=== PATIENT | male | born 1950 | race Caucasian/White ===

== ENCOUNTER 2019-09-10 15:58 | Inpatient (IN) | payer OTHER ==
[~2019-09-10] VITALS: Ht 188 cm; Wt 126.1 kg
[2019-09-10] VITALS (12 sets, daily range): BP systolic 86–145; BP diastolic 54–93
--- NOTE | ~2019-09-10 | EMS ---
[place] [address] EMS Patient Care Report Name: CAROLYN LOPEZ Room: [address] IN M.R.#: [id number] Admission: 09/10/19 Attend Phys: Dc Garber, Discharge: Date of : 54 Report #: [id number] THIS REPORT FOR: //name// Report Transmitted: 09/10/2019 18:15 EMS Care Summary [facility]ident [id number] @ 09/10/2019 14:48 Incident Location [address] [address] Patient CAROLYN LOPEZ Male, 68 Years 1950 Patient Address [address] [place] [address] Patient History Chronic Obstructive Pulmonary Disease (COPD),Atrial Fibrillation,Alcohol Abuse, Patient Allergies No known allergies, Patient Medications Furosemide, Gabapentin, Pantoprazole, Prednisone, Citalopram, Eliquis, Oxygen, Diltiazem, Albuterol, Chief Complaint Difficulty Breathing Disposition Transported No Lights/Dime Box, Upgraded Dispatch Reason Breathing Problem Transported To [facility] Narrative Dispatched: Med 2 was toned for a second out call; a male with difficulty breathing, moments of lost consciousness, and bleeding for days. [address] [address] EMS Patient Care Report Name: CAROLYN LOPEZ Room: [address] IN [facility]#: [id number] Admission: 09/10/19 Attend Phys: Dc Garber, Discharge: Date of : 54 Report #: [id number] Chief Complaint/Condition: The patient was found in a seated position on a scooter. A/Ox4, GCS 15 with visible difficulty breathing. The patient was talking a short sentences with Officer Jared of [facility] giving a history of the event. The patient later told EMS that he was withdrawing from alcohol and had these symptoms before. History of Present illness/Injury: The patient gave a very vague history to EMS. He stated that he was released from two weeks prior but was unclear about the circumstances around his admission. He stated that he has had multiple falls since his release with injuries to his arms that he had been self bandaging. The patient also reported difficulty breathing for multiple days. He stated that he has woke up in various places in his apartment due to losing consciousness. It wasn't until transport that the patient stated that he was trying to withdraw from alcohol and had gone from a half gallon of whiskey a day down to two shots. The patient called 911 after waking from a moment of lost consciousness. Assessment: The patient was a male in his 60's, initially A/Ox4, GCS 15 with reported moments of lost consciousness. Airway patent, breathing equal, regular, fast, and with wheezes. CMS present with weak, irregular pulses. Skin pink, warm, and diaphoretic. See section for further. Reason for Ambulance: The patient originally requested transport back to . reported high call volume. After explaining the high call volume designation, the patient requested that EMS contact his son for further guidance on transport. The son requested transport to [facility]. The patient agreed. (delayed scene time due to EMS discussing transport options with patient) While in transport, the patient's condition deteriorated rapidly. Transport to [facility] was chosen due to closest facility and the patient's worsening condition. Treatments: EKG/!2 lead showing AFIB RVR. Oxygen administered via ETCO2 cannula, nebulizer, and BVM. Waveform showing obstruction with tachypnea. Improvement in waveform noted post breathing treatment. Kerlix utilized to restrain patient's arms due to him becoming increasingly violent. Patient continued to fight EMS while applying soft restraint. Chemical sedation opted. See section for further information. Summary: Med 2 responded due to Med 1 being on another alarm. Sawyer Nozzle Tender Melinda assisted EMS on the call via on scene requested mutual aid. Med 2 arrived and made patient contact. Vitals obtained and treatment initiated. Report received from Officer Jared and the patient gave a brief history. Delayed scene time due to patient deciding on hospital choice. The patient had to be physically moved from his scooter onto the stretcher due to weakness. Hospital choice made after consulting [place] [address] EMS Patient Care Report Name: JESSICACAROLYN Room: [address] IN M.R.#: [id number] Admission: 09/10/19 Attend Phys: Dc Garber, Discharge: Date of : 54 Report #: [id number] secured in Med 2. Transport started towards [place]. The patient informed EMS that he was an alcoholic and that he had quit drinking with the exception of "2 shots of whiskey today." He said that he had detoxed from alcohol before with the same symptoms. While en route, the patient's mental status decreased. He began to pull his EKG off (multiple times) and fight against providers assisting him. Transport was upgraded to emergent due to his condition deteriorating. Versed was given due to his combative nature. Immediately following the medication push, the patient had a significant drop in GCS and he bit his tongue. Report called into [facility] and transport diverted to that facility due to patient presentation. Bleeding controlled by staff and BVM utilized when the patient's respiratory effort decreased. The patient was delivered into the ED at [facility] and placed in Trauma 1. Report given to staff and the patient was sheet transferred to bed. Signatures obtained and paperwork gathered. Med 2 cleared the hospital and returned. Initial Vitals @15:58R: 14,GCS: 6,EtCO2: 0,SpO2: 90, @15:53P: 116,R: 12,BP: 77/49,GCS: 6,EtCO2: 8,SpO2: 88,Revised Trauma: 9, @15:43R: 28,GCS: 10,EtCO2: 42, @15:38P: 148,R: 30,BP: 133/101,GCS: 13,EtCO2: 43,SpO2: 93,Revised Trauma: 11, @15:33P: 161,R: 20,GCS: 14,EtCO2: 29,SpO2: 92, @15:48P: 96,R: 26,GCS: 9,EtCO2: 35, @15:01R: 30,BP: 158/82,GCS: 15,Glucose: 218,Revised Trauma: 11, @15:19P: 127,R: 29,GCS: 15,EtCO2: 37,SpO2: 95, @15:13P: 130,R: 32,GCS: 15,EtCO2: 53,SpO2: 94, @15:28P: 133,R: 27,GCS: 15,EtCO2: 49,SpO2: 92, Assessments @14:55MENTAL:Person Oriented,Time Oriented,Event Oriented,Place Oriented,SKIN:Diaphoresis,HEENT:LUNG SOUNDS:ABDOMEN:PELVIS//GI:EXTREMITIES:Left Arm: Abnormal Pulse,Right Arm: Abnormal Pulse,Left Leg: Edema,Left Leg: Weakness,Right Leg: Edema,Right Leg: Weakness,PULSE:Radial: 1+ Thready,NEURO:Tremors,Abnormal Gait,@15:50MENTAL:Unresponsive,SKIN:Diaphoresis,Cold,Pale,HEENT:Neck/Airway: Compromised,LUNG SOUNDS:Left Upper: Distension,Left Lower: Distension,Right Upper: Distension,Right Lower: Distension,ABDOMEN:Left Upper: Distension,Left Lower: Distension,Right Upper: Distension,Right Lower: Distension,PELVIS//GI:EXTREMITIES:Right Arm: Abnormal Pulse,Left Leg: Edema,Right Leg: Edema,Left Arm: Abnormal Pulse,PULSE:Radial: 1+ Thready,NEURO:Other,Tremors, Impression Alcohol dependence with withdrawal Procedures @15:46Midazolam - 2.5 Milligrams (mg) - Intravenous (IV)Response: [place] [address] EMS Patient Care Report Name: CAROLYN LOPEZ Room: [address] IN M.R.#: [id number] Admission: 09/10/19 Attend Phys: Dc Garber, Discharge: Date of : 54 Report #: [id number] Worse@15:50Oxygen FlowRate: 25 Device: Bag Valve Mask (BVM) Response: ImprovedSucceeded@15:1912-Lead ECGResponse: UnchangedSucceeded@15:25Albuterol - 2.5 Milligrams (mg) - NebulizedResponse: Improved@15:25Atrovent - 0.5 Milligrams (mg) - NebulizedResponse: Improved@15:00Oxygen FlowRate: 6 Device: CO2 Nasal Cannula Response: ImprovedSucceeded@15:25Oxygen FlowRate: 8 Device: Nebulizer Response: ImprovedSucceeded@15:38Patient RestraintResponse: UnchangedFailed@14:55ALS AssessmentResponse: UnchangedSucceeded@15:20BandagingResponse: ImprovedSucceeded@15:24Lactated Ringers 500cc (18 ga) Site: Antecubital-LeftResponse: UnchangedSucceeded@15:52OPA Response: UnchangedFailed Timeline 14:48,Call Received 14:48,Dispatched 14:49,En Route 14:53,On Scene 14:55,At Patient 14:55,ALS Assessment,Response: UnchangedSucceeded, 15:00,Oxygen FlowRate: 6 Device: CO2 Nasal Cannula Response: ImprovedSucceeded, 15:01,BP: 158/82 M,PULSE: ,RR: 30 R,SPO2: Ox,ETCO2: ,B,PAIN: ,GCS: 15, 15:13,BP: / M,PULSE: 130,RR: 32 R,SPO2: 94 Ox,ETCO2: 53 ,BG: ,PAIN: ,GCS: 15, 15:19,12-Lead ECG,Response: UnchangedSucceeded, 15:19,BP: / M,PULSE: 127,RR: 29 R,SPO2: 95 Ox,ETCO2: 37 ,BG: ,PAIN: ,GCS: 15, 15:19,Depart Scene 15:20,Bandaging,Response: ImprovedSucceeded, 15:24,Lactated Ringers 500cc 18 ga Site: Antecubital-Left,Response: UnchangedSucceeded, 15:25,Oxygen FlowRate: 8 Device: Nebulizer Response: ImprovedSucceeded, 15:25,Albuterol - 2.5 Milligrams (mg) - Nebulized,Response: Improved 15:25,Atrovent - 0.5 Milligrams (mg) - Nebulized,Response: Improved 15:28,BP: / M,PULSE: 133,RR: 27 R,SPO2: 92 Ox,ETCO2: 49 ,BG: ,PAIN: ,GCS: 15, 15:33,BP: / M,PULSE: 161,RR: 20 R,SPO2: 92 Ox,ETCO2: 29 ,BG: ,PAIN: ,GCS: 14, 15:38,Patient Restraint,Response: UnchangedFailed, 15:38,BP: 133/101 M,PULSE: 148,RR: 30 R,SPO2: 93 Ox,ETCO2: 43 ,BG: ,PAIN: ,GCS: 13, 15:43,BP: / M,PULSE: ,RR: 28 R,SPO2: Ox,ETCO2: 42 ,BG: ,PAIN: ,GCS: 10, 15:46,Midazolam - 2.5 Milligrams (mg) - Intravenous (IV),Response: Worse 15:48,BP: / M,PULSE: 96,RR: 26 R,SPO2: Ox,ETCO2: 35 ,BG: ,PAIN: ,GCS: 9, 15:50,Oxygen FlowRate: 25 Device: Bag Valve Mask (BVM) Response: ImprovedSucceeded, 15:52,OPA Response: UnchangedFailed, 15:53,BP: 77/49 M,PULSE: 116,RR: 12 R,SPO2: 88 Ox,ETCO2: 8 ,BG: ,PAIN: ,GCS: 6, 15:55,At Destination 15:58,BP: / M,PULSE: ,RR: 14 R,SPO2: 90 Ox,ETCO2: 0 ,BG: ,PAIN: ,GCS: 6, 16:45,Call Closed [facility] [address] [place] [address] EMS Patient Care Report Name: CAROLYN LOPEZ Room: [address] ADM IN M.R.#: [id number] Admission: 09/10/19 Attend Phys: Dc Garber, Discharge: Date of : 54 Report #: [id number] Disclaimer v1.1 Copyright 2019 [employer] This EMS Care Summary contains data elements from the applicable legal record (which may be displayed differently). It is designed to provide pertinent information for the following purposes: continuity of care, clinical quality, and state data reporting. The complete legal record is available to ED staff and administrators of the receiving hospital in [employer]'s Patient Tracker. All data is provided "as is."
--- NOTE | ~2019-09-10 | CON ---
[address] [address] CONSULTATION Name: CAROLYN LOPEZ Room: [address] IN M.R.#: [id number] Admission: 09/10/19 Attend Phys: Dc Garber, Discharge: Date of : 54 Report #: [id number] THIS REPORT FOR: //name// CC: EDMUNDO ANNE Physician staff Dc Garber DATE OF SERVICE: 09/11/2019 REQUESTING PHYSICIAN: Dc Garber MD REASON FOR CONSULTATION: Acute kidney injury. HISTORY OF PRESENT ILLNESS: The patient is a 68-year-old white male with medical history significant for severe alcoholism, history of morbid obesity, and atrial fibrillation who was recently discharged from [facility]. He was found to be unresponsive, a bottle of whiskey was found next to him. He was brought to Emergency Room, had to be intubated and now he is in Intensive Care Unit. He was febrile, hypotensive and acute kidney injury. He was seen by Dr. Hackett, Control Systems Developer and diagnosis was acute respiratory failure superimposed on chronic respiratory failure. The patient has end-stage COPD, most likely also has sepsis due to aspiration pneumonia. PAST MEDICAL HISTORY: As I mentioned earlier. SOCIAL HISTORY: Positive for severe alcoholism and tobaccoism. FAMILY HISTORY: Noncontributory. MEDICATIONS: Prior to admission reviewed. He was on azithromycin, prednisone taper, albuterol, Eliquis, Symbicort, calcium carbonate, Celebrex, vitamin B12, Voltaren, diltiazem, folic acid, Lasix, gabapentin, Protonix and MiraLax. REVIEW OF SYSTEMS: Unobtainable due to him being intubated. PHYSICAL EXAMINATION: GENERAL: Intubated, obese. VITAL SIGNS: Blood pressure 84/51, it was as low as 70/40, heart rate is 96, temperature 39.1. HEENT: Pupils are round. NECK: Fatty. LUNGS: With very decreased air movements. CARDIOVASCULAR: Irregular rate. ABDOMEN: Obese. LOWER EXTREMITIES: [place] [address] CONSULTATION Name: CRAOLYN LOPEZ Room: [address] IN [facility]#: [id number] Admission: 09/10/19 Attend Phys: Dc Garber, Discharge: Date of : 54 Report #: [id number] LABORATORY DATA: Serum sodium 140, potassium 2.7, chloride 100, carbon dioxide 34, BUN was 10, creatinine 1.2 today. Creatinine yesterday was 1.5, calcium is 8.4. ASSESSMENT: 1. Acute kidney injury due to hypotension. 2. Hypokalemia, needs to be replaced. 3. Sepsis likely due to aspiration pneumonia, possible urosepsis. Workup is in progress. 4. End-stage chronic obstructive pulmonary disease. 5. Alcoholism. PLAN: 1. Continue with fluids. 2. Continue with antibiotics. 3. Replace his potassium. 4. Overall, prognosis is poor. By: [id number] corey Saavedra
[2019-09-10 16:30] LABS: HEMATOCRIT 34.7 % (42.0-52.0); HEMOGLOBIN 11.3 gm/dL (14.0-18.0); MCH 32.7 pg (26.0-34.0); MCHC 32.5 g/dL (28.0-37.0); MCV 100.5 fL (80.0-100.0); MPV 9.8 fl. (7.2-11.1); NUCLEATED RBCS 0 /100WBC; PLATELET COUNT* 305 thou/uL (150-400); RBC 3.46 mil/uL (4.50-6.00); RDW-CV 15.6 % (10.5-14.5); WBC 20.1 thou/uL (4.0-11.0)
[2019-09-10 16:33] LABS: URINE BILIRUBIN NEGATIVE (Negative); URINE BLOOD 2+ (Negative); URINE CLARITY CLEAR; URINE COLOR YELLOW; URINE GLUCOSE-RANDOM NEGATIVE (Negative); URINE KETONES NEGATIVE (Negative); URINE LEUKOCYTES NEGATIVE (Negative); URINE NITRITE NEGATIVE (Negative); URINE PROTEIN 2+ (Negative); URINE SPECIFIC GRAVITY >= 1.030 (1.005-1.030); URINE UROBILINOGEN 0.2 E.U./dl (0.2-1.0)
[2019-09-10 16:35] LABS: CALCIUM 9.1 mg/dL (8.5-10.1); CREATININE 1.5 mg/dL (0.6-1.3)
[2019-09-10 16:37] LABS: INR 1.2; PROTIME 11.9 Seconds (9.20-11.50)
[2019-09-10 16:41] LABS: BE 2.2 mmol/L (-2 to +3)
[2019-09-10 16:45] LABS: PCO2 66.8 mmHg (35.0-45.0); PO2 467.8 mmHg (75.0-100.0); pH 7.278 (7.340-7.450)
[2019-09-10 16:46] LABS: ALBUMIN 3.3 g/dL (3.4-5.0); PHOSPHORUS* 5.7 mg/dL (2.5-4.9); TOTAL BILIRUBIN 1.2 mg/dL (<0.1-1.0); TOTAL PROTEIN 7.9 g/dL (6.4-8.2)
[2019-09-10 16:47] LABS: AMP/METHAMP Negative (Negative); BARBITURATES Negative (Negative); BENZODIAZEPINES Negative (Negative); COCAINE Negative (Negative); METHADONE Negative (Negative); OPIATES Negative (Negative); PCP Negative (Negative); THC Negative (Negative)
[2019-09-10] MEDS ORDERED: ELIQUIS5 MG PO (16:47)
[2019-09-10] MEDS ORDERED: TRAMADOL 50 MG50 MG PO (16:47)
[2019-09-10] MEDS ORDERED: VENTOLIN HFA 1818 GM INH (16:48)
[2019-09-10] MEDS ORDERED: FUROSEMIDE 40 M40 MG PO ×2 (16:48→16:50)
[2019-09-10] MEDS ORDERED: CELEBREX 200 M200 MG PO (16:48)
[2019-09-10] MEDS ORDERED: CELEXA 10 MG TA10 M1 PO (16:49)
[2019-09-10] MEDS ORDERED: SYMBICORT160 MCG/4. INH (16:49)
[2019-09-10] MEDS ORDERED: PROTONIX40 M2 PO (16:49)
[2019-09-10 16:50] LABS: HYALINE CASTS >10 Many /LPF (None Seen); SQUAMOUS >10 Many /LPF (0-3)
[2019-09-10] MEDS ORDERED: DILTIAZEM ER180 M2 PO (16:50)
[2019-09-10 16:51] LABS: MUCUS None Seen strn/LPF (None Seen); URINE WBC 0-5 Rare /HPF (0-5)
[2019-09-10] MEDS ORDERED: VOLTAREN GEL 1100 G1 TOP (16:51)
[2019-09-10] MEDS ORDERED: VITAMIN B-121000 MC2 PO (16:51)
[2019-09-10 16:52] LABS: AMORPHOUS URATES Few /LPF (None Seen); BACTERIA 1-9 Few /HPF (None Seen)
[2019-09-10] MEDS ORDERED: KLOR-CON 10 ER10 MEQ PO (16:52)
[2019-09-10] MEDS ORDERED: SPIRIVA18 MCG INH (16:52)
[2019-09-10] MEDS ORDERED: NEURONTIN100 MG PO (16:52)
[2019-09-10] MEDS ORDERED: LEXAPRO 10 MG T10 M2 PO (16:54)
[2019-09-10] MEDS ORDERED: RAYOS5 MG PO (16:55)
[2019-09-10] MEDS ORDERED: FOLIC ACID1 MG PO (16:55)
[2019-09-10 16:57] LABS: ABSOLUTE LYMPHOCYTES 3.4 thou/uL (0.8-5.3); ABSOLUTE MONOCYTES 1.6 thou/uL (0.0-1.2); ABSOLUTE NEUTROPHILS 15.1 thou/uL (1.6-8.1)
[2019-09-10 16:59] LABS: PLATELET ESTIMATE ADEQUATE; POLYCHROMASIA Occasional
[2019-09-11] VITALS (41 sets, daily range): BP systolic 71–122; BP diastolic 39–86
[2019-09-11 05:04] LABS: HEMOGLOBIN 10.7 gm/dL (14.0-18.0); MCH 32.3 pg (26.0-34.0); MCHC 32.3 g/dL (28.0-37.0); MCV 100.2 fL (80.0-100.0); MPV 9.9 fl. (7.2-11.1); RBC 3.3 mil/uL (4.50-6.00); RDW-CV 15.9 % (10.5-14.5); WBC 14.7 thou/uL (4.0-11.0)
[2019-09-11 05:12] LABS: BE 4.5 mmol/L (-2 to +3); PCO2 42.1 mmHg (35.0-45.0); PO2 67.3 mmHg (75.0-100.0); pH 7.454 (7.340-7.450)
[2019-09-11 05:14] LABS: INR 1.2; PROTIME 12.4 Seconds (9.20-11.50)
[2019-09-11 05:20] LABS: ALBUMIN 2.6 g/dL (3.4-5.0); ALKALINE PHOSPHATASE 180 U/L (46-116); AMMONIA 16 umol/L (11-32); ANION GAP 6 mmol/L (7-16); BUN 10 mg/dL (7-18); CALCIUM 8.4 mg/dL (8.5-10.1); CHLORIDE 100 mmol/L (98-107); CO2 34 mmol/L (21-32); CREATININE 1.2 mg/dL (0.6-1.3); GLUCOSE 93 mg/dL (70-99); MAGNESIUM 1.9 mg/dL (1.8-2.4); SGOT 26 U/L (15-37); SGPT 44 U/L (30-65); SODIUM 140 mmol/L (136-145); TOTAL BILIRUBIN 1.6 mg/dL (<0.1-1.0); TOTAL PROTEIN 6.4 g/dL (6.4-8.2); TROPONIN-I LEVEL <0.06 ng/mL (<0.06)
[2019-09-11 05:22] LABS: POTASSIUM 2.7 mmol/L (3.5-5.1)
--- NOTE | 2019-09-11 07:30 | NUR ---
Pt's son, Alistair, reports multiple concerns with patient, including living alone, everyday ETOH user (1 gallon of whiskey approx. every 3 days), frequent falls, and multiple hospital admissions due to ETOH withdrawal and/or respiratory status. Reports pt has been intubated "many times." States he normally admits to , but son is satisfied with pt being at [facility]. Also reports pt had failed a swallow eval during his last admission at and placement of feeding tube was recommended, which he states pt refused. Pt sedated with propofol gtt, currently running at 10 mcg/kg/min. Pt also received lorazepam multiple times overnight for intermittent twitching and twice for what appeared to be seizures, each lasting no more than 15-20 seconds. Pt's arms were stiffened with hands clenched, and jaw clenched with flushing to face. Each episode occurred following repositioning/turning pt. Pt febrile this am, T-max 102.[address] temp probe. Dr[address] Jcarlos nguyễn, orders received. Pt's BP dropped to 70s/40s at 0600. Propofol gtt stopped and pt stimulated with oral care and ET suctioning. BP mana to only 80s/40s. Dr. Jcarlos nguyễn, orders received for norepinephrine gtt and central line placement. At 0650, pt became agitated, pulling with arms which are restrained, and moving legs; pt's eyes opened as well, though pt did not seem to follow instructions while RN attempted to calm pt. Propofol gtt resumed at 20 mcg/kg/min and then dose of lorazepam given. Unable to get accurate BP due to pt's arm movements. Pt soon became calm, appearing to be lightly sedated, and BP 90s/50s. Propofol reduced to 10 mcg and BP 80s-90s/50s with MAP 60-65. Received communication from anesthesia that central line will be delayed due to multiple urgent placement needs at this time. Pt remains calm and stable. Pt in Afib (chronic) per monitor, rate 90s-110s. Pt has multiple skin tears and bruises secondary to falls at home. Pt edematous, especially to extremities. RLE more swollen that LLE. Will continue to monitor.
--- NOTE | 2019-09-11 09:54 | NUR ---
TIME OUT CALLED AT 0940. PT ORDER AND CONSENT VERIFIED. PT UNABLE TO SIGN CONSENT. CONSENT DONE MEDICAL NECESSITY. DR TIRADO PLACED CENTRAL LINE TO LEFT SUBCLAVIAN. PT TOLERATED WELL
--- NOTE | 2019-09-11 10:34 | EKG ---
[place] [address] ELECTROCARDIOGRAM REPORT Name: CAROLYN LOPEZ Room: [address] ADM IN M.R.#: [id number] Admission: 09/10/19 Attend Phys: Dc Garber, Discharge: Date of : 54 Report #: [id number] THIS REPORT FOR: //name// [facility] ED Test Date: 2019-09-10 Test Time: 16:45:52 Pat Name: CAROLYN LOPEZ Department: Room: [facility] Gender: M Patient Portal Representative: : 1950 Requested By: Don Botello Order Number: [id number] MD: Lukasz Albarran Measurements Intervals Hilton Rate: 135 P: NM: QRS: 71 QRSD: 96 T: -28 QT: 323 QTc: 485 Interpretive Statements Atrial fibrillation Low voltage, extremity leads Borderline prolonged QT interval No previous ECG available for comparison Electronically Signed On 09-11-2019 10:34:39 BUNDLE TIER AND LABELER by Lukasz Albarran [email or web address] <ELECTRONICALLY SIGNED> By: Lukasz Albarran MD, [facility] 09/11/19 1034 [id number] [id number] Lukasz Albarran MD, FACC /EPI
[2019-09-11 11:10] LABS: MAGNESIUM 1.8 mg/dL (1.8-2.4); PHOSPHORUS* 2.7 mg/dL (2.5-4.9)
--- NOTE | 2019-09-11 11:13 | CON ---
[address] [address] CONSULTATION Name: CAROLYN LOPEZ Room: [address] ADM IN M.R.#: [id number] Admission: 09/10/19 Attend Phys: Dc Garber, Discharge: Date of : 54 Report #: [id number] THIS REPORT FOR: //name// CC: FAM unknown Dc Garber DATE OF SERVICE: 09/11/2019 REQUESTING PHYSICIAN: Dr. Garber. REASON FOR CONSULTATION: Respiratory failure, on ventilator. DISCUSSION: The patient is a 68-year-old male with a long history of tobacco and alcohol abuse. It appears he has had multiple hospitalizations at [facility] and was just discharged several weeks ago. Their notes indicate he had acute on chronic respiratory failure due to end-stage COPD. I do not believe he was intubated at that time, but based on the records, he has been intubated previously. EMS transported into [facility] [place]. He was being bagged. They found a bottle of whiskey by him and was intubated by the Emergency Room physician. Subsequently, he was transferred over to the Intensive Care Unit. He has continued to require sedation. He has been on propofol with p.r.n. Ativan. When they have tried to decrease the propofol, he has gotten much more agitated. He has not been at [place] previously. We do have some records now from [facility]. Those notes indicate he has severe COPD. Also, has atrial fibrillation. He has had frequent falls and seizures. Has a history of heart failure with preserved EF. Some type of arthritis. They have notes indicated that with one of his prior hospitalizations, they did rule out rheumatoid arthritis. He has been on steroids, though it is not clear if this has been for his arthritis, COPD or combination of both. He has had hallucinations and issues with depression. Psychiatry has seen him at previously. It is not clear how compliant he has been with his medical regimen at home. Discharge medications from indicated he was supposed to taking azithromycin 250 mg on Monday, Monday, Monday; Lexapro; prednisone taper; p.r.n. acetaminophen; albuterol inhaler to use p.r.n. ; Eliquis 5 mg b.i.d. ; Symbicort 160/4.5 two puffs b.i.d. calcium carbonate; Celebrex vitamin B12 injections; Voltaren topical gel; diltiazem; folic acid; Lasix; gabapentin; Protonix; Senokot-S; MiraLax; thiamine; Spiriva; p.r.n. tramadol. SOCIAL HISTORY: Smoker, difficult to ascertain how much he was smoking recently. Old notes at indicate 1-2 packs of cigarettes per day. History [place] [address] CONSULTATION Name: CAROLYN LOPEZ Room: [address] IN [facility].#: [id number] Admission: 09/10/19 Attend Phys: Dc Garber, Discharge: Date of : 54 Report #: [id number] FAMILY HISTORY: Unable to obtain from the patient. Old notes indicate it is positive for strokes and coronary artery disease. REVIEW OF SYSTEMS: Unable to obtain from the patient. PHYSICAL EXAMINATION: GENERAL APPEARANCE: Large man. He is intubated, is on the ventilator. Currently sedated with propofol. Not responding to me. The patient is making some kind of jerky movements. Not following any commands. Systolic pressures in the 90s, heart rates in the 90s as well. He is a large man, orally intubated, has an gastric tube in place draining fluid. HEENT: Sclerae nonicteric. Mucous membranes are moist. He has a large thick neck. HEART: Tones little distant and partially overscored by overlying lung sounds. It is irregularly irregular. No S3 is appreciated. LUNGS: Show breath sounds to be diminished. He has scattered expiratory wheezes heard. Peak airway pressures are in the high 20s. No subcutaneous emphysema is noted. ABDOMEN: Obese and large. No definite hepatosplenomegaly is noted. EXTREMITIES: He has 1-2+ edema noted to the lower extremities. He has multiple ecchymotic areas noted in his legs and his arms. Has some open sores on his feet as well. LABORATORY AND X-RAY FINDINGS: Endotracheal tube. On admission, chest x-ray done yesterday, prominence of interstitial markings. Somewhat improved on this morning's film. Endotracheal tube in position. A CT head was done yesterday, no acute findings were noted. Arterial blood gases done initially He had a pH of 7.28, pCO2 of 67, a pO2 of 468 and that was just after intubation. This morning, he has a pH of 7.45, pCO2 of 42, pO2 of 67, bicarbonate of 29 with a saturation of 92%. On his chemistry; potassium is down to 2.7. Lactic acid was 2.9, now down to 1.5, BUN of 10, creatinine of 1.2, alkaline phosphatase 180. Transaminases are normal. Total bilirubin is 1.6. Calcium 8.4 with phosphorus of 5.7. ProBNP of 4822. TSH was normal. Alcohol level was less than 10. Drug screen was negative, otherwise. White blood cell count 14,700, hemoglobin 10.7, hematocrit 33, MCV 100, platelets were 242,000. Blood cultures have been sent. IMPRESSION: 1. Acute respiratory failure superimposed on chronic respiratory failure. Per notes from [facility], he has end-stage COPD, most likely that is severe. It appears he is O2 and possibly also steroid dependent. 2. Ongoing tobacco abuse. 3. Altered level of consciousness. Alcohol level of 0 with a history of ETOH abuse, may very well be having alcohol withdrawal. 4. Medical noncompliance. 5. History of arthritis, suspect may be an inflammatory type. 6. Anemia, suspect it is related [place] [address] CONSULTATION Name: CAROLYN LOPEZ Room: [address] IN ..#: [id number] Admission: 09/10/19 Attend Phys: Dc Garber, Discharge: Date of : 54 Report #: [id number] 7. Obesity. 8. Atrial fibrillation. Appears to be a poor candidate for chronic anticoagulation therapy. 9. Ongoing fall risk. By history, he has had significant number of falls and has continued to fall. Poor candidate for long-term anticoagulation therapy. RECOMMENDATIONS: 1. I will maintain with propofol p.r.n. and Ativan at this time. 2. Continue bronchodilator therapy. IV steroids, and aggressive bronchodilator therapy. 3. Not clear when mental status will allow us to proceed with working on extubation. 4. Long-term, we will need to address goals of care. Questions and ability to continue to care for himself at home with information we have at this time. <ELECTRONICALLY SIGNED> By: Tania Frances MD 09/11/19 1113 [id number] Frances MD /nt
[2019-09-11 12:13] LABS: BE 6.5 mmol/L (-2 to +3); PCO2 46.7 mmHg (35.0-45.0); PO2 74.5 mmHg (75.0-100.0); pH 7.447 (7.340-7.450)
--- NOTE | 2019-09-11 12:49 | NUR ---
ICU rounds: Pt on vent and intubated. Central line placed. Severe ETOH abuse. Frequent falls at home. On propofol, plan to start Levo gtt. CM spoke at length with Pt's son. Pt resides at home alone. Independent to a degree, but has a walker, cane and scooter at home. Per son, Pt started drinking heavily post his dying 10 years ago. Son moved Pt out of his home about 2 years ago, d/t black mold. At that time, Pt went to live with his son and DIL, Pt stopped drinking and lost weight, was doing well until he moved back to the [facility] into his own apartment. Pt has episodes of hallucinations. Has home o2, but is not compliant with it. Son admits that family provides Pt with the ETOH, so that he doesn't drive. Pt has 2 sisters that live near that assist with meals as needed. Per son, Pt has been hospitalized at least 3-4 times over the past 2 months, Pt has been at [facility], [facility] and . Son arranged for Pt's meds and groceries to be delievered to his home. Pt is current with but son is unsure of agency name. SOn would liek for Pt to go to an LONG TERM. [place], therapies will need to see once Pt off vent. Following Alistair (son) [phone]
--- NOTE | 2019-09-11 13:26 | NUR ---
WOUND CARE NOTE: CONSULT RECEIVED FOR MULTIPLE SKIN TEARS WITH EDEMA. PATIENT IS VENTED IN THE ICU. PER PATIENT'S CHART REVIEW, PATIENT HAS HAD MULTIPLE FALLS. MULTIPLE AREAS OF SKIN TEARS, SCABS AND BRUISING. BILATERAL LOWER LEGS AND FEET WITH EDEMA 3-4+ PITTING. ABLE TO DOPPLE PATIENT'S PEDAL PULSES. CLEANSED OPENED AREAS AND APPLIED OPTIFOAM AG TO AREAS THAT ARE NOT SCABBED OVER, LEFT LATERAL LEG AND LEFT FOREARM. PATIENT ALSO HAS A PUSTULE TO THE LEFT HEEL. RECOMMEND COMPRESSION THERAPY TO BILATERA LEGS-SPOKE WITH PHYSICIAN THIS IS OK IF VENOUS DOPPLER OK. KEEP HEELS ELEVATED OPTIFOAM AG TO LEFT LATERAL LEG SKIN TEARS AND LEFT FOREARM SKIN TEARS THAT ARE OPEN. CHANGE Q3 DAYS AND PRN ENCOURAGE GOOD NUTRTION/HYDRATION ONCE PATIENT ABLE TO EAT. LIMIT HOB <30 DEGREES IF PATIENT CAN TOLERATE OBED MATTRESS-ALREADY IN PLACE
--- NOTE | 2019-09-11 13:59 | 2DMMODE ---
[place] [address] 2 D/M-MODE ECHOCARDIOGRAM Name: CAROLYN LOPEZ Room: [address] IN [facility]#: [id number] Admission: 09/10/19 Attend Phys: Dc Knight Discharge: Date of : 54 Date of Service: 09/11/19 1359 Report #: [id number] THIS REPORT FOR: //name// APPROVED REPORT Study performed: 09/11/2019 10:25:47 EXAM: Comprehensive 2D, Doppler, and color-flow Echocardiogram Patient Location: In-Patient Room #: [facility] Status: routine BSA: 2.48 HR: 102 bpm BP: 84/51 mmHg Rhythm: Atrial Fibrillation Other Information Study Quality: Good Indications Congestive Heart Failure Atrial Fibrillation 2D Dimensions IVSd: 11.63 (7-11mm) LVOT Diam: 21.58 (18-24mm) LVDd: 45.43 mm PWd: 12.46 (7-11mm) Ascending Ao: 34.88 (22-36mm) LVDs: 27.97 (25-40mm) Aortic Root: 39.63 mm Volumes Left Atrial Volume (Systole) LA ESV Index: 36.90 mL/m2 Aortic Valve AoV Peak Eren.: 1.49 m/s AO Peak Gr.: 8.89 mmHg LVOT Max P.55 mmHg AO Mean Gr.: 5.00 mmHg LVOT Mean P.51 mmHg LVOT Max V: 1.07 m/s AO V2 VTI: 19.80 cm LVOT Mean V: 0.72 m/s ANDRIA (VTI): 2.56 cm2 LVOT V1 VTI: 13.89 cm TDI Lateral E' Eren.: 0.16 m/[place] [address] 2 D/M-MODE ECHOCARDIOGRAM Name: CAROLYN LOPEZ Room: [address] IN .R.#: [id number] Admission: 09/10/19 Attend Phys: Dc Knight Discharge: Date of : 54 Date of Service: 09/11/19 1359 Report #: [id number] Pulmonary Valve PV Peak Eren.: 1.07 m/s PV Peak Gr.: 4.57 mmHg Left Ventricle The left ventricle is normal size. There is normal LV segmental wall motion. There is normal left ventricular wall thickness. Left ventricular systolic function is normal. The left ventricular ejection fraction is within the normal range. LVEF is 65%. This study is not technically sufficient to allow evaluation of the LV diastolic function due to atrial fibrillation. Right Ventricle The right ventricle is normal size. The right ventricular systolic function is normal. Atria Left atrium is mildly dilated. The right atrium size is normal. Aortic Valve Mild aortic valve sclerosis. No aortic regurgitation is present. There is no aortic valvular stenosis. Mitral Valve Mild mitral annular calcification. There is no mitral valve regurgitation noted. No evidence of mitral valve stenosis. Tricuspid Valve The tricuspid valve is normal in structure. Unable to assess PA pressure. Trace tricuspid regurgitation. Pulmonic Valve The pulmonary valve is normal in structure. There is no pulmonic valvular regurgitation. Great Vessels The aortic root is normal in size. IVC is normal in size and collapses >50% with inspiration. Pericardium There is no pericardial effusion. <Conclusion> The left ventricle is normal size. There is normal left ventricular wall thickness. Left ventricular [place] [address] 2 D/M-MODE ECHOCARDIOGRAM Name: CAROLYN LOPEZ Room: [address] IN [facility].#: [id number] Admission: 09/10/19 Attend Phys: Dc Knight Discharge: Date of : 54 Date of Service: 09/11/19 1359 Report #: [id number] The left ventricular ejection fraction is within the normal range. LVEF is 65%. This study is not technically sufficient to allow evaluation of the LV diastolic function due to atrial fibrillation. The right ventricle is normal size. Left atrium is mildly dilated. Mild aortic valve sclerosis. No aortic regurgitation is present. There is no aortic valvular stenosis. Mild mitral annular calcification. There is no mitral valve regurgitation noted. No evidence of mitral valve stenosis. The tricuspid valve is normal in structure. IVC is normal in size and collapses >50% with inspiration. There is no pericardial effusion. There is normal LV segmental wall motion. <ELECTRONICALLY SIGNED> By: Lukasz Albarran MD, FACC 09/11/19 1359 1359 1359 Lukasz Albarran MD, FACC /INF
[2019-09-11 16:27] LABS: INFLUENZA A ANTIGEN Negative (Negative); INFLUENZA B ANTIGEN Negative (Negative)
[2019-09-12] VITALS (33 sets, daily range): BP systolic 94–129; BP diastolic 59–83
[2019-09-12 04:46] LABS: ABSOLUTE BASOPHILS 0.1 thou/uL (0.0-0.2); ABSOLUTE LYMPHOCYTES 0.6 thou/uL (0.8-5.3); ABSOLUTE MONOCYTES 0.6 thou/uL (0.0-1.2); ABSOLUTE NEUTROPHILS 21.9 thou/uL (1.6-8.1); BASOPHILS 0.3 %; HEMATOCRIT 31.9 % (42.0-52.0); HEMOGLOBIN 10.5 gm/dL (14.0-18.0); LYMPHOCYTES 2.7 %; MCH 32.5 pg (26.0-34.0); MCHC 32.8 g/dL (28.0-37.0); MCV 99.2 fL (80.0-100.0); MONOCYTES 2.5 %; MPV 9.9 fl. (7.2-11.1); NUCLEATED RBCS 0 /100WBC; PLATELET COUNT* 224 thou/uL (150-400); POLYS 94.5 %; RBC 3.22 mil/uL (4.50-6.00); RDW-CV 15.7 % (10.5-14.5); WBC 23.2 thou/uL (4.0-11.0)
[2019-09-12 05:09] LABS: ALBUMIN 2.1 g/dL (3.4-5.0); CREATININE 1.1 mg/dL (0.6-1.3); POTASSIUM 3.3 mmol/L (3.5-5.1); TOTAL BILIRUBIN 1.2 mg/dL (<0.1-1.0); TOTAL PROTEIN 5.4 g/dL (6.4-8.2)
[2019-09-12 05:10] LABS: ANION GAP 5 mmol/L (7-16); BUN 14 mg/dL (7-18); CHLORIDE 104 mmol/L (98-107); CO2 30 mmol/L (21-32); CREATININE 1.1 mg/dL (0.6-1.3); GLUCOSE 185 mg/dL (70-99); MAGNESIUM 1.9 mg/dL (1.8-2.4); PHOSPHORUS* 2.2 mg/dL (2.5-4.9); POTASSIUM 3.2 mmol/L (3.5-5.1); SODIUM 139 mmol/L (136-145); TROPONIN-I LEVEL <0.06 ng/mL (<0.06)
[2019-09-12 05:46] LABS: BE 0.6 mmol/L (-2 to +3); PCO2 40.7 mmHg (35.0-45.0); pH 7.411 (7.340-7.450)
[2019-09-12 05:51] LABS: PO2 57.5 mmHg (75.0-100.0)
--- NOTE | 2019-09-12 11:20 | NUR ---
ICU rounds: EEG today. Propofol at 40. Afib, on Eliquis. Wound care following. Replacing K. On Merapenium and Vanc IV. Intubated, pulm planning a trial for tomorrow.
--- NOTE | 2019-09-12 13:21 | CON ---
[address] [address] CONSULTATION Name: CAROLYN LOPEZ Room: [address] ADM IN M.R.#: [id number] Admission: 09/10/19 Attend Phys: Dc Garber, Discharge: Date of : 54 Report #: [id number] THIS REPORT FOR: //name// CC: EDMUNDO ANNE Physician staff Dc Garber DATE OF SERVICE: 09/11/2019 ATTENDING PHYSICIAN: Dc Garber MD. REASON FOR EVALUATION: Febrile illness in a patient with respiratory arrest, likely has a degree of aspiration pneumonitis as well. HISTORY OF PRESENT ILLNESS: Chart reviewed, patient examined. This is a 68-year-old gentleman with known COPD, rheumatoid arthritis, apparently has a longstanding ethanol abuse, who was found minimally responsive and notably has had multiple falls attributed to the alcoholism, in addition he was complaining of dyspnea en route to the Emergency Room, required some benzodiazepine, became unresponsive with a rapid atrial fibrillation, did require intervention with respiratory support. He was intubated. Initial x-ray showed cardiomegaly, diffuse infiltrates. He was quite diaphoretic as well. He is still sedated on the vent at this point. Does have a known history of ethanol withdrawal. His multiple injuries appear to be superficial including the bilateral feet, did not show any acute fractures, although there was evidence of previous surgery on the right first MTP with the screw plate fixation apparatus. Left foot shows multiple superficial injuries as well. Just empirically started on broad-spectrum antimicrobial therapy with meropenem, piperacillin, and tazobactam. ALLERGIES: None known. MEDICATIONS: Currently include multivitamin, thiamine, propofol, ____ as needed, furosemide, Zosyn, apixaban, budesonide, diltiazem, gabapentin, pantoprazole, folic acid, cyanocobalamin, ipratropium and albuterol inhaler, arformoterol, meropenem, methylprednisolone. PAST MEDICAL HISTORY: History of seizures with ethanol withdrawal, rheumatoid arthritis, COPD, history of previous pneumonitis, multiple falls. SOCIAL HISTORY: Smokes half pack a day, drinks excessive amounts of ethanol primarily hard liquor. No illicit drug use. FAMILY HISTORY: Noncontributory. REVIEW OF SYSTEMS: [place] [address] CONSULTATION Name: CAROLYN LOPEZ Room: [address]#: [id number] Admission: 09/10/19 Attend Phys: Dc Garber, Discharge: Date of : 54 Report #: [id number] PHYSICAL EXAMINATION: GENERAL: Appears chronically ill, undernourished. He is sedated, maintained on ventilatory support, undernourished. VITAL SIGNS: Temperature 102.4, pulse 96, respirations 16, blood pressure is 84/51. HEENT: Normocephalic. NECK: Supple. ET and OG tube in place. LUNGS: Scattered coarse breath sounds. HEART: Borderline tachycardic. May have a soft systolic murmur. ABDOMEN: Obese. I cannot entirely exclude ascites. It is firm and I do not appreciate any significant response to deep palpation in terms of peritoneal signs. EXTREMITIES: Lower extremities have multiple areas that are contused across the dorsum of the foot. There is bruised area of superficial eschars, moderate degree of inflammation, has multiple skin tears as well about his ____. GENITOURINARY AND RECTAL: Deferred. LABORATORY DATA: Chest x-ray initially noted a cardiomegaly with moderately diffused interstitial prominence, question of interstitial edema versus pneumonitis. ABG: pH 7.278 initially, pCO2 of 66.8, pO2 of 467.8 that was on 100%. Repeat today, pH 7.447, pCO2 of 46.7, pO2 of 74.5 on 40%. Initial lactic acid 2.9, repeat 1.5, T4 of 4.8. Blood cultures sterile thus far. Electrolytes: Sodium 140, potassium of 2.7, chloride 100, bicarbonate is 34, anion gap of 6, BUN and creatinine 10 and 1.2, albumin 2.6. Total protein of 6.4. CBC: White count of 14.7, H and H 10.7 and 33.0, platelets of 242. ASSESSMENT: Febrile illness. The patient experienced respiratory arrest, certainly at high risk for infectious complications, likely has aspiration pneumonitis. We will continue combination therapy, adjust the regimen, better gram-positive coverage. We will check some urinary antigens, MRSA surveillance. Complicating factor is a high likelihood he will go into withdrawals as well, which would further confuse the clinical picture. We checked influenza. <ELECTRONICALLY SIGNED> By: Harley Sadler MD 09/12/19 1321 1258 [id number] Sadler MD /nt
--- NOTE | 2019-09-12 17:27 | NUR ---
VSS.ADOPTION MANAGER IN PLACE WITH NO CHANGES.PT REMAINS INTUBATED PER ORDERED SETTINGS.NO WEENING TRIAL TODAY.TRIAL ORDERED FOR THE AM.SEDATION VACATION COMPLETED FOR 30 MINUTES-PT BECAME RESTLESS AND REACHED FOR THE VENT TUBE.PT WAS ABLE TO OPEN EYES IN RESPONSE TO THE NURSE BUT NOT ABLE TO FOLLOW COMMANDS.NO APPARENT PAIN.CENTRAL LINE SECURE AND PATENT WITH IVF AND PROPOFOL INFUSING PER ORDERS.HAYDEN SECURE AND PATENT-IV LASIX GIVEN TODAY.OG SECURE @69 WITH LIS.ABDOMINAL ULTRASOUND COMPLETED.EEG COMPLETED.POTASSIUM REPLACED.Q2 HOUR POSITION CHANGES COMPLETED.HOURLY ROUNDING COMPLETED.WILL CONTINUE TO MONITOR FOR DURATION OF SHIFT.
[2019-09-13] VITALS (26 sets, daily range): BP systolic 93–135; BP diastolic 60–93
--- NOTE | 2019-09-13 05:40 | NUR ---
PT. SOMEWHAT PROGRESSING TOWARDS GOALS. LARGE BOWEL MOVEMENT, BATH GIVEN, COMPLETE BED CHANGE. PT. TO HAVE T TUBE TRIAL THIS A.M. AT 0800. CHEST XRAY COMPLETED THIS A.M. BILAT SOFT WRIST RESTRAINTS REMAIN IN PLACE WITH PROPOFOL GTT FOR SEDATION. VANC TROUGH TO BE DRAWN AT 0630, WILL WAIT TO HANG VANCOMYCIN. WILL CONTINUE TO MONITOR.
[2019-09-13 06:40] LABS: HEMOGLOBIN 10.5 gm/dL (14.0-18.0); MCH 32.4 pg (26.0-34.0); MCHC 32.7 g/dL (28.0-37.0); MCV 99.1 fL (80.0-100.0); MPV 9.7 fl. (7.2-11.1); RBC 3.23 mil/uL (4.50-6.00); RDW-CV 15.7 % (10.5-14.5); WBC 21.4 thou/uL (4.0-11.0)
[2019-09-13 07:01] LABS: CALCIUM 8.2 mg/dL (8.5-10.1); MAGNESIUM 2.1 mg/dL (1.8-2.4); TOTAL BILIRUBIN 0.7 mg/dL (<0.1-1.0); TOTAL PROTEIN 5.9 g/dL (6.4-8.2)
[2019-09-13 09:53] LABS: BE -0.4 mmol/L (-2 to +3); PO2 68.1 mmHg (75.0-100.0); pH 7.322 (7.340-7.450)
[2019-09-13 09:59] LABS: PCO2 52.3 mmHg (35.0-45.0)
--- NOTE | 2019-09-13 10:57 | NUR ---
ICU rounds: Continue on vent. Weaning trial this AM, no plans to extubate. Sedation on.
--- NOTE | 2019-09-13 12:46 | CON ---
[facility] [address] [place] [address] CONSULTATION Name: CAROLYN LOPEZ Room: [address] ADM IN M.R.#: [id number] Admission: 09/10/19 Attend Phys: Dc Garber, Discharge: Date of : 54 Report #: [id number] THIS REPORT FOR: //name// CC: EDMUNDO ANNE Physician staff Dc Garber DATE OF SERVICE: 09/11/2019 HISTORY OF PRESENT ILLNESS: This is a 68-year-old male patient who is unable to provide any history at all. I called the number, which is in the chart and nobody answered. I reviewed the notes and it looks like he presented with shortness of breath and multiple episode of losing the consciousness. He is a heavy alcohol drinker and at one time, was in [facility]. Record indicates that he is on Eliquis. I do not know when the last dose of Eliquis was. Presently, he is intubated and is on the vent. It looks like he is septic. ID has been consulted for that. His potassium is only 2.7. It looks like he is having multiple problems. He is being followed by multiple consultants. REVIEW OF SYSTEMS: Indicates that he was trying to decrease his alcohol intake and was drastically reducing that. He has a question of falls and was combative when he was brought to Emergency Room. Presently, he is fully sedated. This is all the 14-point review of system I can get. PAST MEDICAL HISTORY: Positive for similar alcohol related problem. FAMILY HISTORY: Unremarkable. SOCIAL HISTORY: He drinks large amount of alcohol. PHYSICAL EXAMINATION: Not possible much, he is sedated. He has no response of any kind. I cannot get any reflexes. There does not appear to be any meningeal sign. His pupils appear to be small and nonreactive. He is a well-developed individual who does not have any dysmorphic features of eyes, ears and face. His blood pressure is 106/68, respirations 28, pulse is 111, and temperature is 101. He is persistently febrile. When he came in, he was not febrile. He did have a CT scan of the head and C-spine when he came in, did not show any definite abnormality. IMPRESSION: This is a critically ill patient with sepsis and what looks like severe alcohol withdrawal and encephalopathy. He has multisystem problems. Neurologically, I will get an EEG done. He is going to be seen by ID to see if there are any systemic infections, which can explain his symptoms or the need to do spinal tap to exclude any SNAG GRINDER pathology and I will defer to [place] [address] CONSULTATION Name: CAROLYN LOPEZ Room: [address] IN M.R.#: [id number] Admission: 09/10/19 Attend Phys: Dc Garber, Discharge: Date of : 54 Report #: [id number] know when was his last dose of Eliquis and that may also be a problem. Neurologically, sometimes these patients do have seizures. I will get an EEG done, but otherwise the management is going to be systemic. <ELECTRONICALLY SIGNED> By: Talat Perez MD 09/13/19 1246 1432 [id number] Perez MD /nt
--- NOTE | 2019-09-13 12:46 | EEG ---
[address] [address] EEG STUDY REPORT Name: CAROLYN LOPEZ Room: [address] IN M.R.#: [id number] Admission: 09/10/19 Attend Phys: Dc Garber, Discharge: Date of : 54 Report #: [id number] THIS REPORT FOR: //name// CC: EDMUNDO ANNE Physician staff Dc Garber DATE OF SERVICE: 09/12/2019 This patient is admitted with altered mental status. He is intubated and is on propofol. The patient's EEG was done by placing the electrode by standard 10-20 system of electrode placement. Both referential and sequential montages were used for recording. Background activity in this patient's EEG is about 7 Hz and 25 microvolt. It is a low voltage activity. Photic stimulation is unremarkable. The patient is sedated. IMPRESSION: This is an abnormal EEG because it is slow and poorly formed. That is a nonspecific abnormality, which can occur with effect of medications like propofol, encephalopathy, dementia, etc. No active epileptiform activity was noticed during this record. Thank you very much for this referral. <ELECTRONICALLY SIGNED> By: Talat Perez MD 09/13/19 1246 1616 [id number] Perez MD /nt
--- NOTE | 2019-09-13 17:52 | NUR ---
PT CARE ASSUMED AFTER REPORT. SR/PVC'S ON MONITOR. PT STARTED ON PRECEDEX GTT. PROPOFOL GTT TITRATED OFF. HAYDEN TO DD. PT CONTINUES ON VENT. PT WITH WEANING TRIAL THIS AM. PT BECAME TACHY WITH INCREASED RR INTO THE 40'S. DR ROSALES NOTIFIED. WILL REPEAT TRIAL IN AM PER DR ORDER. PT AWAKE AND ABLE TO RESPOND DURING WEANING TRIAL. DENIED PAIN. HAYDEN TO DD. NG TO LIS. SLOWLY PROGRESSING TOWARDS GOALS. PT IN SOFT WRIST RESTRAINTS TO PREVENT PT FROM DISLODGING MEDICAL EQUIPMENT.
--- NOTE | 2019-09-13 19:55 | NUR ---
RECEIVED REPORT AND ASSUMED CARE AT 1900. VSS. ICU MONITORING IN PLACE. PT DENIES COMPLAINTS OF PAIN. ASSESSMENT COMPLETED CHARTED. PT ASKING WHEN HE WILL GET HIS BREATHING TUBE OUT. DISCUSSED PLAN OF CARE, WEANING TRIAL IN AM. PT COMMUNICATES UNDERSTANDING. BED LOCKED IN LOWEST POSTION, CALL LIGHT WITHIN REACH, BED ALARM ON.
[2019-09-14] VITALS (18 sets, daily range): BP systolic 97–143; BP diastolic 62–83
[2019-09-14 04:34] LABS: HEMATOCRIT 32.7 % (42.0-52.0); HEMOGLOBIN 10.7 gm/dL (14.0-18.0); MCH 32.4 pg (26.0-34.0); MCHC 32.7 g/dL (28.0-37.0); MCV 99.1 fL (80.0-100.0); RBC 3.3 mil/uL (4.50-6.00); RDW-CV 15.7 % (10.5-14.5); WBC 15.5 thou/uL (4.0-11.0)
[2019-09-14 05:52] LABS: ALBUMIN 2.2 g/dL (3.4-5.0); CALCIUM 8.4 mg/dL (8.5-10.1); CREATININE 0.9 mg/dL (0.6-1.3); MAGNESIUM 2.4 mg/dL (1.8-2.4); PHOSPHORUS* 3.4 mg/dL (2.5-4.9); POTASSIUM 4.3 mmol/L (3.5-5.1); TOTAL BILIRUBIN 0.6 mg/dL (<0.1-1.0); TOTAL PROTEIN 5.4 g/dL (6.4-8.2)
[2019-09-14 08:09] LABS: ANTI-Xa-UNFRACTIONATED HEP 7.426; BE 4.4 mmol/L (-2 to +3); PCO2 45.8 mmHg (35.0-45.0); PO2 60.9 mmHg (75.0-100.0); pH 7.426 (7.340-7.450)
--- NOTE | 2019-09-14 18:47 | NUR ---
THIS SENIOR MANUFACTURING TECHNICIAN ASSUMED CARE OF PT AT 0700 AFTER RECEIVING SHIFT REPORT. PT ADVANCED TOWARD GOALS TODAY PT WAS EXTUBATED AT 0930 TOLERATED WELL OG ALSO REMOVED AND DISCONTINUED AT 0930 ABGS WITHIN NORMAL LIMITS PT ADNACED TO REG DIET BED SIDE SWALLOW COMPLETED NO ISSUES WITH SWALLOWING. PT CONSUMED ALL OF LUNCH AND DINNER SON VISITED DURING LUNCH. CHANGED AND REPLACD ALL WOUND DRESSINGS BM X2 PT IS FRIENDLY AND PLEASANT
[2019-09-15] VITALS (13 sets, daily range): BP systolic 113–155; BP diastolic 71–96
[2019-09-15 03:46] LABS: HEMATOCRIT 33.2 % (42.0-52.0); HEMOGLOBIN 10.9 gm/dL (14.0-18.0); MCH 32.4 pg (26.0-34.0); MCHC 32.9 g/dL (28.0-37.0); MCV 98.4 fL (80.0-100.0); RBC 3.37 mil/uL (4.50-6.00); RDW-CV 15.7 % (10.5-14.5); WBC 18.7 thou/uL (4.0-11.0)
[2019-09-15 04:01] LABS: ALBUMIN 2.7 g/dL (3.4-5.0); CALCIUM 8.3 mg/dL (8.5-10.1); MAGNESIUM 2.4 mg/dL (1.8-2.4); PHOSPHORUS* 3.2 mg/dL (2.5-4.9); POTASSIUM 3.6 mmol/L (3.5-5.1); TOTAL BILIRUBIN 0.6 mg/dL (<0.1-1.0); TOTAL PROTEIN 6.2 g/dL (6.4-8.2)
--- NOTE | 2019-09-15 04:37 | NUR ---
RECEIVED REPORT AND ASSUMED CARE AT 1900. VSS. ICU MONITORING IN PLACE. PT REPORTS PAIN TO R SHOULDER AND ARTHRITIS. NOTIFIED, ORDERS RECEIVED. PT UP WITH ASSIST WITH WALKER, 3LNC. ASSESSMENT COMPLETED CHARTED. BED LOCKED IN LOWEST POSITION, CALL LIGHT WITHIN REACH, BED ALARM ON.
--- NOTE | 2019-09-15 10:28 | NUR ---
PT TRANSFERRED TO TELE UNIT ROOM 204. ORIENTED TO ROOM. PT HAS NO CONCERNS AT THIS TIME. CLWR. WCTM.
--- NOTE | 2019-09-15 16:22 | NUR ---
PT PROGRESSING TOWARDS GOALS THIS SHIFT. TOLERATING REGULAR DIET. TRANSFERRED TO TELE UNIT. SPLINT PLACED TO RT WRIST. PT IS WEIGHT BEARING TOLERATED TO RT WRIST. PT C/O GENERALIZED PAIN THAT WAS SOMEWHAT MANAGED WITH ONE DOSE PRN IV FENTANYL. PT CONTINUES ON 3L/O2 AND REPORTS THAT IS HIS HOME DOSE OXYGEN. UP TO CHAIRS FOR MEALS THIS SHIFT. PT REQUIRES ASSIST X1 FOR TRANSFERS. NO OTHER CONCERNS AT THIS TIME. CLWR. WCTM.
[2019-09-16 01:21] VITALS: BP 143/92
[2019-09-16 04:00] VITALS: BP 117/79
[2019-09-16 04:49] LABS: HEMATOCRIT 36.1 % (42.0-52.0); HEMOGLOBIN 11.8 gm/dL (14.0-18.0); MCHC 32.7 g/dL (28.0-37.0); MPV 9.2 fl. (7.2-11.1); RBC 3.68 mil/uL (4.50-6.00); RDW-CV 15.3 % (10.5-14.5); WBC 23.8 thou/uL (4.0-11.0)
--- NOTE | 2019-09-16 04:50 | NUR ---
PT A&O X4, MAINTIANING O2 SATS ON 3L NC. C/O PAIN TREATED WITH PRN MEDICATION AND ABLE TO CONTROL AT A TOLERABLE LEVEL. PT DOES WELL USING CALL LIGHT FOR ASSISTANCE. NO OTHER CONCERNS STATED BY PT AT THIS TIME, CURRENTLY IN BED WATCHING TV WITH CALL LIGHT WITHIN REACH.
[2019-09-16 05:17] LABS: ALBUMIN 2.6 g/dL (3.4-5.0); CALCIUM 8.4 mg/dL (8.5-10.1); MAGNESIUM 2.5 mg/dL (1.8-2.4); PHOSPHORUS* 3.2 mg/dL (2.5-4.9); TOTAL BILIRUBIN 0.7 mg/dL (<0.1-1.0); TOTAL PROTEIN 5.8 g/dL (6.4-8.2)
[2019-09-16 08:00] VITALS: BP 139/85
[2019-09-16 12:00] VITALS: BP 129/78
--- NOTE | 2019-09-16 14:06 | NUR ---
DPOA completed. Pt hopeful that he will qualify for acute rehab. Rehab consult to be placed.
[2019-09-16 16:00] VITALS: BP 127/87
[2019-09-16 20:00] VITALS: BP 120/82
[2019-09-17 01:00] VITALS: BP 124/78
--- NOTE | 2019-09-17 04:38 | NUR ---
PT ACTIVITY LEVEL IS IMPROVING, ABLE TO WALK SHORT DISTANCES. EDEMA TO LEGS AND ARMS WEEPING, DRESSINGS CHANGES AND EDUCATED PT ON ELEVATING LEGS WHEN POSSIBLE. MAINRICHARDING SATS ON HOME DOSE O2 AT 3L VIA NC. WORKING ON DISCHARGE TO REHAB TO CONT IMPROVEMENT. CURRENTLY UP IN CHAIR WITH LEGS ELEVATED CALL LIGHT WITHIN REACH.
[2019-09-17 04:57] VITALS: BP 133/81
[2019-09-17 08:00] VITALS: BP 130/70
[2019-09-17 11:45] LABS: HEMATOCRIT 39.5 % (42.0-52.0); HEMOGLOBIN 12.7 gm/dL (14.0-18.0); MCHC 32.2 g/dL (28.0-37.0); MCV 99.3 fL (80.0-100.0); NUCLEATED RBCS 0 /100WBC; PLATELET COUNT* 281 thou/uL (150-400); RBC 3.98 mil/uL (4.50-6.00); RDW-CV 15.7 % (10.5-14.5); WBC 25.7 thou/uL (4.0-11.0)
--- NOTE | 2019-09-17 11:45 | NUR ---
Spoke with Pt's son, per son family would be able to either stay with Pt or have Pt stay with them post dc from acute rehab. Updated vision rehabilitation therapist, awaiting insurance auth
[2019-09-17 12:02] VITALS: BP 114/70
[2019-09-17 12:04] LABS: ALBUMIN 2.6 g/dL (3.4-5.0); CALCIUM 8.3 mg/dL (8.5-10.1); CREATININE 0.9 mg/dL (0.6-1.3); MAGNESIUM 2.6 mg/dL (1.8-2.4); POTASSIUM 4.2 mmol/L (3.5-5.1); TOTAL BILIRUBIN 0.7 mg/dL (<0.1-1.0); TOTAL PROTEIN 5.7 g/dL (6.4-8.2)
[2019-09-17 12:43] LABS: ABSOLUTE MONOCYTES 1.5 thou/uL (0.0-1.2); ABSOLUTE NEUTROPHILS 23.1 thou/uL (1.6-8.1); PLATELET ESTIMATE ADEQUATE
[2019-09-17 17:22] VITALS: BP 83/65
--- NOTE | 2019-09-17 19:05 | NUR ---
ASSUMED PT CARE REPORT RECEIVED FROM NURSE PT IS AOX4 ON 3 L NC. VSS. OUT OF BED TO CHAIR. NO COMPLAINT. REHAB SAW PT , SEE NOTE. SPEECH THERAPY WORKED WITH PT AND RECOMMENDED REHAB. SUPERVISOR LOOPING UPDATED. REHAB TEAM WORKING ON INSURANCE APPORVAL AND PLACEMENT. PT HAD A BOWEL MOVEMENT DURING DAY. USES URINAL DARK DELANO URINE. WOUND DRESSINGS LOOK INTACT. CALL LIGHT AT REACH. WILL CONTINUE TO MONITOR
[2019-09-17 20:00] VITALS: BP 135/76
[2019-09-18] VITALS: BP 132/72
[2019-09-18 04:00] VITALS: BP 153/77
--- NOTE | 2019-09-18 04:12 | NUR ---
PT CONT TO SHOW PROGRESS, INCREASING DISTANCE ABLE TO WALK, ALSO SHOWING IMPROVEMENT IN STRENGTH OF GAIT. PT HAS HAD BM X2 WITH LOOSE STOOL. MAINTAINING SATS ON 3L NC. PT UP IN RECLINER THIS SHIFT, STATING HE IS ABLE TO SLEEP BETTER IN THAT THEN IN THE BED. ENCOURGED TO KEEP LEGS ELEVATED WHILE IN RECLINER. C/O PAIN TO SHOULDERS TREATED WITH PRN MEDS WITH PARTIAL RELIEF. NO OTHER CONCERNS NOTED, CALL LIGHT WITHIN REACH.
[2019-09-18 08:00] VITALS: BP 114/72
--- NOTE | 2019-09-18 11:34 | NUR ---
Continue to await insurance auth for acute rehab. Following.
--- NOTE | 2019-09-18 11:59 | CON ---
[address] [address] CONSULTATION Name: CAROLYN LOPEZ Room: [address] ADM IN M.R.#: [id number] Admission: 09/10/19 Attend Phys: Dc Garber, Discharge: Date of : 54 Report #: [id number] THIS REPORT FOR: //name// CC: Emigdio FABIAN Physician staff Dc Garber DICTATED BY: Zo Ragland [facility] DATE OF SERVICE: 09/12/2019 REASON FOR CONSULTATION: Anemia and alcohol abuse. HISTORY OF PRESENT ILLNESS: This is a 68-year-old male who presented to the Emergency Room after calling EMS who lives in an apartment, in which he was complaining of significant shortness of air and was having multiple episodes of loss of consciousness. When EMS arrived, they found a bottle of whiskey next to him and noting that he was recently hospitalized at [facility] in June for similar reasonings for multiple falls and loss of consciousness and having issues with shortness of air. The son on that note states that he drinks about a gallon of whiskey every 2-3 days. Length of time is unclear. However, EMS states he had fallen multiple times upon their arrival and he bit his tongue. He became very combative en route to the Emergency Room, they gave him some Versed. He became unresponsive with atrial fib, rapid RVR, they bagged him and then was in respiratory distress and then later was intubated and has remained intubated. It appears that patient was on home oxygen at 3 liters as well. It appears that his alcohol level on admission was negative as well as the rest of his drug screen at that particular time. It is unclear if he has ever had any GI evaluation or any workup regarding his liver secondary to his alcohol abuse since unable to obtain any information. All is obtained from his previous record and from the patient's chart. ALLERGIES: No known drug allergies. MEDICATIONS: From home include Eliquis, Ultram, Ventolin, Celebrex, furosemide, Symbicort, Protonix, Celexa, diltiazem, vitamin B12, Voltaren gel, Neurontin, Spiriva, Klor-Con, Lexapro, prednisone and folic acid. PAST MEDICAL HISTORY: Consists of COPD, atrial fib. He has had frequent falls and seizures, history of heart failure with preserved EF, sounds like osteoarthritis. FAMILY HISTORY: Noncontributory. SOCIAL HISTORY: Besides his drinking a gallon of whiskey every 2-3 [place] [address] CONSULTATION Name: CAROLYN LOPEZ Room: [address] IN [facility].#: [id number] Admission: 09/10/19 Attend Phys: Dc Garber, Discharge: Date of : 54 Report #: [id number] notes from indicates that he smokes 1-2 packs of cigarettes per day as well. REVIEW OF SYSTEMS: Twelve-point review of systems unable to obtain since the patient is intubated. PHYSICAL EXAMINATION: VITAL SIGNS: Temperature 36.9, pulse 97, respirations 28, blood pressure 105/73. HEART: Irregular rate and rhythm. LUNGS: Diminished with scattered expiratory wheezes and he is on the ventilator. ABDOMEN: Obese and very large, positive bowel sounds, no masses or tenderness noted. EXTREMITIES: He has got +1 to 2 edema of his lower extremities and multiple ecchymotic areas on his arms and legs. CT of the head was negative. LABORATORY DATA: It is noted that hemoglobin was 13.8 at [facility]. He is 10.5 now with a white count of 23.2, platelets 224. Sodium 139, GFR is 67, creatinine 1.1. Total bilirubin 1.2, alkaline phosphatase 143, ALT 23, AST 34. GGT 554, albumin is 2.1. PT 12.4, INR 1.2 and his MELD score is an 8. IMPRESSION: 1. Anemia. 2. Alcohol abuse history, one gallon of whiskey every 2-3 days. 3. Leukocytosis. 4. Respiratory failure secondary to chronic obstructive pulmonary disease. 5. Atrial fibrillation, on Eliquis. PLAN: 1. Ultrasound of abdomen to further evaluate his liver. 2. Monitor his LFTs. 3. Timing of EGD to be determined to evaluate for any esophageal varices to account for his anemia. 4. Avoid all NSAIDs. 5. Monitor for overt bleeding. Thank you for allowing us to participate in this patient's care. Please do not hesitate to call with any questions in regard to this consult. Agree with above assessment and plan as outlined by Zo Ragland <ELECTRONICALLY SIGNED> By: Alfred Alcaraz MD 09/18/19 1159 1209 [id number] Alcaraz MD /nt
[2019-09-18 12:19] VITALS: BP 123/70
--- NOTE | 2019-09-18 13:25 | NUR ---
WOUND CARE NOTE: REASSESSMENT LEFT FOREARM: MULTIPLE SKIN TEARS, MOST WITH STABLE SCABS. THE LARGEST TEAR MEASURES 5.5X3.5X.1. MOIST, PINK TISSUE. PATIENT HAD JUST RECEIVED A SHOWER, THESE WERE CLEANSED DURING THE SHOWER. APPLIED MULTIPLE LAYERS OF VASELINE GAUZE TO AREA. COVERED WITH 4X4 AND SECURED WITH ROLL GAUZE. RIGHT ARM: SKIN TEAR MEASURING 3.4X1.5X0.1. MOIST, PALE PINK WOUND BED. DRAINING SMALL AMOUNTS OF SEROUS DRAINAGE. CLEANSED DURING SHOWER. APPLIED MULITPLE LAYERS OF VASELINE GAUZE. COVERED WITH 4X4 AND SECURED WITH ROLL GAUZE. PATIENT HAD ARTERIAL STUDIES REVEALING TRIPHASIC WAVEFORMS. LEFT LEG WITH 3 SKIN TEARS. WEEPING SEROUS FLUID. BILATERAL LOWER EXTREMITIES WITH 3-4 + PITTING EDEMA. APPLIED LOTION TO INTACT SKIN. APPLIED OPTIFOAM AG TO SKIN TEARS ON LEFT LATERAL LEG. WRAPPED BILATERAL LEGS WITH 3-LAYER COMPRESSION WRAPS. PATIENT TOLERATED DRESSING CHANGES WELL. EDUCATED ON DRESSING SELECITON, COMMUNICATED UNDERSTANDING. EDUCATED PATIENT TO KEEP LEGS ELEVATED MUCH HE CAN. EDUCATED NOT TO GET THE WRAPS WET. EDUCATED ON GOOD NUTRTION FOR WOUND HEALING, COMMUNICATED UNDERSTANDING TO ALL EDUCATION. RECOMMEND KEEP LEGS ELEVATED 3-LAYER COMPRESSION WRAPS MAY TRANSITION TO TUBIGRIPS ONCE EDEMA HAS DECREASED ENCOURAGE GOOD NUTRTION/HYDRATION FOR WOUND HEALING
[2019-09-18 16:03] VITALS: BP 120/60
--- NOTE | 2019-09-18 16:28 | NUR ---
Insurance denied acute rehab. Hospitalist to complete peer to peer.
--- NOTE | 2019-09-18 16:55 | NUR ---
assumed pt care report received from nurse , pt is aox4, on 3 l nc. vss. no complaint. up to reclyner. shower given pr pt request. wund care done as well as wound pictures taken. discharge pending if accepted in rehab inpatient. pt not accepted. case operator aware. pt will remain in hospital for this night. will continue to monitor pt
--- NOTE | 2019-09-18 17:33 | NUR ---
pt heart rythm changed ot afib at arounf 1700-. heart rate in the 120s. ekg done. afib result. see chart. pt is asymptomatic. will continue to monitor
--- NOTE | 2019-09-18 18:36 | NUR ---
pt started on cardizem drip as ordered per . cardizem drip started at 5 cc per hour. will continue to monitor
[2019-09-18 20:00] VITALS: BP 123/65
[2019-09-19] VITALS: BP 102/65
--- NOTE | 2019-09-19 04:32 | NUR ---
ASSUMED CARE OF PATIENT FROM EDMUNDO GARCES AT THIS TIME. PATIENT RESTING WITH EYES CLOSED IN RECLINER. CALL LIGHT WITHIN REACH.
[2019-09-19 08:00] VITALS: BP 122/68
--- NOTE | 2019-09-19 11:04 | EKG ---
[place] [address] ELECTROCARDIOGRAM REPORT Name: CAROLYN LOPEZ Room: [address] ADM IN M.R.#: [id number] Admission: 09/10/19 Attend Phys: Dc Garber, Discharge: Date of : 54 Report #: [id number] THIS REPORT FOR: //name// 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 Coordinator: JOHANNA : 1950 Requested By: Nathan Navarro Order Number: [id number] Arian MD: Emigdio Bazan Measurements Intervals [place] Rate: 122 P: NC: QRS: 31 QRSD: 81 T: QT: 295 QTc: 421 Interpretive Statements Atrial fibrillation Ventricular premature complex Low voltage, extremity leads Baseline wander in lead(s) V6 Compared to ECG 09/10/2019 16:45:52 Ventricular premature complex(es) now present Electronically Signed On 09-19-2019 11:04:02 TANK DRIVER by Emigdio Bazan [email or web address] <ELECTRONICALLY SIGNED> By: Emigdio Bazan MD, [facility] 09/19/19 1104 1723 1723 Emigdio Bazan MD, [facility] /EPI
--- NOTE | 2019-09-19 11:04 | EKG ---
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
[2019-09-19 11:36] VITALS: BP 125/71
--- NOTE | 2019-09-19 11:55 | NUR ---
Insurance upheld acute rehab denial. CM faxed referral to Latoya at [facility], awaiting decision to accept, then will need insurance auth. Per , anticipate that Pt will be medically stable to dc tomorrow.
[2019-09-19 13:05] LABS: ABSOLUTE BASOPHILS 0.1 thou/uL (0.0-0.2); ABSOLUTE EOSINOPHILS 0.1 thou/uL (0.0-0.7); ABSOLUTE MONOCYTES 1.4 thou/uL (0.0-1.2); ABSOLUTE NEUTROPHILS 20.3 thou/uL (1.6-8.1); BASOPHILS 0.5 %; EOSINOPHILS 0.5 %; HEMOGLOBIN 11.8 gm/dL (14.0-18.0); LYMPHOCYTES 8.3 %; MCH 31.4 pg (26.0-34.0); MCHC 31.9 g/dL (28.0-37.0); MCV 98.3 fL (80.0-100.0); MPV 9.6 fl. (7.2-11.1); NUCLEATED RBCS 0 /100WBC; PLATELET COUNT* 300 thou/uL (150-400); POLYS 84.7 %; RBC 3.77 mil/uL (4.50-6.00); RDW-CV 15.9 % (10.5-14.5)
[2019-09-19 13:27] LABS: ALBUMIN 2.2 g/dL (3.4-5.0); CALCIUM 7.9 mg/dL (8.5-10.1); CREATININE 0.8 mg/dL (0.6-1.3); MAGNESIUM 2.3 mg/dL (1.8-2.4); POTASSIUM 3.8 mmol/L (3.5-5.1); TOTAL BILIRUBIN 0.8 mg/dL (<0.1-1.0); TOTAL PROTEIN 5.1 g/dL (6.4-8.2)
[2019-09-19 15:39] VITALS: BP 115/50
--- NOTE | 2019-09-19 19:35 | NUR ---
PT PROGRESSING TOWARD GOALS. UP TO CHAIR THIS SHIFT, ELEVATES LEGS, USES URINAL, CALLS APPROPRIALTY FOR NEEDS. VSS, AFIB ON THE MONITOR. CHARITY CHAPMAN DC'D TODAY. STARTED ON ORAL. PT WORKED WITH PT, WALKING IN ROOM. PAIN MEDS ADJUSTED. FALL PRECAUIONS IN PLACE. REPORT CALIXTO TO GRACIE WYATT
[2019-09-20] VITALS: BP 113/64
[2019-09-20 04:00] VITALS: BP 128/82
--- NOTE | 2019-09-20 06:30 | NUR ---
PATIENT PROGRESSING TOWARDS GOALS: PAIN MANAGED WITH ORAL MEDICATION AND ONLY REQUIRED IV PAIN MEDICATION ONCE. RE-EDUCATED PATIENT ON ATTEMPTING TO CONTROL PAIN WITHOUT FENTANYL. VERBALIZES UNDERSTANDING AND AGREES. PATIENT REMAINS ON 3L O2 NC, WEARS CHRONICALLY. CALL LIGHT WITHIN REACH
[2019-09-20 07:45] VITALS: BP 116/75
--- NOTE | 2019-09-20 11:17 | NUR ---
[facility] to initiate insurance auth for a possible weekend dc. Cdiff results pending.
[2019-09-20 12:19] VITALS: BP 114/78
[2019-09-20 18:02] VITALS: BP 101/65
--- NOTE | 2019-09-20 18:55 | NUR ---
ASSUMED PT CARE AT 0730, FULL ASSESMENT DONE CHARTED. PT A/O X4, UP SBA, C/O GENERALIZED PAIN, WOUND CARE DONE TODAY BY WOUND RN. PT FRUSTRAITED THAT HE HAS NOT BEEN APPROVED BY INSURANCE TO GO TO REHAB. PTS VSS, AFIB ON THE MONITOR, PTS HR MOSTLY IN THE LOW 100'S, UP TO 140'S AT TIMES IF MOVING AROUND. PT CALLS APPROPRIALTY FOR NEEDS. PLACED ON ISO FOR POSSIBLE CDIFF.
[2019-09-20 19:30] VITALS: BP 110/73
[2019-09-21 00:15] VITALS: BP 106/76
[2019-09-21 04:11] VITALS: BP 103/67
[2019-09-21 08:00] VITALS: BP 122/72
[2019-09-21 08:52] LABS: HEMOGLOBIN 12.3 gm/dL (14.0-18.0); MCHC 33.1 g/dL (28.0-37.0); MCV 96.7 fL (80.0-100.0); MPV 8.9 fl. (7.2-11.1); NUCLEATED RBCS 0 /100WBC; PLATELET COUNT* 322 thou/uL (150-400); RBC 3.83 mil/uL (4.50-6.00); RDW-CV 15.3 % (10.5-14.5); WBC 35.2 thou/uL (4.0-11.0)
[2019-09-21 09:03] LABS: ALBUMIN 2.4 g/dL (3.4-5.0); CALCIUM 8.2 mg/dL (8.5-10.1); CREATININE 0.8 mg/dL (0.6-1.3); POTASSIUM 3.7 mmol/L (3.5-5.1); TOTAL BILIRUBIN 0.7 mg/dL (<0.1-1.0); TOTAL PROTEIN 5.5 g/dL (6.4-8.2)
[2019-09-21 09:36] LABS: ABSOLUTE LYMPHOCYTES 3.5 thou/uL (0.8-5.3); ABSOLUTE MONOCYTES 1.8 thou/uL (0.0-1.2); ABSOLUTE NEUTROPHILS 29.9 thou/uL (1.6-8.1)
[2019-09-21 09:37] LABS: ANISOCYTOSIS Occasional; PLATELET ESTIMATE ADEQUATE
--- NOTE | 2019-09-21 11:30 | NUR ---
assumed pt care at 0730 am , report received from nurse. pt is aox4, tracing afib on cardiac surgeon. on 3 l nc. o2 saturation is 96% on 3 l nc. pt sitting in recliner. cdiff isolation precaution in place. pt complains of mild pain in right shoulder. this nurse performed wound care and change dressing on bilateral upper extremities. new kerlix and optifoam ag applied. pt had a bowel movement in the am. pt has good appetite. insurance auth pending from snf. order to discontinue central line per dr hollins. this nurse removed central line at 1125 am.line was pulled out by this nurse,pressure held for 5 min, no bleeding, no complication noted. cotton ball applied over area and secured with paper tape. call light within reach. will continue to monitor pt
[2019-09-21 12:46] VITALS: BP 135/78
[2019-09-21 16:07] VITALS: BP 126/73
[2019-09-21 19:45] VITALS: BP 114/70
--- NOTE | 2019-09-21 21:33 | NUR ---
INITA ASSESMENT COMPLETED AT 194. PT PLEASANT AND COOPERATIVE, CALL LIGHT IN REACH, PT USING PROPERLY. PT GIVEN PRN NORCO AND TRAMADOL AT THAT TIME FOR ARTHRITIC PAIN. PIN RESTING QUIETLY AT THIS TIME IN RECLINER.
[2019-09-22] VITALS: BP 129/71
[2019-09-22 03:48] VITALS: BP 116/74
[2019-09-22 08:00] VITALS: BP 127/73
[2019-09-22 10:07] LABS: ABSOLUTE BASOPHILS 0.1 thou/uL (0.0-0.2); ABSOLUTE EOSINOPHILS 0.1 thou/uL (0.0-0.7); ABSOLUTE LYMPHOCYTES 2.2 thou/uL (0.8-5.3); ABSOLUTE MONOCYTES 1.9 thou/uL (0.0-1.2); ABSOLUTE NEUTROPHILS 23.9 thou/uL (1.6-8.1); BASOPHILS 0.3 %; EOSINOPHILS 0.2 %; HEMOGLOBIN 11.6 gm/dL (14.0-18.0); LYMPHOCYTES 7.8 %; MCH 31.6 pg (26.0-34.0); MCHC 32.2 g/dL (28.0-37.0); MCV 98.1 fL (80.0-100.0); MONOCYTES 6.7 %; MPV 9.5 fl. (7.2-11.1); NUCLEATED RBCS 0 /100WBC; PLATELET COUNT* 307 thou/uL (150-400); RBC 3.67 mil/uL (4.50-6.00); RDW-CV 15.4 % (10.5-14.5); WBC 28.2 thou/uL (4.0-11.0)
[2019-09-22 10:13] LABS: CALCIUM 8.3 mg/dL (8.5-10.1); CREATININE 0.9 mg/dL (0.6-1.3)
[2019-09-22 10:23] LABS: ALBUMIN 2.3 g/dL (3.4-5.0); TOTAL BILIRUBIN 0.5 mg/dL (<0.1-1.0)
[2019-09-22 12:28] VITALS: BP 113/53
--- NOTE | 2019-09-22 14:16 | NUR ---
ASSUMED PT CARE AT 0800, AOX4, UP WITH ASSIST, USES COMMODE, URINAL. O2 SAT ON MID 80'S O2 INCREASE TO 4L NC. PT SOA WITH ACTIVITY. TRACING AFIB, TACH ON TELE. PT COMPLAINS OF GENERALIZED PAIN. MEDS GIVEN. PT ON CDIFF ISOLATION. PT HOURLY ROUNDING, CALL LIGHT WITHIN REACH, WILL CONTINUE TO MONITOR.
[2019-09-22 16:50] VITALS: BP 111/53
[2019-09-23 00:17] VITALS: BP 122/57
[2019-09-23 03:30] LABS: ABSOLUTE BASOPHILS 0.1 thou/uL (0.0-0.2); ABSOLUTE EOSINOPHILS 0.1 thou/uL (0.0-0.7); ABSOLUTE LYMPHOCYTES 1.9 thou/uL (0.8-5.3); ABSOLUTE MONOCYTES 2.1 thou/uL (0.0-1.2); ABSOLUTE NEUTROPHILS 24.8 thou/uL (1.6-8.1); BASOPHILS 0.3 %; EOSINOPHILS 0.2 %; HEMATOCRIT 36.4 % (42.0-52.0); HEMOGLOBIN 11.6 gm/dL (14.0-18.0); LYMPHOCYTES 6.7 %; MCH 31.3 pg (26.0-34.0); MCHC 31.8 g/dL (28.0-37.0); MCV 98.2 fL (80.0-100.0); MONOCYTES 7.3 %; MPV 9.2 fl. (7.2-11.1); NUCLEATED RBCS 0 /100WBC; PLATELET COUNT* 301 thou/uL (150-400); POLYS 85.5 %; RBC 3.71 mil/uL (4.50-6.00); RDW-CV 15.8 % (10.5-14.5)
[2019-09-23 03:33] LABS: CALCIUM 8.2 mg/dL (8.5-10.1); CREATININE 0.9 mg/dL (0.6-1.3); POTASSIUM 3.9 mmol/L (3.5-5.1)
[2019-09-23 03:57] VITALS: BP 131/73
--- NOTE | 2019-09-23 05:10 | NUR ---
VITALS STABLE, AFEBRILE. AFIB ON THE MONITOR, REMAINS ON 4L O2 PER NC. PT COMPLAINS OF SHOULDER AND KNEE PAIN. MULTIPLE BOWEL MOVEMENTS, LIQUID WITH SOME FORMED STOOL. DARK YELLOW URINE PER URINAL. OTHERWISE UNEVENTFUL NIGHT. PT REMAINS ON HIS RECLINER PER HIS REQUEST, CALL LIGHT WITHIN REACH.
[2019-09-23 07:30] VITALS: BP 117/75
--- NOTE | 2019-09-23 09:36 | NUR ---
LATE ENTRY FOR 09/21 910, RECEIVED CALL TO CHECK WITH [facility] RE: INS AUTH AND ADMIT. SPOKE WITH [facility], THEIR COMPUTER SYSTEM IS DOWN AND SHE IS UNABLE TO ACCEPT ANY PTS TODAY. AUTH STILL PENDING
--- NOTE | 2019-09-23 10:24 | NUR ---
ASSUMED PT CARE AT 0800, AOX4, UP SBA, O2 ST 90'S 3L NC. TRACING AFIB ON TELE. PT COMPLAINS OF GENERALIZED PAIN. MEDS GIVEN. PT FOR DISCHARGE TO SKILLED. CM ON BOARD. PT/OT. SHORTNESS OF AIR AND HR GOES HIGH WITH ACTIVITY. AM ASSESSMENT CHARTED. HOURLY ROUNDING NOELL CONTINUE TO MONITOR.
--- NOTE | 2019-09-23 10:57 | NUR ---
Pt discharging to [facility] today. Faxed dc orders. Chart copied. Nurse report nummber is [phone]. Updated Pt's DPOA. Facility to corn picker at 2pm.
[2019-09-23] MEDS ORDERED: VANCOCIN 125 M125 M1 PO (11:38)
[2019-09-23] MEDS ORDERED: HUMALOG100 UNIT/1 SUBQ (11:40)
[2019-09-23] MEDS ORDERED: VENTOLIN HFA 1818 GM INH (11:42)
[2019-09-23 11:52] VITALS: BP 106/61
--- NOTE | 2019-09-23 15:14 | NUR ---
DISCHARGE PLAN DISCUSSED WITH PACKET. IV, TELE REMOVED. ALL BELONGINGS PACKED AND CHECKED. REPORT GIVEN TO [facility] NURSE. DISCHARGE PACKET GIVEN TO [facility]. LEFT THE UNIT AT 1440.
== END 2019-09-23 14:40 | DRG 871 ==
LOC: M.ERS 15:58 → M.TBA-ER 17:14 → M.ICU 17:14 → M.2W 09-15 10:07
PROVIDERS: Emergency Medicine; Family Medicine; Internal Medicine; Internal Medicine Pulmonary Disease; Specialist; ADMIT Family Medicine
PROC: 0BH17EZ Insertion of Endotracheal Airway into Trachea, Via Natural or Artificial Opening (ICD-10-PCS; principal; 2019-09-10)
PROC: 5A1945Z Respiratory Ventilation, 24-96 Consecutive Hours (ICD-10-PCS; principal; 2019-09-10)
DX: A41.9 Sepsis, unspecified organism (principal); J69.0 Pneumonitis due to inhalation of food and vomit; N17.0 Acute kidney failure with tubular necrosis; J96.22 Acute and chronic respiratory failure with hypercapnia; E43 Unspecified severe protein-calorie malnutrition; G93.41 Metabolic encephalopathy; I50.31 Acute diastolic (congestive) heart failure; F10.239 Alcohol dependence with withdrawal, unspecified; R44.3 Hallucinations, unspecified; J44.1 Chronic obstructive pulmonary disease with (acute) exacerbation; F10.231 Alcohol dependence with withdrawal delirium; K51.00 Ulcerative (chronic) pancolitis without complications; R29.6 Repeated falls; I48.91 Unspecified atrial fibrillation; D64.9 Anemia, unspecified; I95.9 Hypotension, unspecified; E87.6 Hypokalemia; Y90.9 Presence of alcohol in blood, level not specified; M06.9 Rheumatoid arthritis, unspecified; F17.210 Nicotine dependence, cigarettes, uncomplicated; E66.01 Morbid (severe) obesity due to excess calories; M50.323 Other cervical disc degeneration at C6-C7 level; R65.20 Severe sepsis without septic shock; R31.9 Hematuria, unspecified; M12.842 Other specific arthropathies, not elsewhere classified, left hand; M12.841 Other specific arthropathies, not elsewhere classified, right hand; E83.39 Other disorders of phosphorus metabolism; Z79.899 Other long term (current) drug therapy; Z79.51 Long term (current) use of inhaled steroids; Z91.14 Patient's other noncompliance with medication regimen; Z68.35 Body mass index [BMI] 35.0-35.9, adult

== ENCOUNTER 2019-10-26 18:17 | Inpatient (IN) | payer OTHER ==
[~2019-10-26] VITALS: Ht 180.3 cm; Wt 116.1 kg
[~2019-10-26 18:17] MED LIST: CELEBREX 200 M200 MG PO; CELEXA 10 MG TA10 M1 PO; DILTIAZEM ER180 M2 PO; ELIQUIS5 MG PO; FOLIC ACID1 MG PO; FUROSEMIDE 40 M40 MG PO; HUMALOG100 UNIT/1 SUBQ; KLOR-CON 10 ER10 MEQ PO; LEXAPRO 10 MG T10 M2 PO; NEURONTIN100 MG PO; PROTONIX40 M2 PO; RAYOS5 MG PO; SPIRIVA18 MCG INH; SYMBICORT160 MCG/4. INH; TRAMADOL 50 MG50 MG PO; VANCOCIN 125 M125 M1 PO; VENTOLIN HFA 1818 GM INH; VITAMIN B-121000 MC2 PO; VOLTAREN GEL 1100 G1 TOP
[2019-10-26 18:28] VITALS: BP 137/85
[2019-10-26 19:09] LABS: HEMATOCRIT 35.7 % (42.0-52.0); HEMOGLOBIN 11.9 gm/dL (14.0-18.0); MCHC 33.3 g/dL (28.0-37.0); MCV 93.1 fL (80.0-100.0); MPV 9.6 fl. (7.2-11.1); NUCLEATED RBCS 0 /100WBC; PLATELET COUNT* 292 thou/uL (150-400); RBC 3.83 mil/uL (4.50-6.00); RDW-CV 15.3 % (10.5-14.5); WBC 26.1 thou/uL (4.0-11.0)
[2019-10-26 19:20] LABS: CREATININE 0.8 mg/dL (0.6-1.3)
[2019-10-26 19:24] LABS: ALBUMIN 2.6 g/dL (3.4-5.0); MAGNESIUM 2.2 mg/dL (1.8-2.4); TOTAL BILIRUBIN 0.7 mg/dL (<0.1-1.0); TOTAL PROTEIN 7.1 g/dL (6.4-8.2)
[2019-10-26 19:27] LABS: POTASSIUM 2.3 mmol/L (3.5-5.1)
[2019-10-26 19:34] LABS: BE 10.3 mmol/L (-2 to +3); PO2 87.7 mmHg (75.0-100.0); pH 7.464 (7.340-7.450)
[2019-10-26 19:35] LABS: PCO2 50.8 mmHg (35.0-45.0)
[2019-10-26 19:53] LABS: ABSOLUTE EOSINOPHILS 0.8 thou/uL (0.0-0.7); ABSOLUTE LYMPHOCYTES 4.7 thou/uL (0.8-5.3); ABSOLUTE MONOCYTES 1.3 thou/uL (0.0-1.2); ABSOLUTE NEUTROPHILS 19.3 thou/uL (1.6-8.1)
[2019-10-26 19:54] LABS: ANISOCYTOSIS Occasional; PLATELET ESTIMATE ADEQUATE
[2019-10-26 21:22] VITALS: BP 111/72
[2019-10-26 22:00] VITALS: BP 111/71
[2019-10-26] MEDS ORDERED: ALBUTEROL2.5 MG/31 INH (22:09)
[2019-10-26 23:08] VITALS: BP 107/66
[2019-10-26 23:12] LABS: URINE BILIRUBIN NEGATIVE (Negative); URINE BLOOD 2+ (Negative); URINE CLARITY CLEAR; URINE COLOR YELLOW; URINE GLUCOSE-RANDOM NEGATIVE (Negative); URINE KETONES NEGATIVE (Negative); URINE LEUKOCYTES-REFLEX NEGATIVE (Negative); URINE NITRITE-REFLEX NEGATIVE (Negative); URINE PROTEIN 1+ (Negative); URINE UROBILINOGEN 0.2 E.U./dl (0.2-1.0)
[2019-10-26 23:36] LABS: CASTS None Seen /LPF (None Seen); SQUAMOUS 0-3 Few /LPF (0-3)
[2019-10-26 23:37] LABS: BACTERIA-REFLEX None Seen /HPF (None Seen); CRYSTALS None Seen /LPF (None Seen); URINE RBC 3-10 Few /HPF (0-2); URINE WBC-REFLEX 0-5 Rare /HPF (0-5)
[2019-10-27 04:00] VITALS: BP 112/72
--- NOTE | 2019-10-27 06:59 | NUR ---
RECEIVED REPORT FROM BINDER TECHNICIANEDMUNDO MORLEY AT 2116. PT ARRIVED TO ROOM AT 2140. PT AAOX4. ORIENTED TO ROOM AND CALL LIGHT. AFIB ON JEWELRY MECHANIC. HIGH FALL PRECAUTIONS IN PLACE. DR. SHANNON PAGED FOR HOME MEDS/NEW ORDERS RECEIVED. HOURLY ROUNDING COMPLETED. CALL LIGHT WITHIN REACH. PT CONTINUES ON CARDIDARY CASTILLO.
[2019-10-27 07:00] VITALS: BP 122/76
--- NOTE | 2019-10-27 10:00 | NUR ---
INITAL ASSESSMENT COMPLETED CHARTED. VSS. PT TRACING AFIB ON MONITOR. PT DENIES PAIN. PT REPORTS FEELING "VERY TIRED" AND "HAS NOT SLEPT IN 3 DAYS". PT IS ALERT & ORIENTED AND ABLE TO VOICE ALL NEEDS. HOURLY ROUNDING AND FALL PRECAUTIONS IN PLACE FOR PT SAFETY. CLWR.
[2019-10-27 11:44] VITALS: BP 123/81
[2019-10-27 13:11] LABS: INFLUENZA A ANTIGEN Negative (Negative); INFLUENZA B ANTIGEN Negative (Negative)
[2019-10-27 16:03] VITALS: BP 125/83
[2019-10-27 20:00] VITALS: BP 116/73
[2019-10-28] VITALS (7 sets, daily range): BP systolic 115–126; BP diastolic 68–80
[2019-10-28 04:28] LABS: HEMATOCRIT 33.7 % (42.0-52.0); HEMOGLOBIN 10.9 gm/dL (14.0-18.0); MCH 30.3 pg (26.0-34.0); MCHC 32.2 g/dL (28.0-37.0); MCV 94.1 fL (80.0-100.0); MPV 9.1 fl. (7.2-11.1); RBC 3.58 mil/uL (4.50-6.00); RDW-CV 15.6 % (10.5-14.5); WBC 19.3 thou/uL (4.0-11.0)
[2019-10-28 04:45] LABS: ALBUMIN 2.2 g/dL (3.4-5.0); CALCIUM 8.5 mg/dL (8.5-10.1); CREATININE 0.8 mg/dL (0.6-1.3); MAGNESIUM 2.2 mg/dL (1.8-2.4); POTASSIUM 3.5 mmol/L (3.5-5.1); TOTAL BILIRUBIN 0.3 mg/dL (<0.1-1.0); TOTAL PROTEIN 6.3 g/dL (6.4-8.2)
--- NOTE | 2019-10-28 05:11 | NUR ---
PT HAD C/O PAIN AT START OF SHIFT. REACHED A TOLERABLE PAIN LEVEL WITH PRN PAIN MEDICATION. WAS ABLE TO SLEEP 6 HOURS BEFORE REQUIRING PRN PAIN MEDICATION AGAIN. MAINTAINING O2 SATS >92% ON 2L VIA NC. CURRENTLY ASLEEP WITH BED ALARM ON AND CALL LIGHT WITHIN REACH.
--- NOTE | 2019-10-28 08:21 | NUR ---
INITAL ASSESSMENT COMPLETED CHARTETD. VSS. TRACING AFIB ON MONITOR. PT DENIES PAIN, CP, SOA, N/V/D. REFER TO COMPUTER CHARTING FOR FURTHER DETAILS. HOURLY ROUNDING AND FALL PRECAUTIONS IN PLACE FOR PT SAFETY. CLWR.
--- NOTE | 2019-10-28 09:04 | EKG ---
[place] [address] ELECTROCARDIOGRAM REPORT Name: CAROLYN LOPEZ Room: [address] ADM IN [facility]#: [id number] Admission: 10/26/19 Attend Phys: Nathan Navarro MD Discharge: Date of : 54 Report #: [id number] THIS REPORT FOR: //name// [facility] Test Date: 2019-10-26 Test Time: 19:06:44 Pat Name: CAROLYN LOPEZ Department: Room: [facility] Gender: M Corrugator: [place] : 1950 Requested By: Jenny Koch Order Number: [id number] MD: Emigdio Bazan Measurements Intervals [place] Rate: 98 P: AR: QRS: -1 QRSD: 93 T: 50 QT: 320 QTc: 409 Interpretive Statements Atrial fibrillation septal infarct, age indeterminate Compared to ECG 09/18/2019 17:24:31 no change Electronically Signed On 10-28-2019 9:04:22 CHUCK BONER by Emigdio Bazan [email or web address] <ELECTRONICALLY SIGNED> By: Emigdio Bazan MD, [facility] 10/28/19 0904 05 05 Emigdio Bazan MD, FACC /EPI
[2019-10-28] MEDS ORDERED: FIRVANQ50 MG/1 ML PO (11:52)
[2019-10-28] MEDS ORDERED: FLORASTOR250 MG PO (11:53)
--- NOTE | 2019-10-28 13:25 | NUR ---
CM SPOKE W/PT SON AND CONFIRMED PT IS LIVING IN [facility]. PT SON, HASEEB WILL PROVIDED TRANSPORTATION HOME AT D/C. NOTIFIED HE IS OKAY TO COME AFTER WORK, PT NURSE INFORMED CM PT SHOULD BE READY AFTER 200PM.
--- NOTE | 2019-10-31 11:46 | NUR ---
REFAXED ORDERS TO [facility] [phone]
== END 2019-10-28 16:08 | disposition home health service (06) | DRG 872 ==
LOC: M.ERS 18:17 → M.TBA-ER 20:34 → M.2W 20:34
PROVIDERS: Internal Medicine; Personal Emergency Response Attendant; ADMIT Internal Medicine
DX: A41.89 Other specified sepsis (principal); I50.32 Chronic diastolic (congestive) heart failure; D68.69 Other thrombophilia; I48.20 Chronic atrial fibrillation, unspecified; E87.3 Alkalosis; A08.4 Viral intestinal infection, unspecified; J44.9 Chronic obstructive pulmonary disease, unspecified; M06.9 Rheumatoid arthritis, unspecified; E87.6 Hypokalemia; E66.9 Obesity, unspecified; G89.29 Other chronic pain; Z68.35 Body mass index [BMI] 35.0-35.9, adult; Z79.4 Long term (current) use of insulin; Z79.899 Other long term (current) drug therapy; Z87.891 Personal history of nicotine dependence; Z79.01 Long term (current) use of anticoagulants; Z87.01 Personal history of pneumonia (recurrent)

== ENCOUNTER 2020-06-29 13:34 | Inpatient (IN) | payer OTHER ==
[~2020-06-29] VITALS: Ht 177.8 cm; Wt 131.9 kg
--- NOTE | ~2020-06-29 | CON ---
[address] [address] CONSULTATION Name: CAROLYN LOPEZ Room: [address] IN M.R.#: [id number] Admission: 06/29/20 Attend Phys: Nathan Navarro MD Discharge: Date of : 54 Report #: [id number] THIS REPORT FOR: //name// cc: Physician not on staff Physician not on staff ~ THIS REPORT FOR: //name// CC: Nathan FRANK [facility][NOTE 2] Physician staff DATE OF SERVICE: 06/30/2020 CONSULT REQUESTED BY: Nathan Navarro MD INDICATION FOR CONSULTATION: Shortness of breath. HISTORY OF PRESENT ILLNESS: A 69-year-old gentleman with past medical history includes a history of oxygen dependent COPD. He is not on long-term prednisone. The patient also has a history of obstructive sleep apnea. He is noncompliant with CPAP. The patient is anticoagulated for atrial fibrillation. The patient has now presented with worsening shortness of breath over the last several days. He also reports an increase in cough with clear as well as white sputum production. He says that recently over the last several weeks there has been a significant increase in swelling of lower extremities. He does not have chest pain. He did not report any increase in runny nose or sore throat. He does have disturbed sleep at night as well as sleepiness during the day. These complaints remain at baseline. I asked him 12 questions for review of systems. The patient answered in the negative except as mentioned above. PAST MEDICAL HISTORY: COPD, on oxygen long-term, obstructive sleep apnea, noncompliant with CPAP, atrial fibrillation, on anticoagulation long-term. The patient's baseline creatinine is normal at 0.8. 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 difficile colitis, morbid obesity, alcoholism. SOCIAL HISTORY: He has an extensive history of smoking. He smoked for several decades. He says he has now cut down to half a pack a day history of heavy alcohol intake, discontinued in 2019. He denies taking alcohol recently. No known history of illegal drug use. ALLERGIES: No known drug allergies. FAMILY HISTORY: There [place] [address] CONSULTATION Name: CAROLYN LOPEZ Room: [address]#: [id number] Admission: 06/29/20 Attend Phys: Nathan Navarro MD Discharge: Date of : 54 Report #: [id number] PHYSICAL EXAMINATION: GENERAL: Alert, awake and oriented, does not appear to be in any distress at this time. VITAL SIGNS: Has a pulse of 97 and a blood pressure of 105/78. He is on 2 liters oxygen via nasal cannula. He is saturating 95%. He is afebrile with a temperature of 36.8, body mass index is elevated to 42. HEENT: Head is normocephalic and atraumatic. Pupils are equal and reactive. There is no throat erythema. There is no thrush in his throat. His airway is Mallampati 3. There is fairly narrow. NECK: Does not show raised JVP, asymmetry, mass or lymph nodes. CHEST: Symmetrical expansion on inspection and palpation. On auscultation, breath sounds are bilaterally equal, but decreased. Expirations are prolonged. I do hear expiratory wheezes bilaterally. HEART: Irregular. There is no murmur. ABDOMEN: Mildly distended, nontender. EXTREMITIES: Lower extremities do show 1+ edema. There are significant ulcers, likely venous ulcers in lower extremities as well. There is no calf tenderness. SKIN: Moist. Ulceration as above. NEUROLOGICAL: He moves all extremities bilaterally equally and spontaneously with no focal deficit identified. IMAGING DATA: The patient's chest x-ray from yesterday is reviewed. I do not see any significant increase in pulmonary vascular congestion. There are increased interstitial markings, possibly secondary to chronic changes. There is a radiopaque density at the left lung base, which could be a small area of atelectasis as well as infiltrate or small pleural effusion. ASSESSMENT AND PLAN: 1. Acute respiratory insufficiency in the background the patient has obstructive sleep apnea as well as chronic obstructive pulmonary disease. He does appear to be in pulmonary disease exacerbation at this time. He has also developed fluid overload. The reason why the patient has developed fluid overload needs to be evaluated further. 2. Chronic obstructive pulmonary disease exacerbation. We will continue with Solu-Medrol as currently prescribed. Since his COVID-19 PCR has now come back negative, we will go ahead and start him on nebulized bronchodilators. Note that he is on oxygen long-term. 3. Pulmonary infiltrates. See discussion above. Some of these could be chronic. It is possible he has interstitial lung disease, possibly secondary to rheumatoid arthritis related to interstitial lung disease. We will clarify this point pending a CT chest without contrast. He is currently on ceftriaxone. He has a history of C. diff and therefore I did not broaden antibiotic coverage at this time. However, if significant infiltrates are noted, then I will be inclined to add atypical coverage. 4. Obstructive sleep apnea. For now, we will recommend BiPAP while asleep. He does have a CPAP at home. Recommend compliance. Recommend weight loss. [place] [address] [place] [address] CONSULTATION Name: CAROLYN LOPEZ Room: [address]#: [id number] Admission: 06/29/20 Attend Phys: Nathan Navarro MD Discharge: Date of : 54 Report #: [id number] 5. Fluid overload. Agree with cutting back on Lasix dose, creatinine will need to be monitored closely. 6. Acute renal insufficiency. We will check a bladder scan. We will do a renal ultrasound in case the patient's creatinine continues to rise or significant retention is noted. We will have a low threshold of placing a Stafford. 7. Edema. If the patient is in fact taking Eliquis regularly at home as prescribed then deep venous thrombosis will be unlikely. I will still do venous Doppler to rule out. We will also do a 2D echo. 8. Atrial fibrillation, he is on anticoagulation fdc. 9. Active smoker. 10. Past medical history of alcohol use. 11. Gastroesophageal reflux disease, he is on a proton pump inhibitor. Thanks for this consultation. By: 1900 [id number] Heard MD /nt
[~2020-06-29 13:34] MED LIST changes: +ALBUTEROL2.5 MG/31 INH; +FIRVANQ50 MG/1 ML PO; +FLORASTOR250 MG PO
[2020-06-29 13:44] VITALS: BP 140/83
[2020-06-29 14:12] LABS: ABSOLUTE BASOPHILS 0.1 thou/uL (0.0-0.2); ABSOLUTE LYMPHOCYTES 2.8 thou/uL (0.8-5.3); ABSOLUTE MONOCYTES 1.2 thou/uL (0.0-1.2); ABSOLUTE NEUTROPHILS 10.8 thou/uL (1.6-8.1); EOSINOPHILS 0.3 %; HEMATOCRIT 42.8 % (42.0-52.0); HEMOGLOBIN 14.3 gm/dL (14.0-18.0); LYMPHOCYTES 18.6 %; MCH 31.8 pg (26.0-34.0); MCHC 33.5 g/dL (28.0-37.0); MCV 94.9 fL (80.0-100.0); MONOCYTES 7.9 %; MPV 9.1 fl. (7.2-11.1); NUCLEATED RBCS 0 /100WBC; PLATELET COUNT* 293 thou/uL (150-400); POLYS 72.2 %; RBC 4.51 mil/uL (4.50-6.00); RDW-CV 15.4 % (10.5-14.5)
[2020-06-29 14:25] LABS: CALCIUM 8.9 mg/dL (8.5-10.1); CREATININE 1.3 mg/dL (0.6-1.3); POTASSIUM 4.4 mmol/L (3.5-5.1)
[2020-06-29 14:26] LABS: APTT 27.8 Seconds (25.0-31.3); PROTIME 10.6 Seconds (9.20-11.50)
[2020-06-29 14:36] LABS: ALBUMIN 3.6 g/dL (3.4-5.0); TOTAL BILIRUBIN 0.5 mg/dL (<0.1-1.0); TOTAL PROTEIN 7.9 g/dL (6.4-8.2)
--- NOTE | 2020-06-29 16:05 | EKG ---
[place] [address] ELECTROCARDIOGRAM REPORT Name: CAROLYN LOPEZ Room: [facility]#: [id number] Admission: 06/29/20 Attend Phys: Discharge: Date of : 54 Date of Service: 06/29/20 1405 Report #: [id number] THIS REPORT FOR: //name// [facility] ED Test Date: 2020-06-29 Test Time: 14:05:54 Pat Name: CAROLYN LOPEZ Department: Room: Gender: Industrial Psychologist: [place] : 1950 Requested By: Franchesca Ladd Order Number: [id number] MD: Emigdio Bazan Measurements Intervals [place] Rate: 84 P: AL: QRS: 55 QRSD: 92 T: 42 QT: 389 QTc: 460 Interpretive Statements Atrial fibrillation Borderline low voltage, extremity leads Compared to ECG 10/26/2019 19:06:44 no change Electronically Signed On 06-29-2020 16:05:00 CDT by Emigdio Bazan [email or web address] <ELECTRONICALLY SIGNED> By: Emigdio Bazan MD, [facility] 06/29/20 1605 1405 140 Emigdio Bazan MD, FACC /EPI
[2020-06-29 19:20] VITALS: BP 101/59
[2020-06-30 04:45] VITALS: BP 100/63
[2020-06-30 05:53] LABS: HEMATOCRIT 44.8 % (42.0-52.0); HEMOGLOBIN 14.8 gm/dL (14.0-18.0); MCH 31.4 pg (26.0-34.0); MCV 95.1 fL (80.0-100.0); MPV 9.5 fl. (7.2-11.1); NUCLEATED RBCS 0 /100WBC; PLATELET COUNT* 289 thou/uL (150-400); RBC 4.71 mil/uL (4.50-6.00); RDW-CV 15.5 % (10.5-14.5); WBC 14.5 thou/uL (4.0-11.0)
[2020-06-30 06:05] LABS: CREATININE 1.6 mg/dL (0.6-1.3); POTASSIUM 4.4 mmol/L (3.5-5.1)
[2020-06-30 08:00] VITALS: BP 131/78
[2020-06-30 08:57] LABS: ABSOLUTE LYMPHOCYTES 1.5 thou/uL (0.8-5.3); ABSOLUTE NEUTROPHILS 13.1 thou/uL (1.6-8.1); MYELOCYTES 1 %; PLATELET ESTIMATE ADEQUATE
[2020-06-30 13:15] VITALS: BP 124/76
[2020-06-30 16:00] VITALS: BP 105/78
[2020-06-30 20:00] VITALS: BP 127/72
[2020-07-01] VITALS: BP 126/79
[2020-07-01 04:00] VITALS: BP 127/88
[2020-07-01 05:37] LABS: ABSOLUTE LYMPHOCYTES 1.1 thou/uL (0.8-5.3); ABSOLUTE MONOCYTES 0.6 thou/uL (0.0-1.2); ABSOLUTE NEUTROPHILS 20.2 thou/uL (1.6-8.1); BASOPHILS 0.1 %; MCH 31.7 pg (26.0-34.0); MCHC 33.4 g/dL (28.0-37.0); MCV 94.9 fL (80.0-100.0); MONOCYTES 2.6 %; MPV 9.4 fl. (7.2-11.1); NUCLEATED RBCS 0 /100WBC; PLATELET COUNT* 280 thou/uL (150-400); POLYS 92.3 %; RBC 4.43 mil/uL (4.50-6.00); RDW-CV 15.4 % (10.5-14.5); WBC 21.9 thou/uL (4.0-11.0)
[2020-07-01 06:00] LABS: ALBUMIN 3.4 g/dL (3.4-5.0); CALCIUM 8.6 mg/dL (8.5-10.1); CREATININE 1.1 mg/dL (0.6-1.3); MAGNESIUM 2.8 mg/dL (1.8-2.4); POTASSIUM 4.1 mmol/L (3.5-5.1); TOTAL BILIRUBIN 0.3 mg/dL (<0.1-1.0); TOTAL PROTEIN 7.6 g/dL (6.4-8.2)
[2020-07-01 08:00] VITALS: BP 126/85
[2020-07-01 12:00] VITALS: BP 108/68
--- NOTE | 2020-07-01 15:47 | 2DMMODE ---
[place] [address] 2 D/M-MODE ECHOCARDIOGRAM Name: CAROLYN LOPEZ Room: [address] IN [facility]#: [id number] Admission: 06/29/20 Attend Phys: Nathan Navarro, Discharge: Date of : 54 Date of Service: 07/01/20 1547 Report #: [id number] THIS REPORT FOR: cc: Physician not on staff Physician not on staff Emigdio Bazan MD [facility] ~ APPROVED REPORT Study performed: 07/01/2020 10:18:39 EXAM: Comprehensive 2D, Doppler, and color-flow Echocardiogram Patient Location: In-Patient Room #: [facility] Status: routine BSA: 2.44 HR: 60 bpm BP: 126/85 mmHg Rhythm: Atrial Fibrillation Other Information Study Quality: Good Indications COPD Dyspnea 2D Dimensions LVOT Diam: 21.96 (18-24mm) LVDd: 54.70 mm PWd: 11.77 (7-11mm) Ascending Ao: 38.36 (22-36mm) LVDs: 39.17 (25-40mm) Aortic Root: 42.37 mm Volumes Left Atrial Volume (Systole) LA ESV Index: 42.90 mL/m2 Aortic Valve AoV Peak Eren.: 1.49 m/s AO Peak Gr.: 8.89 mmHg LVOT Max P.14 mmHg AO Mean Gr.: 5.34 mmHg LVOT Mean P.89 mmHg LVOT Max V: 1.24 m/s AO V2 VTI: 25.30 cm LVOT Mean V: 0.78 m/s ANDRIA (VTI): 3.04 cm2 LVOT V1 VTI: 20.32 [place] [address] 2 D/M-MODE ECHOCARDIOGRAM Name: CAROLYN LOPEZ Room: [address] IN [facility].#: [id number] Admission: 06/29/20 Attend Phys: Nathan Navarro, Discharge: Date of : 54 Date of Service: 07/01/20 1547 Report #: [id number] Mitral Valve MV Decel. Time: 125.51 ms MV PHT: 36.40 ms MVA (PHT): 6.04 cm2 TDI Medial E' Eren.: 0.13 m/s Lateral E' Eren.: 0.18 m/s Left Ventricle The left ventricle is normal size. There is normal LV segmental wall motion. Mild concentric left ventricular hypertrophy. Left ventricular systolic function is normal. The left ventricular ejection fraction is within the normal range. LVEF is 60-65%. Right Ventricle The right ventricle is normal size. The right ventricular systolic function is normal. Atria Left atrium is mild to moderately dilated. The right atrium size is normal. Aortic Valve Mild aortic valve sclerosis. No aortic regurgitation is present. There is no aortic valvular stenosis. Mitral Valve The mitral valve is normal in structure. Mild mitral annular calcification. There is no mitral valve regurgitation noted. No evidence of mitral valve stenosis. Tricuspid Valve The tricuspid valve is normal in structure. Unable to assess PA pressure. Trace tricuspid regurgitation. Pulmonic Valve The pulmonary valve is normal in structure. There is no pulmonic valvular regurgitation. Great Vessels Aortic root is mildly dilated. IVC is normal in size and collapses >50% with inspiration[place] [address] 2 D/M-MODE ECHOCARDIOGRAM Name: CAROLYN LOPEZ Room: [address] IN [facility].#: [id number] Admission: 06/29/20 Attend Phys: Nathan Navarro, Discharge: Date of : 54 Date of Service: 07/01/20 154 Report #: [id number] There is no pericardial effusion. <Conclusion> Mild concentric left ventricular hypertrophy. LVEF is 60-65%. Left atrium is mild to moderately dilated. Mild aortic valve sclerosis. <ELECTRONICALLY SIGNED> By: Emigdio Bazan MD, [facility] 07/01/20 1547 1547 1547 Emigdio Bazan MD, FACC /INF
[2020-07-01 16:00] VITALS: BP 112/66
[2020-07-01 20:00] VITALS: BP 119/72
[2020-07-02] VITALS: BP 123/81
[2020-07-02 04:04] VITALS: BP 122/80
[2020-07-02 05:02] LABS: ABSOLUTE BASOPHILS 0.1 thou/uL (0.0-0.2); ABSOLUTE LYMPHOCYTES 1.2 thou/uL (0.8-5.3); ABSOLUTE MONOCYTES 0.9 thou/uL (0.0-1.2); ABSOLUTE NEUTROPHILS 19.6 thou/uL (1.6-8.1); BASOPHILS 0.2 %; HEMATOCRIT 42.5 % (42.0-52.0); HEMOGLOBIN 14.2 gm/dL (14.0-18.0); LYMPHOCYTES 5.7 %; MCH 32.1 pg (26.0-34.0); MCHC 33.5 g/dL (28.0-37.0); MCV 95.9 fL (80.0-100.0); MONOCYTES 3.9 %; MPV 9.8 fl. (7.2-11.1); NUCLEATED RBCS 0 /100WBC; PLATELET COUNT* 264 thou/uL (150-400); POLYS 90.2 %; RBC 4.43 mil/uL (4.50-6.00); RDW-CV 15.4 % (10.5-14.5); WBC 21.8 thou/uL (4.0-11.0)
[2020-07-02 05:24] LABS: CREATININE 1.2 mg/dL (0.6-1.3); POTASSIUM 4.3 mmol/L (3.5-5.1)
[2020-07-02 08:00] VITALS: BP 121/68
[2020-07-02 13:18] VITALS: BP 125/86
[2020-07-02 17:17] VITALS: BP 125/68
[2020-07-02 20:00] VITALS: BP 124/77
[2020-07-02 21:37] LABS: URINE BILIRUBIN NEGATIVE (Negative); URINE BLOOD TRACE (Negative); URINE CLARITY CLEAR; URINE COLOR YELLOW; URINE GLUCOSE-RANDOM NEGATIVE (Negative); URINE KETONES NEGATIVE (Negative); URINE LEUKOCYTES-REFLEX NEGATIVE (Negative); URINE NITRITE-REFLEX NEGATIVE (Negative); URINE PROTEIN NEGATIVE (Negative); URINE UROBILINOGEN 0.2 E.U./dl (0.2-1.0)
[2020-07-03] VITALS: BP 128/80
[2020-07-03 04:00] VITALS: BP 128/78
[2020-07-03 05:28] LABS: ABSOLUTE LYMPHOCYTES 0.8 thou/uL (0.8-5.3); ABSOLUTE MONOCYTES 0.7 thou/uL (0.0-1.2); ABSOLUTE NEUTROPHILS 15.7 thou/uL (1.6-8.1); BASOPHILS 0.2 %; HEMATOCRIT 42.9 % (42.0-52.0); HEMOGLOBIN 14.2 gm/dL (14.0-18.0); LYMPHOCYTES 4.8 %; MCH 31.6 pg (26.0-34.0); MCHC 33.1 g/dL (28.0-37.0); MCV 95.7 fL (80.0-100.0); MONOCYTES 4.1 %; MPV 9.9 fl. (7.2-11.1); NUCLEATED RBCS 0 /100WBC; PLATELET COUNT* 263 thou/uL (150-400); POLYS 90.9 %; RBC 4.49 mil/uL (4.50-6.00); RDW-CV 15.2 % (10.5-14.5); WBC 17.3 thou/uL (4.0-11.0)
[2020-07-03 05:31] LABS: CALCIUM 8.7 mg/dL (8.5-10.1); CREATININE 1.4 mg/dL (0.6-1.3); MAGNESIUM 2.7 mg/dL (1.8-2.4)
[2020-07-03 08:00] VITALS: BP 144/75
[2020-07-03] MEDS ORDERED: PREDNISONE 10 M10 MG PO (09:01)
[2020-07-03] MEDS ORDERED: AUGMENTIN 875-1 EACH PO (09:02)
[2020-07-03 13:58] VITALS: BP 141/83
[2020-07-03 15:15] VITALS: BP 141/83
[2020-07-03 15:26] VITALS: BP 141/83
== END 2020-07-03 16:30 | disposition home or self-care (01) | DRG 177 ==
LOC: M.ERS 13:34 → M.TBA-ER 15:49 → M.2W 15:49
PROVIDERS: Internal Medicine Critical Care Medicine; Nurse Practitioner Family; ADMIT Internal Medicine; ATTEND Internal Medicine
PROC: 5A09357 Assistance with Respiratory Ventilation, Less than 24 Consecutive Hours, Continuous Positive Airway Pressure (ICD-10-PCS; principal; 2020-07-01)
PROC: 5A09357 Assistance with Respiratory Ventilation, Less than 24 Consecutive Hours, Continuous Positive Airway Pressure (ICD-10-PCS; 2020-07-03)
DX: J15.6 Pneumonia due to other Gram-negative bacteria (principal); J96.20 Acute and chronic respiratory failure, unspecified whether with hypoxia or hypercapnia; I50.33 Acute on chronic diastolic (congestive) heart failure; J44.1 Chronic obstructive pulmonary disease with (acute) exacerbation; Z68.41 Body mass index [BMI] 40.0-44.9, adult; J44.0 Chronic obstructive pulmonary disease with (acute) lower respiratory infection; M06.9 Rheumatoid arthritis, unspecified; G47.33 Obstructive sleep apnea (adult) (pediatric); E66.01 Morbid (severe) obesity due to excess calories; K21.9 Gastro-esophageal reflux disease without esophagitis; F17.200 Nicotine dependence, unspecified, uncomplicated; N28.9 Disorder of kidney and ureter, unspecified; Z20.828 Contact with and (suspected) exposure to other viral communicable diseases; S81.801A Unspecified open wound, right lower leg, initial encounter; X58.XXXA Exposure to other specified factors, initial encounter; I48.91 Unspecified atrial fibrillation; Z87.01 Personal history of pneumonia (recurrent); Z79.899 Other long term (current) drug therapy; Z79.01 Long term (current) use of anticoagulants; Z79.51 Long term (current) use of inhaled steroids; Y93.89 Activity, other specified; Y92.89 Other specified places as the place of occurrence of the external cause; Y99.8 Other external cause status

== ENCOUNTER → 2020-08-07 | Outpatient (CLI) | payer OTHER ==
[~2020-08-07] MED LIST changes: +AUGMENTIN 875-1 EACH PO; +PREDNISONE 10 M10 MG PO
[2020-08-07 12:35] LABS: CALCIUM 9.1 mg/dL (8.5-10.1); CREATININE 1.3 mg/dL (0.6-1.3); POTASSIUM 4.9 mmol/L (3.5-5.1)
== END ==
LOC: M.LAB 11:55
PROVIDERS: ATTEND Nurse Practitioner
DX: I50.32 Chronic diastolic (congestive) heart failure (principal)

== ENCOUNTER 2021-01-06 09:49 | Inpatient (IN) | payer OTHER ==
[~2021-01-06] VITALS: Ht 177.8 cm; Wt 139.7 kg
[2021-01-06 09:59] VITALS: BP 142/72
[2021-01-06 10:26] LABS: HEMATOCRIT 45.7 % (42.0-52.0); HEMOGLOBIN 14.8 gm/dL (14.0-18.0); MCHC 32.3 g/dL (28.0-37.0); MCV 92.8 fL (80.0-100.0); MPV 8.8 fl. (7.2-11.1); NUCLEATED RBCS 0 /100WBC; PLATELET COUNT* 258 thou/uL (150-400); RBC 4.93 mil/uL (4.50-6.00); RDW-CV 16.3 % (10.5-14.5); WBC 14.7 thou/uL (4.0-11.0)
[2021-01-06 10:35] LABS: CREATININE 1.2 mg/dL (0.6-1.3); POTASSIUM 3.6 mmol/L (3.5-5.1)
[2021-01-06 10:46] LABS: ALBUMIN 3.5 g/dL (3.4-5.0); TOTAL BILIRUBIN 0.5 mg/dL (<0.1-1.0); TOTAL PROTEIN 7.5 g/dL (6.4-8.2)
[2021-01-06 10:53] LABS: ABSOLUTE EOSINOPHILS 0.3 thou/uL (0.0-0.7); ABSOLUTE LYMPHOCYTES 3.1 thou/uL (0.8-5.3); ABSOLUTE MONOCYTES 0.4 thou/uL (0.0-1.2); ABSOLUTE NEUTROPHILS 10.9 thou/uL (1.6-8.1); ATYPICAL LYMPHS 2 %
[2021-01-06 10:54] LABS: LARGE PLATELETS OCCASIONAL; PLATELET ESTIMATE ADEQUATE
[2021-01-06 13:05] VITALS: BP 131/60
[2021-01-06 13:10] VITALS: BP 133/80
[2021-01-06] MEDS ORDERED: CELEBREX100 MG/1 C PO (13:25)
[2021-01-06] MEDS ORDERED: FUROSEMIDE 20 M20 MG PO (13:25)
[2021-01-06 14:00] VITALS: BP 163/88
--- NOTE | 2021-01-06 14:17 | CON ---
[address] [address] CONSULTATION Name: JESSICACAROLYN Arlin Room: [address] IN M.R.#: [id number] Admission: 01/06/21 Attend Phys: Debra Quezada Discharge: Date of : 54 Report #: [id number] THIS REPORT FOR: cc: Physician not on staff Physician not on staff ~ Emigdio Bazan MD [facility] DATE OF SERVICE: 01/06/2021 CARDIOLOGY CONSULTATION HISTORY OF PRESENT ILLNESS: The patient is a 70-year-old single white male who I was asked to see in the Emergency Room today after he complained of being short of breath. The patient has extensive and complicated past medical history. He has a history of AFib and was cardioverted in the past by Dr. Tran, but developed permanent atrial fibrillation and has been anticoagulated with Eliquis. He has a history of COPD, is on chronic oxygen. Recently, he has had increasing shortness of breath, cough and swelling in feet and lightheadedness. He does have occasional chest pain that was nonexertional. He denied palpitations, syncope or bleeding. He finally came to the hospital and was admitted for further evaluation and treatment. PAST MEDICAL HISTORY: Significant for carpal tunnel surgery, thoracotomy for bloody effusion following a fall. He has a history of COPD. No history of hypertension, diabetes. MEDICATIONS: Include diltiazem, Eliquis, Lasix, nebulizers. ALLERGIES: He has no known drug allergies. FAMILY HISTORY: Positive for heart disease. SOCIAL HISTORY: He is , lives by himself in [place], [place]. Smokes half pack of cigarettes a day. No alcohol abuse. 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 REVIEW OF SYSTEMS: He has no history of stroke. He has sleep apnea. No history of liver disease, kidney disease or cancer. PHYSICAL EXAMINATION: GENERAL: Revealed an elderly male. VITAL SIGNS: Blood pressure 130/70, pulse is 90 and irregular. He is afebrile. HEENT: Mucous membranes are moist. NECK: Supple. CHEST: [place] [address] CONSULTATION Name: JESSICACAROLYN Room: [address]#: [id number] Admission: 01/06/21 Attend Phys: Debra Quezada Discharge: Date of : 54 Report #: [id number] CARDIOVASCULAR: Irregular, tachycardia. ABDOMEN: Obese. EXTREMITIES: Had 1+ pitting edema. IMAGING STUDIES: ECG showed atrial fibrillation with an incomplete right bundle branch block. Chest x-ray: Cardiomegaly, clear lung eckert. LABORATORY DATA: Sodium 140, creatinine 1.2. Liver function studies were normal. BNP 341. White blood cell count 14.7, hemoglobin 14.8. COVID-19 antigen stat test was negative. IMPRESSION AND RECOMMENDATIONS: 1. Chronic obstructive pulmonary disease. 2. Permanent atrial fibrillation. Rate controlled with calcium nomi. I would continue chronic anticoagulation with Eliquis. 3. Tobacco abuse. 4. Obesity. 5. Sleep apnea. <ELECTRONICALLY SIGNED> By: Emigdio Bazan MD, FACC 01/06/21 1417 1241 [id number] Bazan MD, FACC /nt
--- NOTE | 2021-01-06 14:53 | EKG ---
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: EZIO : 1950 Requested By: Adama Medeiros Order Number: [id number] MD: Emigdio Bazan Measurements Intervals [place] Rate: 116 P: NE: QRS: 32 QRSD: 88 T: 86 QT: 366 QTc: 509 Interpretive Statements Atrial fibrillation Ventricular premature complex septal q waves Baseline wander in lead(s) II,III,aVR,aVL,aVF Compared to ECG 06/29/2020 14:05:54 Ventricular premature complex(es) now present Electronically Signed On 01-06-2021 14:53:47 BLADE GRADER OPERATOR by Emigdio Bazan [email or web address] <ELECTRONICALLY SIGNED> By: Emigdio Bazan MD, [facility] 01/06/21 1453 1001 1001 Emigdio Bazan MD, [facility] /EPI
[2021-01-06 20:50] VITALS: BP 145/92
[2021-01-07] VITALS (7 sets, daily range): BP systolic 139–151; BP diastolic 83–96
[2021-01-07 04:34] LABS: ABSOLUTE LYMPHOCYTES 0.9 thou/uL (0.8-5.3); ABSOLUTE MONOCYTES 0.2 thou/uL (0.0-1.2); ABSOLUTE NEUTROPHILS 12.6 thou/uL (1.6-8.1); BASOPHILS 0.2 %; HEMATOCRIT 43.6 % (42.0-52.0); HEMOGLOBIN 13.8 gm/dL (14.0-18.0); LYMPHOCYTES 6.8 %; MCH 29.7 pg (26.0-34.0); MCHC 31.7 g/dL (28.0-37.0); MCV 93.5 fL (80.0-100.0); MONOCYTES 1.1 %; NUCLEATED RBCS 0 /100WBC; PLATELET COUNT* 234 thou/uL (150-400); POLYS 91.9 %; RBC 4.66 mil/uL (4.50-6.00); RDW-CV 16.7 % (10.5-14.5); WBC 13.7 thou/uL (4.0-11.0)
[2021-01-07 05:03] LABS: ALBUMIN 3.2 g/dL (3.4-5.0); CALCIUM 9.2 mg/dL (8.5-10.1); TOTAL BILIRUBIN 0.4 mg/dL (<0.1-1.0); TOTAL PROTEIN 7.2 g/dL (6.4-8.2)
[2021-01-07 05:06] LABS: POTASSIUM 4.8 mmol/L (3.5-5.1)
[2021-01-08 00:20] VITALS: BP 138/80
[2021-01-08 04:00] VITALS: BP 160/105
[2021-01-08 04:41] LABS: ABSOLUTE LYMPHOCYTES 0.8 thou/uL (0.8-5.3); ABSOLUTE MONOCYTES 0.8 thou/uL (0.0-1.2); ABSOLUTE NEUTROPHILS 19.5 thou/uL (1.6-8.1); HEMATOCRIT 42.7 % (42.0-52.0); HEMOGLOBIN 13.5 gm/dL (14.0-18.0); LYMPHOCYTES 3.8 %; MCH 29.7 pg (26.0-34.0); MCHC 31.7 g/dL (28.0-37.0); MCV 93.7 fL (80.0-100.0); MONOCYTES 3.7 %; MPV 9.2 fl. (7.2-11.1); NUCLEATED RBCS 0 /100WBC; PLATELET COUNT* 245 thou/uL (150-400); POLYS 92.5 %; RBC 4.56 mil/uL (4.50-6.00); RDW-CV 16.2 % (10.5-14.5); WBC 21.1 thou/uL (4.0-11.0)
[2021-01-08 05:01] LABS: ALBUMIN 3.3 g/dL (3.4-5.0); CALCIUM 8.7 mg/dL (8.5-10.1); CREATININE 1.1 mg/dL (0.6-1.3); MAGNESIUM 2.5 mg/dL (1.8-2.4); POTASSIUM 4.3 mmol/L (3.5-5.1); TOTAL BILIRUBIN 0.3 mg/dL (<0.1-1.0)
[2021-01-08 09:00] VITALS: BP 151/94
[2021-01-08 11:42] VITALS: BP 148/87
--- NOTE | 2021-01-08 12:10 | CON ---
[address] [address] CONSULTATION Name: JESSICACAROLYN Arlin Room: [address] IN .R.#: [id number] Admission: 01/06/21 Attend Phys: Debra Quezada Discharge: Date of : 54 Report #: [id number] THIS REPORT FOR: cc: Physician not on staff Physician not on staff ~ Jevon Heard MD DATE OF SERVICE: 01/07/2021 REQUESTING PHYSICIAN: Dr. Mccarty. INDICATION FOR CONSULTATION: Shortness of breath. HISTORY OF PRESENT ILLNESS: This is a 70-year-old gentleman, past medical history is as mentioned below. The patient does have a history of oxygen dependent COPD. He also has a history of significant obstructive sleep apnea; however, he has been noncompliant with CPAP or BiPAP therapy. I have previously seen him in another admission last year. The last known is that the patient is an active smoker. He has atrial fibrillation as well and he is on long-term anticoagulation. The patient now states that he was admitted yesterday with increasing shortness of breath. He has been audibly wheezing. He has had a cough. There is not much sputum production. He does not have chest pain. There is considerable increase in his swelling of lower extremities. He also reports recent weight gain of about 30 pounds. The patient at this time is not complaining of fever or chills. He does not have upper respiratory complaints. He does report having had significant disturbed sleep at night as well as sleepiness during the day and these complaints are at baseline. He does report having had palpitations. He does have some orthopnea as well. REVIEW OF SYSTEMS: The patient's review of systems for 12 points is negative except as mentioned above. PAST MEDICAL HISTORY: On oxygen long-term, obstructive sleep apnea. He has been noncompliant with CPAP or BiPAP at home, atrial fibrillation, on long-term anticoagulation therapy, acute renal failure last year; however, his baseline creatinine is 0.8. Rheumatoid arthritis, previously has had seizures secondary to alcohol withdrawal, C. difficile colitis, morbid obesity, alcoholism. Multiple falls. He has just had an echocardiogram performed, which shows a left ventricular ejection fraction of 60% to 65% without significant elevation of right heart pressures. Gastroesophageal reflux disease. SOCIAL HISTORY: Has an extensive history of smoking for several decades. He still is continuing to smoke up to a pack a day. [place] [address] CONSULTATION Name: CAROLYN LOPEZ Room: [address]#: [id number] Admission: 01/06/21 Attend Phys: Debra Quezada Discharge: Date of : 54 Report #: [id number] recently cut down to half a pack a day. Also, history of heavy alcohol in the past, reported to have not had alcohol since 2018. No known history of illegal drug use. CURRENT MEDICATIONS: List in [facility] reviewed. [facility] MEDICATIONS[facility]. Note that he is on anticoagulation. ALLERGIES: No known drug allergies. FAMILY HISTORY: Heart disease. PHYSICAL EXAMINATION: GENERAL: He is alert, awake and oriented. VITAL SIGNS: He has a pulse of 100 and blood pressure 147/90, saturating 95%. He is on 2 liters nasal cannula. His respiratory rate is 18. He is afebrile with a temperature of 36.3. His body mass index is elevated to 36. HEENT: Head is normocephalic and atraumatic. Pupils are equal. There is no throat erythema. His airway is Mallampati 3, close to being class 4. NECK: Does not show raised JVP, asymmetry, mass or lymph nodes. CHEST: Symmetrical expansion on inspection and palpation. On auscultation, there are inspiratory as well as expiratory wheezes noted, wheezes are more over the central airways, they are more expiratory. HEART: Irregular. There is mild tachycardia. ABDOMEN: Mildly distended, nontender. EXTREMITIES: Lower extremities do show 3+ edema bilaterally with no calf tenderness. SKIN: Dry and intact. NEUROLOGICAL: Moves all extremities bilaterally equally and spontaneously with no focal deficit identified. LABORATORY DATA: The patient's chest x-ray shows chronic changes. I do not see any new abnormalities. There is some cardiomegaly. Venous Dopplers are negative. The patient's lab work is in [facility] and is reviewed. COVID-19 antigen is negative. PCR is pending. ASSESSMENT AND PLAN: 1. Rvpwf-pi-mudwzcr hypoxemic respiratory failure. The patient is actively bronchospastic. Also, is fluid overloaded. These appear to be the etiologies of his decompensation. So far, there is no obvious evidence of infection. 2. Chronic obstructive pulmonary disease exacerbation. We will continue with Solu-Medrol as already ordered by the primary service. He likely will need more steroid once the current order runs out. Also, he is actively bronchospastic, [place] [address] CONSULTATION Name: CAROLYN LOPEZ Room: [address] IN [facility].#: [id number] Admission: 01/06/21 Attend Phys: Debra Quezada Discharge: Date of : 54 Report #: [id number] so I do feel that he needs to be on nebulized bronchodilators and I will therefore recommend that he be moved over to a negative pressure room where he can get these until COVID-19 is ruled out. 3. Fluid overload, suspect that there is a component of congestive heart failure secondary to atrial fibrillation as well as diastolic dysfunction. Regardless, he does need to be diuresed. The patient is on Lasix ordered by the Cardiology Service, would watch his creatinine as well as electrolytes closely. 4. Acute bronchitis. I would continue with ceftriaxone. He does have a history of C. difficile colitis in no obvious sign of atypical infection; therefore, I discontinued azithromycin for now. We will reassess tomorrow with a chest x-ray if indicated can certainly be reordered. He did receive a dose today. COVID-19 PCR is pending. 5. Gastroesophageal reflux disease. I feel that this is also contributing to his bronchospasm. While he is on high dose steroids, I will therefore give him Protonix b.i.d. 6. Obstructive sleep apnea. He will clearly benefit from a BiPAP while asleep. He has been noncompliant with a CPAP at home. I discussed with the patient. The patient declined. 7. Atrial fibrillation. Cardiology service on the case and noted to be on Eliquis. Thanks for this consultation. <ELECTRONICALLY SIGNED> By: Jevon Heard MD 01/08/21 1210 1537 1942AMD corey Tolentino
[2021-01-08 16:00] VITALS: BP 142/88
[2021-01-08 20:00] VITALS: BP 130/81
[2021-01-09] VITALS: BP 153/92
[2021-01-09 04:00] VITALS: BP 136/91
[2021-01-09 04:51] LABS: CALCIUM 8.8 mg/dL (8.5-10.1); MAGNESIUM 2.7 mg/dL (1.8-2.4); POTASSIUM 4.2 mmol/L (3.5-5.1)
[2021-01-09 05:09] LABS: ABSOLUTE LYMPHOCYTES 0.6 thou/uL (0.8-5.3); ABSOLUTE MONOCYTES 0.5 thou/uL (0.0-1.2); ABSOLUTE NEUTROPHILS 17.4 thou/uL (1.6-8.1); HEMATOCRIT 43.7 % (42.0-52.0); HEMOGLOBIN 13.7 gm/dL (14.0-18.0); LYMPHOCYTES 3.4 %; MCH 29.5 pg (26.0-34.0); MCHC 31.4 g/dL (28.0-37.0); MCV 93.8 fL (80.0-100.0); MONOCYTES 2.7 %; MPV 9.2 fl. (7.2-11.1); NUCLEATED RBCS 0 /100WBC; PLATELET COUNT* 234 thou/uL (150-400); POLYS 93.9 %; RBC 4.66 mil/uL (4.50-6.00); RDW-CV 16.4 % (10.5-14.5); WBC 18.6 thou/uL (4.0-11.0)
[2021-01-09 08:00] VITALS: BP 123/78
[2021-01-09] MEDS ORDERED: CEFDINIR300 MG PO (08:02)
[2021-01-09] MEDS ORDERED: FUROSEMIDE 40 M40 MG PO (08:02)
[2021-01-09] MEDS ORDERED: PROTONIX40 M2 PO (08:02)
[2021-01-09] MEDS ORDERED: KLOR-CON 10 ER10 MEQ PO (08:02)
[2021-01-09] MEDS ORDERED: PREDNISONE 10 M10 MG PO (08:02)
[2021-01-09 11:58] VITALS: BP 123/78
[2021-01-09 12:09] VITALS: BP 128/85
== END 2021-01-09 14:10 | disposition home or self-care (01) | DRG 291 ==
LOC: M.ERS 09:49 → M.2W 11:26 → M.TBA-ER 11:26 → M.2W 13:09
PROVIDERS: Internal Medicine; Physician Assistant; ADMIT Internal Medicine; ATTEND Internal Medicine
DX: I50.33 Acute on chronic diastolic (congestive) heart failure (principal); J96.21 Acute and chronic respiratory failure with hypoxia; R65.11 Systemic inflammatory response syndrome (SIRS) of non-infectious origin with acute organ dysfunction; J44.1 Chronic obstructive pulmonary disease with (acute) exacerbation; I48.21 Permanent atrial fibrillation; Z68.41 Body mass index [BMI] 40.0-44.9, adult; I48.92 Unspecified atrial flutter; J44.0 Chronic obstructive pulmonary disease with (acute) lower respiratory infection; F10.10 Alcohol abuse, uncomplicated; M06.9 Rheumatoid arthritis, unspecified; D72.829 Elevated white blood cell count, unspecified; R73.9 Hyperglycemia, unspecified; E66.01 Morbid (severe) obesity due to excess calories; F17.210 Nicotine dependence, cigarettes, uncomplicated; J20.9 Acute bronchitis, unspecified; G47.33 Obstructive sleep apnea (adult) (pediatric); K21.9 Gastro-esophageal reflux disease without esophagitis; Z20.822 Contact with and (suspected) exposure to COVID-19; Z79.899 Other long term (current) drug therapy; Z91.19 Patient's noncompliance with other medical treatment and regimen; Z87.01 Personal history of pneumonia (recurrent); Z79.01 Long term (current) use of anticoagulants; Z23 Encounter for immunization

== ENCOUNTER 2021-04-15 06:24 | Inpatient (IN) | payer OTHER ==
[~2021-04-15] VITALS: Ht 177.8 cm; Wt 136.1 kg
--- NOTE | ~2021-04-15 | EMS ---
[place] [address] EMS Patient Care Report Name: CAROLYN LOPEZ Room: [address] IN [facility]#: [id number] Admission: 04/15/21 Attend Phys: Debra Quezada Discharge: Date of : 54 Report #: [id number] THIS REPORT FOR: //name// Report Transmitted: 04/15/2021 21:19 EMS Care Summary [facility] Incident [id number] @ 04/15/2021 05:19 Incident Location [address] [facility] B-10 Patient CAROLYN LOPEZ Male, 70 Years 1950 Patient Address [address] [place] [address] [address] [place] [address] Patient History Chronic Obstructive Pulmonary Disease (COPD),Rheumatoid Arthritis,Atrial Fibrillation, Patient Allergies No known allergies, Patient Medications Prednisone, Pantoprazole, Gabapentin, Furosemide, Loratadine, Chief Complaint Leg sores Disposition Transported No Lights/Sebastian Dispatch Reason Breathing Problem Transported To [facility] Narrative Dispatch: [facility] was dispatched for a male patient experiencing shortness of breath. Med 2 copied tones and [place] [address] EMS Patient Care Report Name: CAROLYN LOPEZ Room: [address] IN [facility]#: [id number] Admission: 04/15/21 Attend Phys: Debra Quezada Discharge: Date of : 54 Report #: [id number] Chief Complaint: Med 1 arrived on scene to find the patient sitting upright in his chair. Patient is alert and does not appear to be in any distress or discomfort. Patient states he has sores on his legs that are causing discomfort. History of present illness/TAMIE: Patient states the sores on his legs began approx. 2 months prior to EMS arrival. Patient states he has seen his PCP with "no relief." Patient rates his pain a 3/10.Patient has an approx. 5 inch sore located on the outer side of his right calf. Patient has an approx. 5 inch sore located on the inner side of his left calf. Edema noted on Bilateral legs distal to knee. Erythema noted on bilateral legs distal to knee. Assessment: Airway: Clear, patent, and self maintained. Breathing: Clear, and equal bilaterally. Non labored. Circulation: Skin is pink, warm, and dry. Strong radial pulses. Disability: A&OX4, GCS 15. Exposures: No life threats were found. See "assesments" tab for further. Reason for ambulance: Patient experiencing discomfort in his lower legs, requesting EMS treatment and transport to [place]. Treatments: ALS assessment. 20G IV LAC. 4 liters O2 ETCO2 showing non obstructed waveforms. 5 lead EKG showing sinus tachycardia. Bandaging to bilateral calf's. Vitals monitored throughout transport. Summary: With the assistance of EMS, the patient was placed onto the cot, secured in place, and placed into the ambulance for transport. The patient was placed onto the monitor and an IV was established. The wounds were bandaged with a trauma bandage. Med 1 went en route non emergent to [place]. The patient's overall condition remained unchanged throughout transport. Radio report was given with no further questions or orders received. Med 1 arrived at destination and the patient was taken to room 8 in the ED where he was able to self ambulate onto the bed. Report was given and signatures and paperwork were received. Med 1 returned back in service. Initial Vitals @06:16P: 117,R: 20,BP: 150/94,SpO2: 98, @06:22P: 114,R: 18,BP: 149/91,SpO2: 99, @05:46P: 77,R: 18,BP: 138/85,Pain: 0/10,GCS: 15,SpO2: 96,Revised Trauma: 12, @06:00P: 112,R: 20,BP: 147/95,GCS: 15,SpO2: 98,Revised Trauma: 12, [place] [address] EMS Patient Care Report Name: CAROLYN LOPEZ Room: [address] ADM IN M.R.#: [id number] Admission: 04/15/21 Attend Phys: Debra Quezada Discharge: Date of : 54 Report #: [id number] @05:28MENTAL:Person Oriented,Time Oriented,Place Oriented,Event Oriented,SKIN:HEENT:LUNG SOUNDS:ABDOMEN:PELVIS//GI:EXTREMITIES:Left Leg: Edema,Left Leg: Other,Right Leg: Other,Right Leg: Edema,Capillary Refill: Right Upper: < 2 Sec,PULSE:Radial: 2+ Normal,NEURO:@05:59MENTAL:Person Oriented,Place Oriented,Time Oriented,Event Oriented,SKIN:HEENT:LUNG SOUNDS:ABDOMEN:PELVIS//GI:EXTREMITIES:Right Leg: Edema,Right Leg: Other,Left Leg: Edema,Left Leg: Other,Capillary Refill: Right Upper: < 2 Sec,PULSE:Radial: 2+ Normal,NEURO: Impression Extremity Pain Procedures @05:28ALS AssessmentResponse: UnchangedSucceeded@05:45BandagingResponse: UnchangedSucceeded@05:45BandagingResponse: UnchangedSucceeded@05:46Saline Lock 0cc (20 ga) Site: Antecubital-LeftResponse: UnchangedSucceeded@05:30Oxygen FlowRate: 4 Device: CO2 Nasal Cannula Response: UnchangedSucceeded Timeline 05:18,Call Received 05:19,Dispatched 05:23,En Route 05:26,On Scene 05:27,At Patient 05:28,ALS Assessment,Response: UnchangedSucceeded, 05:30,Oxygen FlowRate: 4 Device: CO2 Nasal Cannula Response: UnchangedSucceeded, 05:45,Bandaging,Response: UnchangedSucceeded, 05:45,Bandaging,Response: UnchangedSucceeded, 05:46,Saline Lock 0cc 20 ga Site: Antecubital-Left,Response: UnchangedSucceeded, 05:46,BP: 138/85 M,PULSE: 77,RR: 18 R,SPO2: 96 Ox,ETCO2: ,BG: ,PAIN: 0,GCS: 15, 05:46,Depart Scene 06:00,BP: 147/95 M,PULSE: 112,RR: 20 R,SPO2: 98 Ox,ETCO2: ,BG: ,PAIN: ,GCS: 15, 06:16,BP: 150/94 M,PULSE: 117,RR: 20 R,SPO2: 98 Ox,ETCO2: ,BG: ,PAIN: ,GCS: , 06:22,BP: 149/91 M,PULSE: 114,RR: 18 R,SPO2: 99 Ox,ETCO2: ,BG: ,PAIN: ,GCS: , 06:22,At Destination 07:01,Call Closed Disclaimer v1.1 Copyright 2020 [employer] This EMS Care Summary contains data elements from the applicable legal record (which may be displayed differently). It is designed to provide pertinent information for the following purposes: continuity of care, clinical quality, and state data reporting. The complete legal record is available to ED staff and administrators of the receiving hospital in [employer]'s Patient Tracker. All data is provided "as is."
[~2021-04-15 06:24] MED LIST changes: +CEFDINIR300 MG PO; +CELEBREX100 MG/1 C PO; +FUROSEMIDE 20 M20 MG PO
[2021-04-15 06:31] VITALS: BP 114/74
[2021-04-15 07:15] LABS: HEMOGLOBIN 12.4 gm/dL (14.0-18.0); MCH 31.6 pg (26.0-34.0); MCHC 33.5 g/dL (28.0-37.0); MCV 94.4 fL (80.0-100.0); MPV 9.5 fl. (7.2-11.1); NUCLEATED RBCS 0 /100WBC; PLATELET COUNT* 214 thou/uL (150-400); RBC 3.92 mil/uL (4.50-6.00); RDW-CV 15.4 % (10.5-14.5); WBC 22.4 thou/uL (4.0-11.0)
[2021-04-15 07:25] LABS: CREATININE 1.8 mg/dL (0.6-1.3)
[2021-04-15 07:29] LABS: ALBUMIN 2.9 g/dL (3.4-5.0); MAGNESIUM 2.1 mg/dL (1.8-2.4); TOTAL BILIRUBIN 0.8 mg/dL (<0.1-1.0); TOTAL PROTEIN 7.5 g/dL (6.4-8.2)
[2021-04-15 07:31] LABS: POTASSIUM 2.6 mmol/L (3.5-5.1)
[2021-04-15 08:23] LABS: ABSOLUTE LYMPHOCYTES 2.2 thou/uL (0.8-5.3); ABSOLUTE MONOCYTES 1.6 thou/uL (0.0-1.2); ABSOLUTE NEUTROPHILS 18.6 thou/uL (1.6-8.1); PLATELET ESTIMATE ADEQUATE
--- NOTE | 2021-04-15 08:41 | EKG ---
[place] [address] ELECTROCARDIOGRAM REPORT Name: CAROLYN LOPEZ Room: [place] [address] ADM IN [facility]#: [id number] Admission: 04/15/21 Attend Phys: Wang Mccarty Discharge: Date of : 54 Date of Service: 04/15/21 0642 Report #: [id number] THIS REPORT FOR: //name// [facility] ED Test Date: 2021-04-15 Test Time: 06:42:05 Pat Name: CAROLYN TORRESRADHA Department: Room: [facility] Gender: M Processing Associate: : 1950 Requested By: Jolene Hernandez Order Number: [id number] MD: Hari Tran Measurements Intervals [place] Rate: 98 P: [place]: QRS: 19 QRSD: 107 T: 75 QT: 402 QTc: 514 Interpretive Statements Atrial fibrillation Prolonged QT interval Compared to ECG 01/06/2021 10:01:38 Prolonged QT interval now present Ventricular premature complex(es) no longer present Q waves no longer present Electronically Signed On 04-15-2021 8:41:43 CDT by Hari Tran [email or web address] <ELECTRONICALLY SIGNED> By: Hari Tran MD, FAC 04/15/21 0841 Hari Tran MD, [facility] /EPI
[2021-04-15 09:10] VITALS: BP 110/64
[2021-04-15 12:07] VITALS: BP 126/79
[2021-04-15 16:25] VITALS: BP 119/65
[2021-04-15 20:00] VITALS: BP 174/104
[2021-04-15 22:28] LABS: ALBUMIN 2.9 g/dL (3.4-5.0); CALCIUM 9.3 mg/dL (8.5-10.1); CREATININE 1.7 mg/dL (0.6-1.3); POTASSIUM 3.4 mmol/L (3.5-5.1); TOTAL BILIRUBIN 0.5 mg/dL (<0.1-1.0); TOTAL PROTEIN 7.5 g/dL (6.4-8.2)
[2021-04-16 00:38] VITALS: BP 103/63
[2021-04-16 04:14] VITALS: BP 117/71
[2021-04-16 04:48] LABS: HEMATOCRIT 36.4 % (42.0-52.0); HEMOGLOBIN 12.2 gm/dL (14.0-18.0); MCH 31.9 pg (26.0-34.0); MCHC 33.5 g/dL (28.0-37.0); MCV 95.4 fL (80.0-100.0); MPV 9.8 fl. (7.2-11.1); RBC 3.82 mil/uL (4.50-6.00); RDW-CV 15.4 % (10.5-14.5); WBC 15.9 thou/uL (4.0-11.0)
[2021-04-16 04:52] LABS: CALCIUM 9.2 mg/dL (8.5-10.1); CREATININE 1.6 mg/dL (0.6-1.3); POTASSIUM 3.1 mmol/L (3.5-5.1)
[2021-04-16 12:00] VITALS: BP 94/51
[2021-04-16 16:00] VITALS: BP 112/65
[2021-04-16 19:45] VITALS: BP 120/50
[2021-04-17 00:03] VITALS: BP 91/64
[2021-04-17 03:45] VITALS: BP 106/67
[2021-04-17 04:25] LABS: HEMOGLOBIN 11.9 gm/dL (14.0-18.0); MCH 31.5 pg (26.0-34.0); MCV 95.5 fL (80.0-100.0); MPV 10.1 fl. (7.2-11.1); RBC 3.78 mil/uL (4.50-6.00); RDW-CV 15.4 % (10.5-14.5); WBC 13.2 thou/uL (4.0-11.0)
[2021-04-17 04:55] LABS: CALCIUM 9.4 mg/dL (8.5-10.1); CREATININE 1.4 mg/dL (0.6-1.3); POTASSIUM 3.4 mmol/L (3.5-5.1)
[2021-04-17 08:00] VITALS: BP 112/83
[2021-04-17 12:00] VITALS: BP 114/63
[2021-04-17 16:00] VITALS: BP 107/79
[2021-04-18 04:45] LABS: HEMATOCRIT 36.8 % (42.0-52.0); HEMOGLOBIN 12.5 gm/dL (14.0-18.0); MCH 32.1 pg (26.0-34.0); MCV 94.4 fL (80.0-100.0); MPV 9.3 fl. (7.2-11.1); RBC 3.9 mil/uL (4.50-6.00); RDW-CV 15.2 % (10.5-14.5); WBC 10.9 thou/uL (4.0-11.0)
[2021-04-18 04:53] LABS: BUN 18 mg/dL (7-18); CALCIUM 9.3 mg/dL (8.5-10.1); CHLORIDE 86 mmol/L (98-107); CREATININE 1.3 mg/dL (0.6-1.3); GLUCOSE 124 mg/dL (70-99); SODIUM 133 mmol/L (136-145)
[2021-04-18 04:55] LABS: CO2 > 45 mmol/L (21-32); POTASSIUM 2.6 mmol/L (3.5-5.1)
[2021-04-18] MEDS ORDERED: POTASSIUM CHLO10 ME1 PO (06:16)
[2021-04-18 08:00] VITALS: BP 99/59
[2021-04-18 12:00] VITALS: BP 103/61
[2021-04-18 16:00] VITALS: BP 107/65
[2021-04-18 23:37] VITALS: BP 111/61
[2021-04-19 04:00] VITALS: BP 120/68
[2021-04-19 04:19] LABS: HEMATOCRIT 37.7 % (42.0-52.0); HEMOGLOBIN 12.6 gm/dL (14.0-18.0); MCH 31.9 pg (26.0-34.0); MCHC 33.4 g/dL (28.0-37.0); MCV 95.4 fL (80.0-100.0); MPV 9.1 fl. (7.2-11.1); RBC 3.95 mil/uL (4.50-6.00); RDW-CV 15.5 % (10.5-14.5); WBC 10.3 thou/uL (4.0-11.0)
[2021-04-19 04:40] LABS: BUN 17 mg/dL (7-18); CALCIUM 9.3 mg/dL (8.5-10.1); CHLORIDE 88 mmol/L (98-107); CREATININE 1.4 mg/dL (0.6-1.3); GLUCOSE 114 mg/dL (70-99); SODIUM 133 mmol/L (136-145)
[2021-04-19 05:16] LABS: POTASSIUM 2.8 mmol/L (3.5-5.1)
[2021-04-19 05:17] LABS: CO2 > 45 mmol/L (21-32)
[2021-04-19 08:00] VITALS: BP 130/76
[2021-04-19 12:00] VITALS: BP 123/76
[2021-04-19 16:00] VITALS: BP 119/89
[2021-04-19 20:00] VITALS: BP 102/71
[2021-04-20 01:00] VITALS: BP 111/74
[2021-04-20 02:34] LABS: HEMATOCRIT 38.6 % (42.0-52.0); HEMOGLOBIN 13.1 gm/dL (14.0-18.0); MCHC 33.9 g/dL (28.0-37.0); MCV 94.5 fL (80.0-100.0); MPV 8.7 fl. (7.2-11.1); RBC 4.09 mil/uL (4.50-6.00); RDW-CV 15.2 % (10.5-14.5); WBC 9.6 thou/uL (4.0-11.0)
[2021-04-20 02:43] LABS: BE 17.4 mmol/L (-2 to +3); PO2 77.4 mmHg (75.0-100.0); pH 7.416 (7.340-7.450)
[2021-04-20 02:44] LABS: PCO2 73.6 mmHg (35.0-45.0)
[2021-04-20 02:44] LABS: CALCIUM 9.5 mg/dL (8.5-10.1); CREATININE 1.2 mg/dL (0.6-1.3); MAGNESIUM 2.2 mg/dL (1.8-2.4)
[2021-04-20 02:50] LABS: POTASSIUM 2.9 mmol/L (3.5-5.1)
[2021-04-20 04:00] VITALS: BP 105/78
[2021-04-20 08:00] VITALS: BP 103/64
--- NOTE | 2021-04-20 09:08 | EKG ---
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
[2021-04-20 12:00] VITALS: BP 105/58
--- NOTE | 2021-04-20 15:31 | EKG ---
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
[2021-04-20 15:54] VITALS: BP 96/59
[2021-04-20] MEDS ORDERED: POTASSIUM20 PO (16:12)
[2021-04-20] MEDS ORDERED: CIPRO500 M1 PO (16:30)
[2021-04-20 17:23] VITALS: BP 96/59
== END 2021-04-20 19:40 | disposition home or self-care (01) | DRG 871 ==
LOC: M.ERS 06:24 → M.2W 07:44 → M.TBA-ER 07:44 → M.2W 09:19
PROVIDERS: Emergency Medicine; Family Medicine; Internal Medicine; ADMIT Internal Medicine; ATTEND Internal Medicine
DX: A41.9 Sepsis, unspecified organism (principal); N17.0 Acute kidney failure with tubular necrosis; L03.115 Cellulitis of right lower limb; E87.1 Hypo-osmolality and hyponatremia; J96.10 Chronic respiratory failure, unspecified whether with hypoxia or hypercapnia; I50.30 Unspecified diastolic (congestive) heart failure; Z68.41 Body mass index [BMI] 40.0-44.9, adult; Z20.822 Contact with and (suspected) exposure to COVID-19; M06.9 Rheumatoid arthritis, unspecified; J44.9 Chronic obstructive pulmonary disease, unspecified; I48.91 Unspecified atrial fibrillation; E87.6 Hypokalemia; E66.01 Morbid (severe) obesity due to excess calories; I73.9 Peripheral vascular disease, unspecified; Z82.49 Family history of ischemic heart disease and other diseases of the circulatory system; Z82.3 Family history of stroke; Z79.899 Other long term (current) drug therapy

== ENCOUNTER → 2021-04-28 | Outpatient (CLI) | payer OTHER ==
[~2021-04-28] MED LIST changes: +CIPRO500 M1 PO; +POTASSIUM CHLO10 ME1 PO; +POTASSIUM20 PO
== END ==
LOC: M.WC 04-21 10:00
PROVIDERS: ATTEND Internal Medicine
DX: I87.313 Chronic venous hypertension (idiopathic) with ulcer of bilateral lower extremity (principal); L97.812 Non-pressure chronic ulcer of other part of right lower leg with fat layer exposed; L97.822 Non-pressure chronic ulcer of other part of left lower leg with fat layer exposed; E66.01 Morbid (severe) obesity due to excess calories; G47.30 Sleep apnea, unspecified; I89.0 Lymphedema, not elsewhere classified; I48.91 Unspecified atrial fibrillation; J44.9 Chronic obstructive pulmonary disease, unspecified; M06.9 Rheumatoid arthritis, unspecified; F17.200 Nicotine dependence, unspecified, uncomplicated; Z68.41 Body mass index [BMI] 40.0-44.9, adult

== ENCOUNTER → 2021-05-05 | Outpatient (CLI) | payer OTHER | LOC: M.WC 08:25 | PROVIDERS: ATTEND Surgery | DX: I87.313 Chronic venous hypertension (idiopathic) with ulcer of bilateral lower extremity (principal); L97.812 Non-pressure chronic ulcer of other part of right lower leg with fat layer exposed; L97.822 Non-pressure chronic ulcer of other part of left lower leg with fat layer exposed; E66.01 Morbid (severe) obesity due to excess calories; G47.30 Sleep apnea, unspecified; I89.0 Lymphedema, not elsewhere classified; I48.91 Unspecified atrial fibrillation; J44.9 Chronic obstructive pulmonary disease, unspecified; M06.9 Rheumatoid arthritis, unspecified; F17.200 Nicotine dependence, unspecified, uncomplicated; Z68.41 Body mass index [BMI] 40.0-44.9, adult ==

== ENCOUNTER → 2021-05-12 | Outpatient (CLI) | payer OTHER | LOC: M.WC 08:32 | PROVIDERS: ATTEND Surgery | DX: I87.313 Chronic venous hypertension (idiopathic) with ulcer of bilateral lower extremity (principal); L97.812 Non-pressure chronic ulcer of other part of right lower leg with fat layer exposed; L97.822 Non-pressure chronic ulcer of other part of left lower leg with fat layer exposed; E66.01 Morbid (severe) obesity due to excess calories; G47.30 Sleep apnea, unspecified; I89.0 Lymphedema, not elsewhere classified; I48.91 Unspecified atrial fibrillation; J44.9 Chronic obstructive pulmonary disease, unspecified; M06.9 Rheumatoid arthritis, unspecified; F17.200 Nicotine dependence, unspecified, uncomplicated; Z68.41 Body mass index [BMI] 40.0-44.9, adult ==

== ENCOUNTER 2021-08-28 03:35 | Inpatient (IN) | payer OTHER ==
[2021-08-28] VITALS (8 sets, daily range): BP systolic 91–162; BP diastolic 60–79
[~2021-08-28] VITALS: Ht 177.8 cm; Wt 120.1 kg
[2021-08-28 04:34] LABS: ABSOLUTE BASOPHILS 0.2 thou/uL (0.0-0.2); ABSOLUTE EOSINOPHILS 0.3 thou/uL (0.0-0.7); ABSOLUTE LYMPHOCYTES 2.2 thou/uL (0.8-5.3); ABSOLUTE MONOCYTES 1.4 thou/uL (0.0-1.2); EOSINOPHILS 1.9 %; HEMATOCRIT 32.7 % (42.0-52.0); HEMOGLOBIN 10.3 gm/dL (14.0-18.0); LYMPHOCYTES 14.6 %; MCH 28.7 pg (26.0-34.0); MCHC 31.6 g/dL (28.0-37.0); NUCLEATED RBCS 0 /100WBC; PLATELET COUNT* 322 thou/uL (150-400); POLYS 73.5 %; RBC 3.59 mil/uL (4.50-6.00); RDW-CV 16.6 % (10.5-14.5)
[2021-08-28 04:41] LABS: INR 1.1; PROTIME 11.6 Seconds (9.20-11.50)
[2021-08-28 04:57] LABS: CALCIUM 8.7 mg/dL (8.5-10.1); CREATININE 1.2 mg/dL (0.6-1.3); POTASSIUM 4.4 mmol/L (3.5-5.1)
[2021-08-28 05:00] LABS: ALBUMIN 2.9 g/dL (3.4-5.0); MAGNESIUM 2.3 mg/dL (1.8-2.4); TOTAL BILIRUBIN 0.4 mg/dL (<0.1-1.0); TOTAL PROTEIN 7.6 g/dL (6.4-8.2)
[2021-08-28 05:04] LABS: BE 4.4 mmol/L (-2 to +3); PO2 78.4 mmHg (75.0-100.0)
[2021-08-28 05:06] LABS: PCO2 69.7 mmHg (35.0-45.0); pH 7.289 (7.340-7.450)
--- NOTE | 2021-08-28 11:33 | EKG ---
[place] [address] ELECTROCARDIOGRAM REPORT Name: CAROLYN LOPEZ Room: [place] [address] ADM IN [facility].#: [id number] Admission: 08/28/21 Attend Phys: Nathan Navarro, Discharge: Date of : 54 Date of Service: 08/28/21 0341 Report #: [id number] THIS REPORT FOR: //name// [facility] ED Test Date: 2021-08-28 Test Time: 03:41:32 Pat Name: CAROLYN JESSICA Department: Room: [facility] Gender: M Medicine Assistant: BRYANNA : 1950 Requested By: Jenny Koch Order Number: [id number] MD: Dao Amor Measurements Intervals [place] Rate: 93 P: -84 IA: 206 QRS: -3 QRSD: 97 T: 39 QT: 347 QTc: 432 Interpretive Statements Sinus or ectopic atrial rhythm Borderline low voltage, extremity leads Probable anteroseptal infarct, old Compared to ECG 04/20/2021 14:01:50 Ectopic atrial rhythm now present Myocardial infarct finding now present Atrial fibrillation no longer present Electronically Signed On 08-28-2021 11:32:49 CDT by Dao Amor [email or web address] <ELECTRONICALLY SIGNED> By: Graciela Amor MD, [facility] 08/28/21 1132 0 0 Graciela Amor MD, [facility] /EPI
[2021-08-28 13:24] LABS: URINE BILIRUBIN NEGATIVE (Negative); URINE BLOOD NEGATIVE (Negative); URINE CLARITY CLEAR; URINE COLOR YELLOW; URINE GLUCOSE-RANDOM NEGATIVE (Negative); URINE KETONES NEGATIVE (Negative); URINE LEUKOCYTES-REFLEX NEGATIVE (Negative); URINE NITRITE-REFLEX NEGATIVE (Negative); URINE PROTEIN NEGATIVE (Negative); URINE UROBILINOGEN 0.2 E.U./dl (0.2-1.0)
[2021-08-29 03:18] VITALS: BP 119/85
[2021-08-29 03:55] LABS: CALCIUM 8.5 mg/dL (8.5-10.1); CREATININE 0.9 mg/dL (0.6-1.3); POTASSIUM 3.4 mmol/L (3.5-5.1)
[2021-08-29 04:08] LABS: HEMATOCRIT 32.2 % (42.0-52.0); MCH 28.6 pg (26.0-34.0); MCV 92.1 fL (80.0-100.0); MPV 8.7 fl. (7.2-11.1); RBC 3.49 mil/uL (4.50-6.00); RDW-CV 16.9 % (10.5-14.5); WBC 14.1 thou/uL (4.0-11.0)
[2021-08-29 12:00] VITALS: BP 111/64
[2021-08-29 16:00] VITALS: BP 116/63
[2021-08-29 20:00] VITALS: BP 127/59
[2021-08-29 23:48] VITALS: BP 102/60
[2021-08-30 05:00] LABS: HEMATOCRIT 31.6 % (42.0-52.0); HEMOGLOBIN 9.8 gm/dL (14.0-18.0); MCH 28.5 pg (26.0-34.0); MCHC 31.1 g/dL (28.0-37.0); MCV 91.8 fL (80.0-100.0); MPV 8.5 fl. (7.2-11.1); RBC 3.44 mil/uL (4.50-6.00); RDW-CV 16.2 % (10.5-14.5); WBC 11.4 thou/uL (4.0-11.0)
[2021-08-30 05:13] LABS: CALCIUM 8.5 mg/dL (8.5-10.1); CREATININE 0.8 mg/dL (0.6-1.3); POTASSIUM 3.2 mmol/L (3.5-5.1)
[2021-08-30 05:44] VITALS: BP 99/57
[2021-08-30 08:00] VITALS: BP 130/65
[2021-08-30 10:59] LABS: PO2 98.8 mmHg (75.0-100.0)
[2021-08-30 11:02] LABS: PCO2 80.7 mmHg (35.0-45.0); pH 7.295 (7.340-7.450)
[2021-08-30 12:00] VITALS: BP 117/63
[2021-08-30 14:26] LABS: BE 10.9 mmol/L (-2 to +3); PO2 65.7 mmHg (75.0-100.0); pH 7.326 (7.340-7.450)
[2021-08-30 14:30] LABS: PCO2 77.9 mmHg (35.0-45.0)
[2021-08-30 16:00] VITALS: BP 124/72
[2021-08-30 18:33] LABS: CALCIUM 8.8 mg/dL (8.5-10.1); CREATININE 0.9 mg/dL (0.6-1.3); MAGNESIUM 2.1 mg/dL (1.8-2.4); POTASSIUM 3.8 mmol/L (3.5-5.1)
[2021-08-30 20:00] VITALS: BP 133/75
[2021-08-31 00:25] VITALS: BP 130/76
[2021-08-31 04:59] VITALS: BP 138/83
[2021-08-31 05:50] LABS: HEMATOCRIT 34.2 % (42.0-52.0); HEMOGLOBIN 10.9 gm/dL (14.0-18.0); MCH 28.9 pg (26.0-34.0); MCHC 31.8 g/dL (28.0-37.0); MCV 90.9 fL (80.0-100.0); NUCLEATED RBCS 0 /100WBC; PLATELET COUNT* 348 thou/uL (150-400); RBC 3.77 mil/uL (4.50-6.00); WBC 12.4 thou/uL (4.0-11.0)
[2021-08-31 06:08] LABS: CALCIUM 9.1 mg/dL (8.5-10.1); CREATININE 0.9 mg/dL (0.6-1.3); MAGNESIUM 2.3 mg/dL (1.8-2.4); POTASSIUM 3.6 mmol/L (3.5-5.1)
[2021-08-31 07:14] LABS: ABSOLUTE LYMPHOCYTES 0.9 thou/uL (0.8-5.3); ABSOLUTE MONOCYTES 0.4 thou/uL (0.0-1.2); ABSOLUTE NEUTROPHILS 11.2 thou/uL (1.6-8.1); ANISOCYTOSIS 1+; PLATELET ESTIMATE ADEQUATE; POIKILOCYTOSIS 1+
[2021-08-31 08:00] VITALS: BP 124/64
[2021-08-31 08:46] LABS: BE 12.1 mmol/L (-2 to +3); PO2 71.7 mmHg (75.0-100.0); pH 7.424 (7.340-7.450)
[2021-08-31 08:51] LABS: PCO2 61.1 mmHg (35.0-45.0)
[2021-08-31 12:08] VITALS: BP 115/66
[2021-08-31 16:00] VITALS: BP 128/59
--- NOTE | 2021-08-31 18:35 | CON ---
[address] [address] CONSULTATION Name: CAROLYN LOPEZ Room: [address] IN M.R.#: [id number] Admission: 08/28/21 Attend Phys: Nathan aNvarro MD Discharge: Date of : 54 Report #: [id number] THIS REPORT FOR: cc: FAM - Family physician unknown FAM - Family physician unknown Jevon Heard MD ~ DATE OF CONSULTATION: 08/30/2021 REQUESTING PHYSICIAN: Dr. Harmon. INDICATION FOR CONSULTATION: Acute on chronic hypercarbic respiratory failure. HISTORY OF PRESENT ILLNESS: This is a 70-year-old gentleman, I have seen him here in a previous admission. He has a history of chronic hypercarbic respiratory failure, also hypoxemic, on long-term oxygen secondary to COPD. He also has obstructive sleep apnea; however, he is noncompliant with CPAP or BiPAP at home. He is anticoagulated for atrial fibrillation and has had cellulitis and lower extremity edema. At this time, the patient is again admitted with shortness of breath. He has had cough. There is not much sputum. There is no chest pain. He does have swelling of lower extremities. He does not have upper respiratory complaints. Previously, has had significant heartburn. This is under control at this time. REVIEW OF SYSTEMS: For 12 points is negative except as mentioned above. The patient's oxygen is being titrated down. He at one point was on heated high-flow nasal cannula. If we are now down to 5 liters of oxygen, he is maintaining O2 saturation in the mid 90s. PAST MEDICAL HISTORY: COPD, oxygen-dependent, chronic, hypoxemic and hypercarbic respiratory failure secondary to COPD, has previously not been compliant with BiPAP, obstructive sleep apnea, atrial fibrillation, on anticoagulation long-term with past history of rheumatoid arthritis and C. difficile colitis. In the past, had heavy alcohol intake and at one point had seizures secondary to alcohol withdrawal. Previous echo shows normal left ventricular ejection fraction without elevation in right heart pressures, gastroesophageal reflux disease. SOCIAL HISTORY: As of January of this year, he was still actively smoking up to a pack a day and had been smoking for several decades. He now resides at a long-term care facility. It is not known to me as to whether he has continued to smoke there as well or not. Also, history of heavy alcohol intake, discontinued in 2018. No known history of illegal drug use. CURRENT MEDICATIONS: [place] [address] CONSULTATION Name: CAROLYN LOPEZ Room: [address]#: [id number] Admission: 08/28/21 Attend Phys: Nathan Navarro MD Discharge: Date of : 54 Report #: [id number] HOME MEDICATIONS: List in [employer] also reviewed. Note that he is on long-term anticoagulation. ALLERGIES: No known drug allergies. FAMILY HISTORY: Heart disease. IMMUNIZATION HISTORY: Received [employer] Teddy COVID-19 vaccine in mid July. PHYSICAL EXAMINATION: GENERAL: He is alert, awake and oriented, does not appear to be in any distress at this time. VITAL SIGNS: Has a pulse of 79 and a blood pressure of 124/72. His O2 saturation has recently been decreased to 5 liters. So far, he is maintaining O2 saturation in the mid 90s. His respiratory rate is 20. He is afebrile with a temperature of 36.2. HEENT: Head is normocephalic and atraumatic. Pupils are equal and reactive. There is no throat erythema. He does not have thrush in his throat. NECK: Does not show raised JVP, asymmetry, mass or lymph nodes. CHEST: Symmetrical expansion on inspection and palpation. On auscultation, breath sounds are bilaterally equal, but decreased. No added sounds. HEART: Regular. There is no murmur. ABDOMEN: Mildly distended, nontender. EXTREMITIES: Lower extremities show 1+ edema. There is no calf tenderness. SKIN: Dry and intact. NEUROLOGIC: Moves all extremities bilaterally equally and spontaneously with no focal deficit identified. IMAGING DATA: The patient's chest x-ray is reviewed, which I just ordered for now and compared with the patient's previous chest x-rays. There are radiopaque densities in bilateral lower lobes, which could indicate would be secondary to atelectasis, mild increase in pulmonary vascular congestion as well as infiltrate. LABORATORY DATA: Shows a low BUN and also decreased potassium in [facility] reviewed. Arterial blood gas consistent with acute on chronic hypercarbic respiratory failure in [facility] reviewed. COVID-19 antigen is negative. ASSESSMENT AND PLAN: 1. Acute on chronic hypoxemic and hypercarbic respiratory failure. The patient previously had either a continuous positive airway pressure or bilevel positive airway pressure at home with which he was noncompliant and had limited [address] [address] CONSULTATION Name: CAROLYN LOPEZ Room: [address] IN [facility]#: [id number] Admission: 08/28/21 Attend Phys: Nathan Navarro MD Discharge: Date of : 54 Report #: [id number] compliance with bilevel positive airway pressure in the hospital as well. At this point, I would recommend that he be kept on bilevel positive airway pressure whenever he is asleep. Recommend arranging a bilevel positive airway pressure or Trilogy device for him to use at the long-term care facility. Would continue to titrate down oxygen. The rising pCO2 is partly secondary to hypercarbic respiratory failure and it is partly secondary to hypokalemia. Recommend replacing potassium. This will likely decrease pCO2 levels. 2. Chronic obstructive pulmonary disease exacerbation. I agree with Solu-Medrol. At this point, I feel that we can go ahead and start cutting down the dose. I would start with DuoNeb. 3. Pulmonary infiltrates. Discussion regarding chest x-ray as above. There is no definite evidence of bacterial infection. I decided to only watch for now. After replacing his potassium, we will try to diurese him. If findings persist or if he declines, then I will have a low threshold of starting an antibiotic. 4. Fluid overload. He is on daily Lasix as well as potassium. I intend to give him additional diuresis, but after replacement of potassium. 5. Hypokalemia. See discussion above. Repeating labs now. 6. Obstructive sleep apnea. See discussion above. 7. History of atrial fibrillation. He is on anticoagulation. 8. Past history of Clostridium difficile colitis. <ELECTRONICALLY SIGNED> By: Jevon Heard MD 08/31/21 1835 1726 2055AMD corey Tolentino
[2021-08-31 20:00] VITALS: BP 173/65
[2021-09-01] VITALS: BP 140/81
[2021-09-01 04:00] VITALS: BP 168/87
[2021-09-01 05:33] LABS: CALCIUM 9.1 mg/dL (8.5-10.1); MAGNESIUM 2.3 mg/dL (1.8-2.4); POTASSIUM 3.7 mmol/L (3.5-5.1)
[2021-09-01 08:00] VITALS: BP 133/77
[2021-09-01 11:30] VITALS: BP 103/64
[2021-09-01] MEDS ORDERED: PREDNISONE 10 M10 MG PO (11:53)
[2021-09-01 15:46] VITALS: BP 137/68
== END 2021-09-01 17:28 | DRG 291 ==
LOC: M.ERS 03:35 → M.2W 05:17 → M.TBA-ER 05:17 → M.2W 19:06
PROVIDERS: Internal Medicine; Internal Medicine Critical Care Medicine; Personal Emergency Response Attendant; ADMIT Internal Medicine; ATTEND Internal Medicine
PROC: 5A0935A Assistance with Respiratory Ventilation, Less than 24 Consecutive Hours, High Flow/Velocity Cannula (ICD-10-PCS; principal; 2021-08-28)
PROC: 5A09357 Assistance with Respiratory Ventilation, Less than 24 Consecutive Hours, Continuous Positive Airway Pressure (ICD-10-PCS; principal; 2021-08-28)
PROC: 5A0935A Assistance with Respiratory Ventilation, Less than 24 Consecutive Hours, High Flow/Velocity Cannula (ICD-10-PCS; 2021-08-29)
PROC: 5A09357 Assistance with Respiratory Ventilation, Less than 24 Consecutive Hours, Continuous Positive Airway Pressure (ICD-10-PCS; 2021-08-29)
PROC: 5A09357 Assistance with Respiratory Ventilation, Less than 24 Consecutive Hours, Continuous Positive Airway Pressure (ICD-10-PCS; 2021-08-30)
PROC: 5A09357 Assistance with Respiratory Ventilation, Less than 24 Consecutive Hours, Continuous Positive Airway Pressure (ICD-10-PCS; 2021-08-31)
PROC: 5A0935A Assistance with Respiratory Ventilation, Less than 24 Consecutive Hours, High Flow/Velocity Cannula (ICD-10-PCS; 2021-08-31)
PROC: 5A0935A Assistance with Respiratory Ventilation, Less than 24 Consecutive Hours, High Flow/Velocity Cannula (ICD-10-PCS; 2021-09-01)
PROC: 5A09357 Assistance with Respiratory Ventilation, Less than 24 Consecutive Hours, Continuous Positive Airway Pressure (ICD-10-PCS; 2021-09-01)
DX: I50.33 Acute on chronic diastolic (congestive) heart failure (principal); J96.22 Acute and chronic respiratory failure with hypercapnia; J96.21 Acute and chronic respiratory failure with hypoxia; R65.11 Systemic inflammatory response syndrome (SIRS) of non-infectious origin with acute organ dysfunction; J44.1 Chronic obstructive pulmonary disease with (acute) exacerbation; Z20.822 Contact with and (suspected) exposure to COVID-19; I48.91 Unspecified atrial fibrillation; M06.9 Rheumatoid arthritis, unspecified; E66.9 Obesity, unspecified; G47.33 Obstructive sleep apnea (adult) (pediatric); K21.9 Gastro-esophageal reflux disease without esophagitis; E87.6 Hypokalemia; Z68.38 Body mass index [BMI] 38.0-38.9, adult; Z82.49 Family history of ischemic heart disease and other diseases of the circulatory system

== ENCOUNTER 2021-11-19 16:37 | Inpatient (IN) | payer OTHER ==
[~2021-11-19] VITALS: Ht 177.8 cm; Wt 127.5 kg
[2021-11-19 16:40] VITALS: BP 98/52
[2021-11-19 17:09] LABS: ABSOLUTE BASOPHILS 0.1 thou/uL (0.0-0.2); ABSOLUTE EOSINOPHILS 0.6 thou/uL (0.0-0.7); ABSOLUTE LYMPHOCYTES 2.2 thou/uL (0.8-5.3); ABSOLUTE MONOCYTES 1.2 thou/uL (0.0-1.2); ABSOLUTE NEUTROPHILS 4.1 thou/uL (1.6-8.1); BASOPHILS 1.1 %; HEMATOCRIT 33.1 % (42.0-52.0); HEMOGLOBIN 10.6 gm/dL (14.0-18.0); LYMPHOCYTES 27.2 %; MCH 28.2 pg (26.0-34.0); MCV 88.4 fL (80.0-100.0); MONOCYTES 14.1 %; MPV 8.4 fl. (7.2-11.1); NUCLEATED RBCS 0 /100WBC; PLATELET COUNT* 324 thou/uL (150-400); POLYS 50.6 %; RBC 3.75 mil/uL (4.50-6.00); RDW-CV 15.6 % (10.5-14.5); WBC 8.2 thou/uL (4.0-11.0)
[2021-11-19 17:13] LABS: CALCIUM 8.8 mg/dL (8.5-10.1); CREATININE 1.4 mg/dL (0.6-1.3); POTASSIUM 4.6 mmol/L (3.5-5.1)
[2021-11-19] MEDS ORDERED: SINGULAIR 10 MG10 MG PO (17:14)
[2021-11-19] MEDS ORDERED: PULMICORT0.5 MG/2 M INH (17:14)
[2021-11-19] MEDS ORDERED: HYDROCODON-ACE1 EAC7 PO (17:15)
[2021-11-19] MEDS ORDERED: [UNRECOGNIZED DRUG - OTHER] PO (17:16)
[2021-11-19] MEDS ORDERED: IPRAT-ALBUT 0.5-3 ML INH (17:17)
[2021-11-19] MEDS ORDERED: LORATIDINE 10 M10 M1 PO (17:18)
[2021-11-19] MEDS ORDERED: MIRALAX119 GM PO (17:18)
[2021-11-19 17:23] LABS: ALBUMIN 3.1 g/dL (3.4-5.0); TOTAL BILIRUBIN 0.3 mg/dL (<0.1-1.0); TOTAL PROTEIN 7.4 g/dL (6.4-8.2)
[2021-11-19 18:30] VITALS: BP 99/47
[2021-11-19 20:06] LABS: URINE BILIRUBIN NEGATIVE (Negative); URINE BLOOD NEGATIVE (Negative); URINE CLARITY CLEAR; URINE COLOR YELLOW; URINE GLUCOSE-RANDOM NEGATIVE (Negative); URINE KETONES NEGATIVE (Negative); URINE LEUKOCYTES-REFLEX NEGATIVE (Negative); URINE NITRITE-REFLEX NEGATIVE (Negative); URINE PROTEIN NEGATIVE (Negative); URINE SPECIFIC GRAVITY 1.015 (1.005-1.030); URINE UROBILINOGEN 0.2 E.U./dl (0.2-1.0)
--- NOTE | 2021-11-19 21:50 | NUR ---
PT REPORT TO [facility].
[2021-11-19 22:30] VITALS: BP 111/66
[2021-11-20] VITALS (7 sets, daily range): BP systolic 97–114; BP diastolic 57–72
--- NOTE | 2021-11-20 12:25 | EKG ---
[place] [address] ELECTROCARDIOGRAM REPORT Name: CAROLYN LOPEZ Room: [place] [address] [facility]#: [id number] Admission: 11/19/21 Attend Phys: Wang Mccarty Discharge: Date of : 54 Date of Service: 11/19/21 1653 Report #: [id number] THIS REPORT FOR: //name// [facility] ED Test Date: 2021-11-19 Test Time: 16:53:57 Pat Name: CAROLYN TORRESRADHA Department: Room: [facility] Gender: M Hospital Security Officer: ADÁN : 1950 Requested By: Heron Aaron Order Number: [id number] MD: Dao Amor Measurements Intervals [place] Rate: 61 P: [place]: QRS: 56 QRSD: 100 T: 58 QT: 399 QTc: 402 Interpretive Statements Atrial fibrillation Borderline low voltage, extremity leads Minimal ST elevation, inferior leads Compared to ECG 08/28/2021 03:41:32 ST (T wave) deviation now present Ectopic atrial rhythm no longer present Myocardial infarct finding no longer present Electronically Signed On 11-20-2021 12:25:12 EXHIBIT BUILDER by Dao Amor [email or web address] <ELECTRONICALLY SIGNED> By: Graciela Amor MD, FACC 11/20/21 1225 165 1653 Graciela Amor MD, [facility] /EPI
[2021-11-21 04:25] VITALS: BP 123/63
--- NOTE | 2021-11-21 05:28 | NUR ---
PT FROM ED APPROX 2330. HE IS AO X4 SITTING IN RECLINER. HE IS VERY DYSPNIC HAVING TO STOP BETWEEN WORDS WHEN SPEAKING. LUNGS ARE DIMINISHED WITH RHALES BILATERALLY. COUGH IS CONGESTED WITH NO PRODUCTION. HE IS ON 3L NC. PT IS OBESE, ABD IS ROUND AND FIRM, BOWEL SOUNDS PRESENT X4. PT USING URINAL WITH CLEAR YELLOW URINE. LEGS ARE 2+EDEMA WITH TIGHT RED SKIN FROM KNEES DOWN. PT IS A-FLUTTER ON METAL TILE SETTER. ULTRAM GIVEN FOR PAIN. CALL LIGHT IN REACH FOR PT SAFETY.
[2021-11-21 08:17] VITALS: BP 108/65
--- NOTE | 2021-11-21 09:45 | CON ---
[address] [address] CONSULTATION Name: JESSICACAROLYN Arlin Room: [address] IN M.R.#: [id number] Admission: 11/19/21 Attend Phys: Debra Quezada Discharge: Date of : 54 Report #: [id number] THIS REPORT FOR: cc: FAM - No family physician/PCP FAM - No family physician/PCP Graciela Amor MD [facility] ~ DATE OF CONSULTATION: 11/20/2021 CARDIOLOGY CONSULTATION HISTORY OF PRESENT ILLNESS: I was asked by Dr. Mccarty to see this 71-year-old white male in Cardiology consultation for evaluation and treatment of possible congestive heart failure. This man was sent from a [facility] here in [place] for hypotension. He was dizzy and lightheaded. He says he was sent for hypotension. When he got here, he was hypoxemic. He has COPD and on 2 liters, his O2 sats were only in the 80s. He also has a history besides the COPD, of heart failure. It was found on his chest x-ray to show normal vascularity, but patchy scattered interstitial infiltrates that were nonspecific and felt to be pneumonia. He is not known to have coronary disease and he did not have any chest pain. He was more short of breath than usual, however. He was felt to have acute hypoxic respiratory failure with COPD exacerbation and pneumonia and possible diastolic heart failure. His NT-proBNP was 1538. Troponins were negative x 3. His past medical history is also remarkable for rheumatoid arthritis and chronic atrial fibrillation. He also, apparently has a history of atrial flutter in the past. He does not ambulate. He is in a wheelchair all the time. He is a 71-year-old white male. PAST MEDICAL HISTORY: As described above. HOME MEDICATIONS: Extensive and include albuterol q. 4 hours, Reynolds p.r.n., senna p.r.n., tramadol p.r.n., diclofenac gel q.i.d., Lasix 60 mg daily, gabapentin 100 mg t.i.d., DuoNebs q.i.d., loratadine 10 mg daily, pantoprazole 40 mg b.i.d., potassium 20 mEq b.i.d. in a tablet, Celebrex 100 mg daily, Celexa 40 mg daily, diltiazem extended release 180 mg daily, Eliquis 5 mg b.i.d., Flonase 2 sprays in each nostril daily and folic acid 1 mg daily. SOCIAL HISTORY: This man is a smoker and he also is a drinker. He has recently stopped drinking. He has a history of alcohol withdrawal seizures. FAMILY HISTORY: Remarkable for history of heart disease. ALLERGIES: No known drug allergies. REVIEW OF SYSTEMS: Essentially as per the history of present illness and past medical history. [place] [address] CONSULTATION Name: CAROLYN LOPEZ Room: [address]#: [id number] Admission: 11/19/21 Attend Phys: Debra Quezada Discharge: Date of : 54 Report #: [id number] PHYSICAL EXAMINATION: GENERAL: He presents as a well-developed, well-nourished white male in no acute distress. He is obese. VITAL SIGNS: His pulse was 75 and irregular, respirations 16 and regular, blood pressure 114/58, temperature is 35.9 and his O2 sat was 97% this morning. HEENT: His head was atraumatic. NECK: There was no jugular venous distention or hepatojugular reflux. LUNGS: Fairly clear to auscultation; however, there were decreased breath sounds bilaterally and an increased expiratory phase. HEART: Revealed distant first and second heart sound. There were no murmurs, rubs, thrills, heaves or gallops. PMI was not displaced. The rhythm was irregularly irregular. ABDOMEN: Obese, soft, flat, nontender, no palpable masses, no organomegaly. EXTREMITIES: Reveal no cyanosis or clubbing. There was only a trace of ankle edema. I do note, this man says he sits all the time with his legs down all day long. NEUROLOGIC: The patient mentated normally, talked normally, moved all extremities normally. DIAGNOSTIC DATA: Chest x-ray is as described above. EKG shows atrial fibrillation with a heart rate of 61. There is borderline low voltage in the extremities. The computer called minimal ST segment elevation in the inferior leads and I see trivial to no ST segment elevation. IMPRESSION: 1. Acute hypoxic respiratory failure. 2. Chronic obstructive pulmonary disease exacerbation. 3. Pneumonia. 4. Possible congestive heart failure of uncertain type, possibly diastolic. 5. Smoking. 6. History of alcohol abuse. 7. Rheumatoid arthritis. 8. Chronic atrial fibrillation. RECOMMENDATIONS: He has already improved. I would continue his normal Lasix dose. His elevated BNP is only mildly elevated. If he develops more shortness of breath, I would give his Lasix IV. I will treat his pneumonia aggressively. I will treat his COPD exacerbation aggressively. I will check an echo. [address] [place] [address] CONSULTATION Name: CAROLYN LOPEZ Room: [address] IN [facility]#: [id number] Admission: 11/19/21 Attend Phys: Debra Quezada Discharge: Date of : 54 Report #: [id number] Thank you very much for asking me to see the patient. If there are any questions, please feel free to contact me. <ELECTRONICALLY SIGNED> By: Graciela Amor MD, FACC 11/21/21 0945 0949 1035F. Dao Amor MD, FACC /nt
[2021-11-21 11:33] VITALS: BP 123/60
--- NOTE | 2021-11-21 12:20 | CON ---
[address] [address] CONSULTATION Name: JESSICACAROLYN Arlin Room: [address] IN M.R.#: [id number] Admission: 11/19/21 Attend Phys: Debra Quezada Discharge: Date of : 54 Report #: [id number] THIS REPORT FOR: cc: FAM - No family physician/PCP FAM - No family physician/PCP Graciela Amor MD [facility] ~ CARDIOLOGY HOSPITAL FOLLOWUP VISIT The patient feels much better today. He is no longer dizzy or lightheaded or weak. He says his breathing is good. He has no complaints. He wants to go home. PHYSICAL EXAMINATION: VITAL SIGNS: His temperature is 36.7, pulse was 73, respirations 16, and blood pressure 108/65, and his O2 sat was 99% on 2 liters. NECK: There was no jugular venous distention or hepatojugular reflux. LUNGS: Revealed coarse breath sounds bilaterally with somewhat diminished breath sounds. HEART: Examination of the heart revealed distant first and second heart sounds. There were no murmurs, rubs, or gallops. ABDOMEN: Obese, soft, and nontender and there are no palpable masses, no organomegaly. EXTREMITIES: Revealed a trace of ankle and pedal edema bilaterally. IMPRESSION: 1. Pneumonia. 2. Chronic obstructive pulmonary disease with exacerbation. 3. Acute hypoxic respiratory failure. 4. Chronic atrial fibrillation. 5. Possible congestive heart failure. 6. Possible septic episode that began this symptomatic visit to the ER with severe dizziness, lightheadedness, and hypotension at the longterm. RECOMMENDATIONS: Continue his current therapy. <ELECTRONICALLY SIGNED> By: Graciela Amor MD, FACC 11/21/21 1220 1041 1113F. Dao Amor MD, FACC /nt
[2021-11-21 14:35] LABS: HEMATOCRIT 32.7 % (42.0-52.0); HEMOGLOBIN 10.5 gm/dL (14.0-18.0); MCH 28.2 pg (26.0-34.0); MCHC 32.2 g/dL (28.0-37.0); MCV 87.6 fL (80.0-100.0); MPV 8.4 fl. (7.2-11.1); NUCLEATED RBCS 0 /100WBC; PLATELET COUNT* 310 thou/uL (150-400); RBC 3.74 mil/uL (4.50-6.00); RDW-CV 15.7 % (10.5-14.5); WBC 13.7 thou/uL (4.0-11.0)
[2021-11-21 14:48] LABS: ALBUMIN 3.1 g/dL (3.4-5.0); CALCIUM 8.4 mg/dL (8.5-10.1); CREATININE 1.2 mg/dL (0.6-1.3); MAGNESIUM 2.3 mg/dL (1.8-2.4); PHOSPHORUS* 3.3 mg/dL (2.5-4.9); POTASSIUM 4.5 mmol/L (3.5-5.1); TOTAL BILIRUBIN 0.2 mg/dL (<0.1-1.0); TOTAL PROTEIN 7.2 g/dL (6.4-8.2)
[2021-11-21] MEDS ORDERED: PREDNISONE 10 M10 MG PO (15:05)
[2021-11-21] MEDS ORDERED: AZITHROMYCIN500 MG PO (15:05)
[2021-11-21 15:21] LABS: ABSOLUTE EOSINOPHILS 0.1 thou/uL (0.0-0.7); ABSOLUTE MONOCYTES 0.4 thou/uL (0.0-1.2); ABSOLUTE NEUTROPHILS 12.2 thou/uL (1.6-8.1); PLATELET ESTIMATE ADEQUATE
[2021-11-21 15:51] VITALS: BP 115/63
--- NOTE | 2021-11-21 16:47 | NUR ---
REPORT GIVEN TO CHAO, NURSE AT [facility] SUP SETTING UP TRANSPORT WITH THE SW JUNIOR ACCOUNTANT BOOKKEEPER, RAHEEL FOR W/C VAN FOR RETURN.
--- NOTE | 2021-11-21 17:46 | NUR ---
PT LEFT AT THIS TIME WITH EMS TRANSPORT BECAUSE W/C VAN WAS GOING TO BE UNTIL 2229. ROSINA CLEMENS NOTIFIED OF PT ON THE WAY.
== END 2021-11-21 17:48 | DRG 177 ==
LOC: M.ERS 16:37 → M.TBA-ER 18:17 → M.ORTHSURG 11-20 22:54
PROVIDERS: Emergency Medicine Emergency Medical Services; Internal Medicine; ADMIT Internal Medicine; ATTEND Internal Medicine
DX: J15.6 Pneumonia due to other Gram-negative bacteria (principal); J96.01 Acute respiratory failure with hypoxia; I50.31 Acute diastolic (congestive) heart failure; J44.1 Chronic obstructive pulmonary disease with (acute) exacerbation; J44.0 Chronic obstructive pulmonary disease with (acute) lower respiratory infection; Z68.41 Body mass index [BMI] 40.0-44.9, adult; Z20.822 Contact with and (suspected) exposure to COVID-19; I48.91 Unspecified atrial fibrillation; Z79.01 Long term (current) use of anticoagulants; E66.9 Obesity, unspecified; F17.210 Nicotine dependence, cigarettes, uncomplicated; M06.9 Rheumatoid arthritis, unspecified; Z66 Do not resuscitate

== ENCOUNTER 2021-12-09 23:16 | Inpatient (IN) | payer OTHER ==
[~2021-12-09] VITALS: Ht 177.8 cm; Wt 115.7 kg
[~2021-12-09 23:16] MED LIST changes: +AZITHROMYCIN500 MG PO; +HYDROCODON-ACE1 EAC7 PO; +IPRAT-ALBUT 0.5-3 ML INH; +LORATIDINE 10 M10 M1 PO; +MIRALAX119 GM PO; +PULMICORT0.5 MG/2 M INH; +SINGULAIR 10 MG10 MG PO; +[UNRECOGNIZED DRUG - OTHER] PO
[2021-12-09 23:19] VITALS: BP 115/67
[2021-12-09 23:38] LABS: ABSOLUTE LYMPHOCYTES 1.5 thou/uL (0.8-5.3); HEMOGLOBIN 12.1 gm/dL (14.0-18.0)
[2021-12-09 23:40] LABS: ABSOLUTE BASOPHILS 0.1 thou/uL (0.0-0.2); ABSOLUTE EOSINOPHILS 0.3 thou/uL (0.0-0.7); ABSOLUTE MONOCYTES 0.7 thou/uL (0.0-1.2); ABSOLUTE NEUTROPHILS 5.9 thou/uL (1.6-8.1); BASOPHILS 0.8 %; HEMATOCRIT 36.6 % (42.0-52.0); LYMPHOCYTES 17.2 %; MCH 28.5 pg (26.0-34.0); MCV 86.4 fL (80.0-100.0); MONOCYTES 8.7 %; MPV 8.9 fl. (7.2-11.1); NUCLEATED RBCS 0 /100WBC; PLATELET COUNT* 213 thou/uL (150-400); POLYS 69.3 %; RBC 4.23 mil/uL (4.50-6.00); RDW-CV 16.1 % (10.5-14.5); WBC 8.5 thou/uL (4.0-11.0)
[2021-12-10 00:07] LABS: BE 0.8 mmol/L (-2 to +3); PO2 76.4 mmHg (75.0-100.0)
[2021-12-10 00:08] LABS: pH 7.272 (7.340-7.450)
[2021-12-10 00:27] LABS: CALCIUM 8.2 mg/dL (8.5-10.1); CREATININE 1.3 mg/dL (0.6-1.3); POTASSIUM 4.1 mmol/L (3.5-5.1)
[2021-12-10 00:38] LABS: ALBUMIN 2.8 g/dL (3.4-5.0); MAGNESIUM 2.2 mg/dL (1.8-2.4); TOTAL BILIRUBIN 1.7 mg/dL (<0.1-1.0); TOTAL PROTEIN 7.5 g/dL (6.4-8.2)
[2021-12-10 01:00] LABS: INFLUENZA A ANTIGEN Negative (Negative); INFLUENZA B ANTIGEN Negative (Negative)
[2021-12-10 03:50] LABS: BE -1.4 mmol/L (-2 to +3)
[2021-12-10 03:52] LABS: PCO2 59.2 mmHg (35.0-45.0); pH 7.269 (7.340-7.450)
[2021-12-10 04:00] VITALS: BP 100/57
--- NOTE | 2021-12-10 05:33 | NUR ---
PATIENT'S DPOA HASEEB ROUSSEAU REQUESTED PT TO BECOME CONFIDENTIAL. DPOA IS REQUESTING HE IS THE ONLY ONE TO GET INFORMATION ON PT AT THIS TIME.
[2021-12-10 08:00] VITALS: BP 107/67
--- NOTE | 2021-12-10 09:41 | EKG ---
[place] [address] ELECTROCARDIOGRAM REPORT Name: CAROLYN LOPEZ Room: [place] [address] [facility]#: [id number] Admission: 12/09/21 Attend Phys: Jazlyn Moreno, Discharge: Date of : 54 Date of Service: 12/09/21 2326 Report #: [id number] THIS REPORT FOR: //name// [facility] ED Test Date: 2021-12-09 Test Time: 23:26:46 Pat Name: CAROLYN JESSICA Department: Room: [facility] Gender: M Jewelry Coater: LAUREANO : 1950 Requested By: Jolene Hernandez Order Number: [id number] MD: Emigdio Bazan Measurements Intervals [place] Rate: 111 P: [place]: QRS: 69 QRSD: 96 T: 67 QT: 316 QTc: 430 Interpretive Statements Atrial fibrillation Ventricular premature complex Compared to ECG 11/19/2021 16:53:57 Ventricular premature complex(es) now present rate has increased Electronically Signed On 12-10-2021 9:41:28 SMT TECHNICIAN by Emigdio Bazan [email or web address] <ELECTRONICALLY SIGNED> By: Emigdio Bazan MD, FAC 12/10/21 0941 2326 2326 Emigdio Bazan MD, [facility] /EPI
[2021-12-10 12:00] VITALS: BP 107/63
[2021-12-10 16:00] VITALS: BP 114/68
--- NOTE | 2021-12-10 16:00 | NUR ---
Pt is admitted to the hospital on 12/09/21 for Respiratory Failure. Pt is a [facility] Care Resident of [facility]. Confirmed this with Kylee in admissions. Attempted to call shirley Sainz at: [phone]. Faxed clinicals to Kylee at [facility]. Shirley Sainz is identified as DPOA. CM to continue to follow for discharge planning.
--- NOTE | 2021-12-10 19:38 | NUR ---
PT SISTER CALLED RE: PT CONDITION--SISTER INSTRUCTED TO NOTIFY PT'S SON RE: PT CONDITION/DISPOSITION
[2021-12-10 20:00] VITALS: BP 118/60
[2021-12-10 23:30] VITALS: BP 110/67
[2021-12-11 00:07] VITALS: BP 125/71
[2021-12-11 03:53] VITALS: BP 110/70
--- NOTE | 2021-12-11 04:49 | NUR ---
RECEIVED PT FROM ED AT APPROX 2240. PT IS LETHARGIC BUT IS AROUSABLE, ABLE TO ANSWER SOME SIMPLE QUESTIONS, PT IS SHORT OF BREAATH WHEN TALKING. PT IS ON THE BIPAP w/ 100% FIO2. UNABLE TO REMAIN AWAKE TO FINISH ADMISSION QUESTIONS. PT IS TRACING AFIB-RATE CONTROLLED ON THE PIPE ROLLER-CARDIZEM GTT ORDERED. PT IS CLOSELY MONITORED. HIGH FALL PRECAUTIONS IN PLACE.
[2021-12-11 09:00] VITALS: BP 129/75
[2021-12-11 12:00] VITALS: BP 131/80
[2021-12-11 16:00] VITALS: BP 122/77
[2021-12-11 20:00] VITALS: BP 147/78
--- NOTE | 2021-12-11 20:09 | NUR ---
THIS NURSE MET WITH PT AND SON HASEEB; PT CURRENTLY 100% DEPENDENT ON BIPAP MAX SETTINGS; PT ALERT AND ORIENT X3 APPROPRIATE, BUT WITH REMOVAL OF BIPAP DESATS INTO THE 70'S IMMEDIATLY; PT CLEARLY STATED TO THIS NURSE AND HIS SON THAT HE IS A DNI AND DNR; HE WENT ON TO STATE "I DON'T WANT TO LIVE IF I AM NOT GOING TO BE ABLE TO GET UP AND WALK AROUND"; PT REPORTED THAT HE WANTS QUALITLY OF LIFE AND IN HIS TERMS THAT IS BEING ABLE TO AMBULATE AT THE [facility]: SON WAS IN AGREEMENT THAT THIS IS A PRIORITY; SON PLANS TO MEET WITH THE DOCTOR IN THE AM FROM OUT OF TOWN PLANS TO STAY ON THE PROPERTY.
[2021-12-12 00:02] VITALS: BP 115/50
[2021-12-12 04:00] VITALS: BP 128/74
--- NOTE | 2021-12-12 05:30 | NUR ---
Assumed pt care at approx 1930. Pt is awake, oriented x3, forgetful and confused at times, taking their Bipap off multiple times this shift. Son/DPJAVIER Sainz was in the room with houseperson to visit. Pt is maintained on cardizem gtt as ordered. Pt is tracing Afib-rate controlled on the library monitor. Pt is closely monitored and is maintained on the Bipap to keep SPo2 >92%.
[2021-12-12 05:45] LABS: ABSOLUTE LYMPHOCYTES 0.3 thou/uL (0.8-5.3); ABSOLUTE MONOCYTES 0.6 thou/uL (0.0-1.2); ABSOLUTE NEUTROPHILS 14.1 thou/uL (1.6-8.1); BASOPHILS 0.1 %; HEMATOCRIT 33.6 % (42.0-52.0); HEMOGLOBIN 10.8 gm/dL (14.0-18.0); LYMPHOCYTES 2.2 %; MCH 27.9 pg (26.0-34.0); MCV 87.2 fL (80.0-100.0); MONOCYTES 4.1 %; MPV 8.8 fl. (7.2-11.1); NUCLEATED RBCS 0 /100WBC; POLYS 93.6 %; RBC 3.86 mil/uL (4.50-6.00); RDW-CV 16.2 % (10.5-14.5); WBC 15.1 thou/uL (4.0-11.0)
[2021-12-12 06:02] LABS: PLATELET COUNT* 343 thou/uL (150-400)
[2021-12-12 06:10] LABS: ALBUMIN 2.5 g/dL (3.4-5.0); CALCIUM 8.8 mg/dL (8.5-10.1); CREATININE 1.3 mg/dL (0.6-1.3); MAGNESIUM 2.6 mg/dL (1.8-2.4); PHOSPHORUS* 2.3 mg/dL (2.5-4.9); POTASSIUM 3.4 mmol/L (3.5-5.1); TOTAL BILIRUBIN 0.8 mg/dL (<0.1-1.0); TOTAL PROTEIN 7.6 g/dL (6.4-8.2)
[2021-12-12 06:40] LABS: BE 5.2 mmol/L (-2 to +3); pH 7.421 (7.340-7.450)
[2021-12-12 20:00] VITALS: BP 121/67
--- NOTE | 2021-12-13 06:31 | NUR ---
ASSUMED CARE OF PT AFTER REPORT AT 1930. PT NONRESPONSIVE. PHYSICAL ASSESSMENT COMPLETED AND CHARTED. ON COMFORT CARE MEASURES. ONGOING MORPHINE DRIP.
[2021-12-13 08:40] VITALS: BP 96/57
[2021-12-13 10:11] VITALS: BP 96/57
--- NOTE | 2021-12-13 16:28 | NUR ---
CM CALLED PT SON (HASEEB [phone]) TO COMPLETE ASSESSMENT AND DISCUSS IF FAMILY OPEN TO HOSPICE. CM UNABLE TO MAKE CONTACT. PT ON COMFORT CARE WITH AGONAL BREATHING. CM TO FOLLOW.
--- NOTE | 2021-12-13 18:32 | NUR ---
Pt remains on comfort care, morphine gtt for pain control and comfort. HR 80s to 100s per monitor; SaO2 40s-60s, though primarily in the mid-60s on 4L. Will continue to monitor.
--- NOTE | 2021-12-13 20:41 | NUR ---
ASSUMED CARE OF PT AFTER REPORT. PT UNRESPONSIVE. ON COMFORT CARE. HR-0 BP-0 RR-0. PRONOUNCED CLINICALLY AT 1949 BY HENNA COPELAND RN & RJ REESE RN. DR SANDHU, SON HASEEB, RECONCILER MADE AWARE.
== END 2021-12-13 19:49 | DRG 177 ==
LOC: M.ERS 23:16 → M.TBA-ER 23:59 → M.ORTHSURG 12-10 23:40
PROVIDERS: Emergency Medicine; Internal Medicine; ADMIT Internal Medicine; ATTEND Internal Medicine
PROC: 5A09457 Assistance with Respiratory Ventilation, 24-96 Consecutive Hours, Continuous Positive Airway Pressure (ICD-10-PCS; principal; 2021-12-10)
PROC: XW033E5 Introduction of Remdesivir Anti-infective into Peripheral Vein, Percutaneous Approach, New Technology Group 5 (ICD-10-PCS; 2021-12-11)
DX: U07.1 COVID-19 (principal); J15.6 Pneumonia due to other Gram-negative bacteria; J96.01 Acute respiratory failure with hypoxia; J12.82 Pneumonia due to coronavirus disease 2019; J44.0 Chronic obstructive pulmonary disease with (acute) lower respiratory infection; J44.1 Chronic obstructive pulmonary disease with (acute) exacerbation; I48.91 Unspecified atrial fibrillation; Z79.899 Other long term (current) drug therapy; E66.9 Obesity, unspecified; Z68.36 Body mass index [BMI] 36.0-36.9, adult; F17.210 Nicotine dependence, cigarettes, uncomplicated; I50.9 Heart failure, unspecified; Z66 Do not resuscitate; Z79.01 Long term (current) use of anticoagulants; M06.9 Rheumatoid arthritis, unspecified; F10.10 Alcohol abuse, uncomplicated